=== PATIENT | female | born 1960 | race Caucasian/White ===

== ENCOUNTER 2017-10-31 03:47 | Emergency (ER) | payer MEDICAID ==
[~2017-10-31] VITALS: Ht 157.5 cm; Wt 120.2 kg
[~2017-10-31 03:47] MED LIST: 12 HOUR DECONG120 MG PO; ABILIFY; ABILIFY 5 MG TAB5 M1 PO; ABILIFY10 MG PO; ACETAMINOPHEN325 M1 PO; ACTOS 45 MG45 M1; ADVAIR HFA 230M12 GM INH; ALBUTEROL INH INH; ALBUTEROL2.5 MG/0.1 INH; ALDACTONE25 MG; ASPIR 8181 MG PO; ASPIRIN325 PO; AUGMENTIN 875-1 EACH PO; AUGMENTIN 875875 M1 PO; AUGMENTIN 875875 MG PO; AZITHROMYCIN; AZITHROMYCIN 2250 MG PO; AZITHROMYCIN250 MG PO; AZO CRANBERRY1 EAC1; AZO STANDARD95 MG; CARDIZEM CD240 MG PO; CEFTIN500 MG PO; CEFUROXIME250 MG PO; CEFUROXIME500 MG PO; CELEBREX 200 M200 M1; CHLORTHALIDONE25 MG PO; CIPRO250 M2 PO; CIPRO500 MG PO; CIPROFLOXACIN500 M1 PO; CLEOCIN HCL300 MG PO; CLONAZEPAM 1 MG1 M1; CLONAZEPAM 1 MG1 M1 PO; COMPAZINE5 MG; CRESTOR10 MG; CYMBALTA20 MG PO; CYMBALTA60 MG PO; DIFLUCAN150 MG PO; DOXYCYCLINE 10100 MG PO; DUONEB 2.5-0.5 M3 ML; DUONEB 2.5-0.5 M3 ML INH; FISH OIL 1,001000 M2; FISH OIL 1,001000 M2 PO; FISHOIL; FLONASE 0.05%50 MCG NASAL; FUROSEMIDE 40 M40 M1 PO; GABAPENTIN 100100 MG PO; GEMFIBROZIL 60600 MG PO; GLUCOPHAGE500 MG PO; GLUCOPHAGE850 MG PO; GLUCOTROL5 MG PO; HYDROCODON-ACE1 EACH PO; INVOKANA100 MG PO; IRON325 PO; K-DUR10 ME1; KETOCONAZOLE15 GM TOP; KLONAPIN; KLOR-CON 1010 MEQ PO; LANTUS100 UNIT/M SUBQ; LASIX 80 MG TAB80 MG PO; LEVAQUIN 500 M500 M2 PO; LEVAQUIN 500 M500 M5 PO; LEVAQUIN 500 M500 MG PO; LEVAQUIN 750 M750 MG PO; LEVAQUIN PO; LEVEMIR SUBQ; LEVOTHYROXINE 0.1 MG PO; LIDODERM 5%1 PATCH TRANSDERM; LIPITOR; LIPITOR40 MG PO; LISINOPRIL20 MG PO; LORTAB 10-3251 EACH PO; MAGOX 400400 MG PO; METFORMIN HCL500 MG PO; METOPROLOL; METOPROLOL SUC100 MG PO; METROGEL-VAGINA70 GM VG; MIRALAX17 GM PO; MIRALAX255 GM; MUCINEX TA600 MG/TA2 PO; MUCINEX600 MG PO; NAPROSYN500 MG PO; NASONEX17 GM; NASONEX17 GM NASAL; NEURONTIN600 MG; NITROGLYCERIN0.4 MG SL; NITROGLYCERIN0.4 MG SUBLING; NITROSTAT0.4 MG; NORCO 5-325 TA1 EACH PO; NOVOLOG100 UNIT/1 SUBQ; NOVOLOG100 UNIT/M SUBQ; NYSTATIN 1100000 U/M PO; NYSTATIN1 EAC9; OMEGA-31000 M1 PO; OMEPRAZOLE40 MG PO; ONDANSETRON HCL4 M2 PO; ONE TOUCH DELI1 EACH MC; OSTERA TABLET1 EAC1 PO; OXYCONTIN80 M1; OXYIR5 MG PO; PAXIL20 MG; PERCOCET 7.5-31 EACH PO; PERCOCET PO; PLAVIX 75 MG TA75 M1 PO; PLAVIX 75 MG TA75 MG; PREDNISONE 10 M10 M1 PO; PREDNISONE 10 M10 MG PO; PREDNISONE 20 M20 MG PO; PREDNISONE50 MG PO; PRINIVIL40 MG PO; PROAIR HFA8.5 GM INH; PROTONIX40 M1 PO; PROTONIX40 M4 PO; PYRIDIUM200 MG PO; REGLAN 10 MG TA10 MG PO; SENOKOT-S1 TA1; SEROQUEL 100 M100 M1 PO; SINGULAIR 10 MG10 M1 PO; SPIRIVA INH; SPIRONOLACTONE50 MG PO; SYMBICORT160 MCG/4. INH; SYMBICORT80 MCG/4.1 INH; TESSALON PERLE100 MG PO; TOPROL XL25 MG; TRICOR145 MG; TYLENOL325 MG PO; VENTOLIN HFA 1818 GM INH; ZEGERID 20 MG1 EACH; ZEGERID OTC 201 EACH PO; ZOFRAN 4 MG ORAL4 MG PO; ZPAK PO; [UNRECOGNIZED DRUG - OTHER]
[2017-10-31] MEDS ORDERED: HYDROXYZINE HCL25 M1 PO (05:11)
[2017-10-31] MEDS ORDERED: PREDNISONE50 MG PO (05:11)
[2017-10-31] MEDS ORDERED: VALIUM5 MG PO (05:11)
[2017-10-31 05:32] VITALS: BP 129/63
== END 2017-10-31 05:41 | disposition home or self-care (01) ==
LOC: M.ERS 03:47
DX: L29.9 Pruritus, unspecified (principal); I15.0 Renovascular hypertension; J44.9 Chronic obstructive pulmonary disease, unspecified; G89.29 Other chronic pain; F41.9 Anxiety disorder, unspecified; E11.9 Type 2 diabetes mellitus without complications; K76.0 Fatty (change of) liver, not elsewhere classified; Z87.01 Personal history of pneumonia (recurrent); Z95.5 Presence of coronary angioplasty implant and graft; Z87.891 Personal history of nicotine dependence

== ENCOUNTER 2018-03-14 22:09 | Inpatient (IN) | payer MEDICAID ==
[~2018-03-14] VITALS: Ht 157.5 cm; Wt 121.1 kg
[~2018-03-14 22:09] MED LIST changes: +HYDROXYZINE HCL25 M1 PO; +VALIUM5 MG PO
[2018-03-14 22:16] VITALS: BP 145/66
[2018-03-14 22:36] LABS: ABSOLUTE BASOPHILS 0.3 thou/uL (0.0-0.2); ABSOLUTE EOSINOPHILS 0.6 thou/uL (0.0-0.7); ABSOLUTE NEUTROPHILS 11.7 thou/uL (1.6-8.1); BASOPHILS 1.4 %; EOSINOPHILS 3.2 %; HEMOGLOBIN 12.2 gm/dL (12.0-15.0); LYMPHOCYTES 22.6 %; MCH 26.9 pg (26.0-34.0); MCHC 32.1 g/dL (28.0-37.0); MCV 83.9 fL (80.0-100.0); MONOCYTES 5.9 %; MPV 7.6 fl. (7.2-11.1); NUCLEATED RBCS 0 /100WBC; PLATELET COUNT* 394 thou/uL (150-400); POLYS 66.9 %; RBC 4.53 mil/uL (4.20-5.00); RDW-CV 14.5 % (10.5-14.5); WBC 17.5 thou/uL (4.0-11.0)
[2018-03-14 22:45] LABS: ANION GAP 11 mmol/L (7-16); BUN 16 mg/dL (7-18); CALCIUM 9.4 mg/dL (8.5-10.1); CHLORIDE 91 mmol/L (98-107); CO2 31 mmol/L (21-32); CREATININE 0.8 mg/dL (0.6-1.3); GLUCOSE 288 mg/dL (70-99); POTASSIUM 3.9 mmol/L (3.5-5.1); SODIUM 133 mmol/L (136-145)
[2018-03-14 22:55] LABS: ALBUMIN 3.3 g/dL (3.4-5.0); ALKALINE PHOSPHATASE 184 U/L (46-116); NT-PRO BRAIN NAT PEPTIDE 37 pg/mL (<300); SGOT 46 U/L (15-37); SGPT 22 U/L (30-65); TOTAL BILIRUBIN 0.3 mg/dL (<0.1-1.0); TOTAL PROTEIN 8.6 g/dL (6.4-8.2); TROPONIN-I LEVEL <0.06 ng/mL (<0.06)
[2018-03-15 00:59] VITALS: BP 117/45
[2018-03-15 01:40] VITALS: BP 127/45
[2018-03-15] MEDS ORDERED: HYDROCODONE-ACE15 ML PO (02:04)
--- NOTE | 2018-03-15 04:10 | NUR ---
PT TO FLOOR APROX 0100, ASSUMED CARE. PT A&O X4 CALM COOPERITVE. STAND BY ASSIST. SR ON THE MONITOR. 3L O2. FLUIDS GOING. SEE MAR. SEE CHARTING. VITALS WNL. FALL PRECAUTIONS IN PLACE. HOURLY ROUNDING FOR SAFETY.
[2018-03-15 08:00] VITALS: BP 138/56
--- NOTE | 2018-03-15 11:35 | NUR ---
Pt is A&O. Known to this CM from previous hospital stays. Pt resides at home with her dtr. Pt has inhome care providers, through [facility], they come 7 days/week for 3 hrs/day. [facility] provides cooking and cleaning and also assists Pt with bath, grooming and dressing. Pt has a walker, cane and wc at home that she uses for mobility. Pt stated that a friend of hers is going to install grab bars in her shower. Pt wears home o2 and bipap through [employer]. No hx of HH or SNF. Supportive family that is involved in POC. Pt is hopeful to be able to dc prior to the holiday weekend. Following.
[2018-03-15 12:30] VITALS: BP 139/50
--- NOTE | 2018-03-15 15:17 | NUR ---
[facility] CARE OF PATIENT THIS AM AT 0730. PATIENT IS ALERT AND ORIENTED X 4. SHE C/O CHRONIC BACK PAIN THIS AM. PATIENT'S MEDICATIONS HAD NOT BEEN ORDERED INITIALLY THIS AM. HER BLOOD SUGAR WAS 418. PATIENT'S DR NOTIFIED AND ORDERS STARTED. PATIENT MEDICATED FOR PAIN X 1 THIS AM. PATIENT STATED THAT PAIN HAD DECREASED BUT WAS STILL PRESENT. PATIENT'S REPEAT BLOOD SUGAR WAS >500. STAT LAB PERFORMED. DR ALVAREZ NOTIFIED OF THE RESULTS. PATIENT REMEDICATED FOR BLOOD SUGAR CONTROL. IV FLUIDS INFUSING PER ORDER. TELE SHOWS NSR. PATIENT REQUESTING MORE PAIN MEDICATION. PATIENT INFORMED THAT PAIN MEDICATION HAD BEEN DISCONTINUED AT THIS TIME. REQUESTED PATIENT GIVE HER CURRENT PHARMACY FOR HER PAIN MEDICATION SHE TAKES A OUTPATIENT. PATIENT WAS UNABLE TO PROVIDE THE INFORMATION REQUESTED AT THIS TIME. PATIENT GIVEN TYLENOL PO X 1 FOR PAIN. SHE IS RESTING AT THIS TIME. TELE SHOWS NSR. WILL CONTINUE TO MONITOR. IV FLUIDS GIVEN PER [facility]PS[facility].
[2018-03-15 16:23] VITALS: BP 139/44
--- NOTE | 2018-03-15 16:27 | EKG ---
[place] [address] ELECTROCARDIOGRAM REPORT Name: LEILA ANAND Room: [address] IN .R.#: [id number] Admission: 03/14/18 Attend Phys: Evie Pryor Discharge: Date of : 58 Report #: [id number] THIS REPORT FOR: //name// [facility] ED Test Date: 2018-03-14 Test Time: 23:01:48 Pat Name: LEILA ANAND Department: Room: Gender: Airfield Services Officer: JOAO Stark : 1960 Requested By: Irvin Andrade Order Number: [id number] MD: Adolph Lanza Measurements Intervals [place] Rate: 96 P: 75 IN: 143 QRS: -27 QRSD: 81 T: 69 QT: 366 QTc: 463 Interpretive Statements Sinus rhythm Atrial premature complex Borderline left axis deviation Compared to ECG 10/17/2017 01:14:25 Atrial premature complex(es) now present Myocardial infarct finding no longer present Electronically Signed On 03-15-2018 16:27:42 CDT by Adolph Lanza [email or web address] <ELECTRONICALLY SIGNED> By: Adolph Lanza MD, [facility] 03/15/18 1627 230 230 Adolph Lanza MD, [facility] /EPI
[2018-03-15 19:40] VITALS: BP 120/50
[2018-03-16] VITALS: BP 163/66
[2018-03-16 04:39] VITALS: BP 104/51
[2018-03-16 05:04] LABS: ABSOLUTE LYMPHOCYTES 1.5 thou/uL (0.8-5.3); ABSOLUTE MONOCYTES 0.8 thou/uL (0.0-1.2); ABSOLUTE NEUTROPHILS 11.2 thou/uL (1.6-8.1); BASOPHILS 0.2 %; EOSINOPHILS 0.1 %; HEMATOCRIT 34.7 % (37.0-47.0); HEMOGLOBIN 10.8 gm/dL (12.0-15.0); MCH 26.5 pg (26.0-34.0); MCHC 31.2 g/dL (28.0-37.0); MCV 84.8 fL (80.0-100.0); NUCLEATED RBCS 0 /100WBC; PLATELET COUNT* 326 thou/uL (150-400); POLYS 82.7 %; RBC 4.09 mil/uL (4.20-5.00); RDW-CV 14.6 % (10.5-14.5); WBC 13.5 thou/uL (4.0-11.0)
[2018-03-16 05:41] LABS: CALCIUM 9.6 mg/dL (8.5-10.1); CREATININE 0.9 mg/dL (0.6-1.3); POTASSIUM 4.4 mmol/L (3.5-5.1)
--- NOTE | 2018-03-16 06:02 | NUR ---
PT CRIT GLUCOSE 551, PROVIDER NOTIFED NEW ORDERS GIVEN, ADJUST INSULIN. SR ON THE MONITOR. RA. STAND BY ASSIST. SEE MAR. SEE CHARTING. VITALS WNL. FALL PRECAUTIONS IN PLACE, PT IS NONE COMPLIENT WITH FALL RISK. HOURLY ROUNDING FOR SAFETY.
[2018-03-16 08:00] VITALS: BP 108/60
--- NOTE | 2018-03-16 10:00 | NUR ---
ASSUMED CARE OF PT AFTER REPORT. PT IS ALERT AND ORIENTED X4. VITAL SIGNS TAKEN AND RECORDED. PHYSICAL ASSESSMENT COMPLETED AND CHARTED. PT COMPLAINED OF BACK AND KNEE PAIN WITH PAIN SCALE OF 8/10. DENIES NEED OF PAIN MEDICATION OF THE MOMENT. UP WITH TOBYBY ASSIST. CALL LIGHT WITHIN REACH. WILL CONTINUE TO MONITOR PT.
[2018-03-16 11:53] VITALS: BP 133/54
[2018-03-16] MEDS ORDERED: SERTRALINE HCL50 MG PO (12:55)
--- NOTE | 2018-03-16 12:55 | NUR ---
CALLED PT'S PHARMACY TO VERIFY SOME OF THE MEDICATIONS PT REPORTS TAKING. PT'S PHARMACY DOES NOT HAVE HYDROCODONE ON FILE FOR PT. PHARMACY DID HAVE RECENT REFILL FOR ZOLOFT 50MG-THIS MEDICATION ADDED TO PT'S HOME MED REC IN SYSTEM.
[2018-03-16 16:00] VITALS: BP 116/69
--- NOTE | 2018-03-16 18:27 | NUR ---
PT COMPLAINED OF BACK PAIN AT 1100. VERIFIED TO REGARDING THE HYDROCODONE ORAL SUSPENSION. WHILE WAITING FOR THE REPLY DECIDED TO GIVE PAIN MEDS ORAL SUSPENSION DUE TO PERSISTENT LOWER BACK PAIN WITH PAIN SCALE OF 8/10. CHECKED AFTER AN HOUR AND PARTIAL RELIEF OF PAIN NOTED.HYDROCODONE ORAL SUSPENSION WAS SHIFTED TO TABLET. POC GLUCOSE WAS >500. SENT LAB STAT ORDER FOR GLUCOSE. SUNITA FROM LAB CALLED BACK AND THE RESULT OF GLUCOSE IS [address] ALVAREZ WITH NEW ORDER TO GIVE 60 UNITS OF INSULIN GLARGINE. GENERALLY BACK PAIN WAS RELIEVED BY ORAL MEDS. STILL SR ON TELE. CALL LIGHT WITHIN REACH. WILL CONTINUE TO MONITOR PT.
[2018-03-16 20:10] VITALS: BP 127/64
[2018-03-17 00:33] VITALS: BP 103/34
[2018-03-17 04:08] VITALS: BP 113/60
[2018-03-17 08:00] VITALS: BP 119/82
--- NOTE | 2018-03-17 09:57 | NUR ---
Nutrition: BMI 49. Pt's wt has been coming down over time. 10# loss in past 6 months. We have discussed diet on several occasions. Pt is always very receptive to info. BG was 537, now 256. Albumin 3.3. +BM. Back pain. GOAL: continued weight loss over time. Low nutrition risk.
[2018-03-17] MEDS ORDERED: AUGMENTIN 875-1 EACH PO (10:45)
[2018-03-17] MEDS ORDERED: PREDNISONE 10 M10 MG PO (10:50)
[2018-03-17 10:51] VITALS: BP 119/82
--- NOTE | 2018-03-17 12:16 | NUR ---
ASSUMED PT CARE AFTER REPORT. ALERT AND ORIENTED X 4. VITAL SIGNS TAKEN AND RECORDED. PHYSICAL ASSESSMENT COMPLETED AND CHARTED. ON NASAL CANNULA @ 3LPM. UP WITH STANDBY ASSIST. COMPLAINED OF BACK PAIN AND TREATED WITH MEDICATIONS. CALL LIGHT WITHIN REACH. WILL CONTINUE TO MONITOR PT.
== END 2018-03-17 16:00 | disposition home or self-care (01) | DRG 193 ==
LOC: M.ERS 22:09 → M.2W 22:59 → M.TBA-ER 22:59 → M.2W 03-15 00:38
PROVIDERS: Family Medicine; Internal Medicine; ADMIT Internal Medicine
DX: J18.9 Pneumonia, unspecified organism (principal); J96.20 Acute and chronic respiratory failure, unspecified whether with hypoxia or hypercapnia; J44.1 Chronic obstructive pulmonary disease with (acute) exacerbation; E87.2 Acidosis; R65.10 Systemic inflammatory response syndrome (SIRS) of non-infectious origin without acute organ dysfunction; Z68.42 Body mass index [BMI] 45.0-49.9, adult; J44.0 Chronic obstructive pulmonary disease with (acute) lower respiratory infection; I50.9 Heart failure, unspecified; G89.29 Other chronic pain; F32.9 Major depressive disorder, single episode, unspecified; F41.9 Anxiety disorder, unspecified; E11.9 Type 2 diabetes mellitus without complications; E78.00 Pure hypercholesterolemia, unspecified; E11.65 Type 2 diabetes mellitus with hyperglycemia; E66.01 Morbid (severe) obesity due to excess calories; Z99.81 Dependence on supplemental oxygen; Z90.49 Acquired absence of other specified parts of digestive tract; Z98.61 Coronary angioplasty status; Z87.01 Personal history of pneumonia (recurrent); Z79.899 Other long term (current) drug therapy; Z79.4 Long term (current) use of insulin; Z87.891 Personal history of nicotine dependence

== ENCOUNTER 2018-04-02 23:34 | Emergency (ER) | payer MEDICAID ==
[~2018-04-02] VITALS: Ht 157.5 cm; Wt 120.2 kg
[~2018-04-02 23:34] MED LIST changes: +HYDROCODONE-ACE15 ML PO; +SERTRALINE HCL50 MG PO
[2018-04-02] MEDS ORDERED: CLONAZEPAM 1 MG1 M1 (23:47)
[2018-04-03 00:36] LABS: URINE BILIRUBIN NEGATIVE (Negative); URINE BLOOD NEGATIVE (Negative); URINE CLARITY CLEAR; URINE COLOR YELLOW; URINE GLUCOSE-RANDOM 2+ (Negative); URINE KETONES NEGATIVE (Negative); URINE LEUKOCYTES-REFLEX NEGATIVE (Negative); URINE NITRITE-REFLEX NEGATIVE (Negative); URINE PROTEIN TRACE (Negative); URINE UROBILINOGEN 0.2 E.U./dl (0.2-1.0)
[2018-04-03 00:47] LABS: ABSOLUTE EOSINOPHILS 0.4 thou/uL (0.0-0.7); ABSOLUTE LYMPHOCYTES 3.8 thou/uL (0.8-5.3); ABSOLUTE MONOCYTES 1.2 thou/uL (0.0-1.2); ABSOLUTE NEUTROPHILS 8.2 thou/uL (1.6-8.1); BASOPHILS 0.2 %; EOSINOPHILS 2.9 %; HEMATOCRIT 35.3 % (37.0-47.0); HEMOGLOBIN 11.2 gm/dL (12.0-15.0); LYMPHOCYTES 27.9 %; MCH 27.1 pg (26.0-34.0); MCHC 31.7 g/dL (28.0-37.0); MCV 85.4 fL (80.0-100.0); MONOCYTES 8.5 %; MPV 7.6 fl. (7.2-11.1); NUCLEATED RBCS 0 /100WBC; PLATELET COUNT* 299 thou/uL (150-400); POLYS 60.5 %; RBC 4.14 mil/uL (4.20-5.00); RDW-CV 15.3 % (10.5-14.5); WBC 13.6 thou/uL (4.0-11.0)
[2018-04-03 01:01] LABS: CALCIUM 9.5 mg/dL (8.5-10.1); CREATININE 0.8 mg/dL (0.6-1.3); POTASSIUM 4.7 mmol/L (3.5-5.1)
[2018-04-03 01:06] LABS: ALBUMIN 3.2 g/dL (3.4-5.0); TOTAL BILIRUBIN 0.4 mg/dL (<0.1-1.0)
[2018-04-03] MEDS ORDERED: AUGMENTIN 875-1 EACH PO (01:39)
[2018-04-03 02:04] VITALS: BP 122/72
== END 2018-04-03 02:11 | disposition home or self-care (01) ==
LOC: M.ERS 23:34
PROVIDERS: Emergency Medicine; Nurse Practitioner Family
DX: R50.9 Fever, unspecified (principal); I11.0 Hypertensive heart disease with heart failure; I50.9 Heart failure, unspecified; G89.29 Other chronic pain; M54.9 Dorsalgia, unspecified; F41.9 Anxiety disorder, unspecified; E11.9 Type 2 diabetes mellitus without complications; F41.0 Panic disorder [episodic paroxysmal anxiety]; Z87.891 Personal history of nicotine dependence; Z90.49 Acquired absence of other specified parts of digestive tract; Z95.5 Presence of coronary angioplasty implant and graft; Z79.4 Long term (current) use of insulin

== ENCOUNTER 2018-06-12 21:26 | Emergency (ER) | payer MEDICAID ==
[~2018-06-12] VITALS: Ht 157.5 cm; Wt 111.6 kg
[2018-06-12] MEDS ORDERED: ZEGERID 20 MG1 EACH (21:49)
[2018-06-12 22:29] LABS: ABSOLUTE BASOPHILS 0.1 thou/uL (0.0-0.2); ABSOLUTE EOSINOPHILS 0.4 thou/uL (0.0-0.7); ABSOLUTE LYMPHOCYTES 3.1 thou/uL (0.8-5.3); ABSOLUTE MONOCYTES 1.1 thou/uL (0.0-1.2); ABSOLUTE NEUTROPHILS 8.2 thou/uL (1.6-8.1); BASOPHILS 0.9 %; EOSINOPHILS 3.1 %; HEMATOCRIT 38.1 % (37.0-47.0); HEMOGLOBIN 12.1 gm/dL (12.0-15.0); MCH 27.1 pg (26.0-34.0); MCHC 31.9 g/dL (28.0-37.0); MONOCYTES 8.2 %; MPV 7.1 fl. (7.2-11.1); NUCLEATED RBCS 0 /100WBC; PLATELET COUNT* 333 thou/uL (150-400); POLYS 63.8 %; RBC 4.48 mil/uL (4.20-5.00); RDW-CV 14.7 % (10.5-14.5); WBC 12.9 thou/uL (4.0-11.0)
[2018-06-12 22:43] LABS: ANION GAP 6 mmol/L (7-16); BUN 14 mg/dL (7-18); CALCIUM 8.7 mg/dL (8.5-10.1); CHLORIDE 96 mmol/L (98-107); CO2 35 mmol/L (21-32); CREATININE 0.8 mg/dL (0.6-1.3); GLUCOSE 286 mg/dL (70-99); POTASSIUM 4.1 mmol/L (3.5-5.1); SODIUM 137 mmol/L (136-145)
[2018-06-12 22:54] LABS: ALBUMIN 3.2 g/dL (3.4-5.0); ALKALINE PHOSPHATASE 216 U/L (46-116); NT-PRO BRAIN NAT PEPTIDE 69 pg/mL (<300); SGOT 54 U/L (15-37); SGPT 32 U/L (30-65); TOTAL BILIRUBIN 0.3 mg/dL (<0.1-1.0); TOTAL PROTEIN 8.5 g/dL (6.4-8.2); TROPONIN-I LEVEL <0.06 ng/mL (<0.06)
[2018-06-12 23:42] LABS: ESR (SEDRATE) 61 mm/hr (0-30)
[2018-06-12] MEDS ORDERED: AUGMENTIN 875-1 EACH PO (23:45)
[2018-06-12] MEDS ORDERED: NORCO 7.5-3251 EACH PO (23:45)
[2018-06-13 00:41] LABS: URINE BILIRUBIN NEGATIVE (Negative); URINE BLOOD TRACE (Negative); URINE CLARITY SL CLOUDY; URINE COLOR YELLOW; URINE GLUCOSE-RANDOM 1+ (Negative); URINE KETONES NEGATIVE (Negative); URINE LEUKOCYTES-REFLEX NEGATIVE (Negative); URINE NITRITE-REFLEX NEGATIVE (Negative); URINE PROTEIN 1+ (Negative); URINE SPECIFIC GRAVITY >= 1.030 (1.005-1.030); URINE UROBILINOGEN 0.2 E.U./dl (0.2-1.0)
[2018-06-13 01:17] VITALS: BP 120/56
[2018-06-13 01:34] LABS: CASTS None Seen /LPF (None Seen); SQUAMOUS >10 Many /LPF (0-3)
[2018-06-13 01:35] LABS: URINE RBC 3-10 Few /HPF (0-2); URINE WBC-REFLEX 0-5 Rare /HPF (0-5)
[2018-06-13 01:36] LABS: BACTERIA-REFLEX >30 Many /HPF (None Seen); CRYSTALS None Seen /LPF (None Seen)
--- NOTE | 2018-06-13 09:40 | EKG ---
[place] [address] ELECTROCARDIOGRAM REPORT Name: LEILA ANAND Room: [facility]#: [id number] Admission: 06/12/18 Attend Phys: Discharge: 06/13/18 Date of : 58 Report #: [id number] THIS REPORT FOR: //name// [facility] ED Test Date: 2018-06-12 Test Time: 22:51:22 Pat Name: LEILA ANAND Department: Room: Gender: F Receiving Clerk: VIRA : 1960 Requested By: Trista Avila Order Number: [id number] MD: Kobe Tan Measurements Intervals [place] Rate: 94 P: 55 [place]: 150 QRS: -25 QRSD: 76 T: 73 QT: 358 QTc: 448 Interpretive Statements Sinus rhythm Borderline left axis deviation Minimal ST elevation, lateral leads Compared to ECG 03/14/2018 23:01:48 ST (T wave) deviation now present Atrial premature complex(es) no longer present Electronically Signed On 06-13-2018 9:40:18 CDT by Kobe Tan [email or web address] <ELECTRONICALLY SIGNED> By: Kobe Tan MD, FAC 06/13/18 0940 2251 225 Kobe Tan MD, [facility] /EPI
== END 2018-06-13 01:18 | disposition home or self-care (01) ==
LOC: M.ERS 21:26
PROVIDERS: Emergency Medicine
DX: J18.9 Pneumonia, unspecified organism (principal); T43.225A Adverse effect of selective serotonin reuptake inhibitors, initial encounter; I11.0 Hypertensive heart disease with heart failure; I50.9 Heart failure, unspecified; J44.9 Chronic obstructive pulmonary disease, unspecified; G89.29 Other chronic pain; M54.9 Dorsalgia, unspecified; F32.9 Major depressive disorder, single episode, unspecified; F41.9 Anxiety disorder, unspecified; F41.0 Panic disorder [episodic paroxysmal anxiety]; E11.9 Type 2 diabetes mellitus without complications; E78.00 Pure hypercholesterolemia, unspecified; Z95.5 Presence of coronary angioplasty implant and graft; Z90.49 Acquired absence of other specified parts of digestive tract; Z79.4 Long term (current) use of insulin; Z87.891 Personal history of nicotine dependence; Y92.89 Other specified places as the place of occurrence of the external cause

== ENCOUNTER 2018-06-19 12:10 | Emergency (ER) | payer MEDICAID ==
[~2018-06-19] VITALS: Ht 157.5 cm; Wt 118.4 kg
[~2018-06-19 12:10] MED LIST changes: +NORCO 7.5-3251 EACH PO
[2018-06-19 12:53] LABS: ABSOLUTE BASOPHILS 0.1 thou/uL (0.0-0.2); ABSOLUTE EOSINOPHILS 0.4 thou/uL (0.0-0.7); ABSOLUTE LYMPHOCYTES 3.3 thou/uL (0.8-5.3); ABSOLUTE MONOCYTES 0.9 thou/uL (0.0-1.2); ABSOLUTE NEUTROPHILS 8.7 thou/uL (1.6-8.1); BASOPHILS 1.1 %; HEMOGLOBIN 12.6 gm/dL (12.0-15.0); LYMPHOCYTES 24.6 %; MCH 27.1 pg (26.0-34.0); MCHC 32.2 g/dL (28.0-37.0); MCV 84.3 fL (80.0-100.0); MONOCYTES 6.8 %; MPV 7.3 fl. (7.2-11.1); NUCLEATED RBCS 0 /100WBC; PLATELET COUNT* 367 thou/uL (150-400); POLYS 64.5 %; RBC 4.63 mil/uL (4.20-5.00); RDW-CV 14.9 % (10.5-14.5); WBC 13.5 thou/uL (4.0-11.0)
[2018-06-19 13:07] LABS: ANION GAP 7 mmol/L (7-16); BUN 11 mg/dL (7-18); CALCIUM 9.4 mg/dL (8.5-10.1); CHLORIDE 95 mmol/L (98-107); CO2 32 mmol/L (21-32); CREATININE 0.7 mg/dL (0.6-1.3); GLUCOSE 324 mg/dL (70-99); POTASSIUM 4.7 mmol/L (3.5-5.1); SODIUM 134 mmol/L (136-145)
[2018-06-19 13:13] LABS: ALBUMIN 3.3 g/dL (3.4-5.0); ALKALINE PHOSPHATASE 213 U/L (46-116); NT-PRO BRAIN NAT PEPTIDE 39 pg/mL (<300); SGOT 53 U/L (15-37); SGPT 28 U/L (30-65); TOTAL BILIRUBIN 0.3 mg/dL (<0.1-1.0); TOTAL PROTEIN 8.6 g/dL (6.4-8.2); TROPONIN-I LEVEL <0.06 ng/mL (<0.06)
[2018-06-19] MEDS ORDERED: ADVAIR HFA 230M12 GM INH (13:33)
[2018-06-19] MEDS ORDERED: AUGMENTIN 875-1 EACH PO (13:33)
[2018-06-19] MEDS ORDERED: VENTOLIN HFA 1818 GM INH (13:33)
[2018-06-19] MEDS ORDERED: MEDROLDOSEPACK PO (13:33)
[2018-06-19] MEDS ORDERED: TESSALON PERLE100 MG PO (13:41)
[2018-06-19 13:57] VITALS: BP 148/54
--- NOTE | 2018-06-19 15:14 | EKG ---
[place] [address] ELECTROCARDIOGRAM REPORT Name: LEILA ANAND Amanda Room: [facility]#: [id number] Admission: 06/19/18 Attend Phys: Discharge: 06/19/18 Date of : 58 Report #: [id number] THIS REPORT FOR: //name// [facility] ED Test Date: 2018-06-19 Test Time: 12:25:49 Pat Name: LEILA ANAND Department: Room: Gender: F Desktop Operator: Mi LACKEY : 1960 Requested By: Amilcar Stephens Order Number: [id number] MD: Adolph Lanza Measurements Intervals [place] Rate: 95 P: 58 [place]: 148 QRS: -29 QRSD: 80 T: 81 QT: 346 QTc: 435 Interpretive Statements Sinus rhythm Borderline left axis deviation Low voltage, precordial leads Consider anterior infarct Baseline wander in lead(s) V4 Compared to ECG 06/12/2018 22:51:22 Low QRS voltage now present Myocardial infarct finding now present ST (T wave) deviation no longer present Electronically Signed On 06-19-2018 15:14:44 CDT by Adolph Lanza [email or web address] <ELECTRONICALLY SIGNED> By: Adolph Lanza MD, FAC 06/19/18 1514 1225 1225 Adolph Lanza MD, FAC /EPI
== END 2018-06-19 13:58 | disposition home or self-care (01) ==
LOC: M.ERS 12:10
PROVIDERS: Emergency Medicine
DX: J44.9 Chronic obstructive pulmonary disease, unspecified (principal); I11.0 Hypertensive heart disease with heart failure; I50.9 Heart failure, unspecified; K76.0 Fatty (change of) liver, not elsewhere classified; G89.29 Other chronic pain; M54.9 Dorsalgia, unspecified; F32.9 Major depressive disorder, single episode, unspecified; F41.0 Panic disorder [episodic paroxysmal anxiety]; E11.9 Type 2 diabetes mellitus without complications; E78.00 Pure hypercholesterolemia, unspecified; Z98.890 Other specified postprocedural states; Z95.5 Presence of coronary angioplasty implant and graft; Z90.49 Acquired absence of other specified parts of digestive tract; Z87.891 Personal history of nicotine dependence; Z88.8 Allergy status to other drugs, medicaments and biological substances

== ENCOUNTER 2018-09-21 19:19 | Emergency (ER) | payer MEDICAID ==
[~2018-09-21] VITALS: Ht 157.5 cm; Wt 110.7 kg
[~2018-09-21 19:19] MED LIST changes: +MEDROLDOSEPACK PO
[2018-09-21] MEDS ORDERED: CIPRODEX OTIC7.5 ML OTIC (19:46)
[2018-09-21 20:04] VITALS: BP 172/86
== END 2018-09-21 20:04 | disposition home or self-care (01) ==
LOC: M.ERS 19:19
DX: H60.92 Unspecified otitis externa, left ear (principal); I11.0 Hypertensive heart disease with heart failure; I50.9 Heart failure, unspecified; J44.9 Chronic obstructive pulmonary disease, unspecified; G89.29 Other chronic pain; M54.9 Dorsalgia, unspecified; F32.9 Major depressive disorder, single episode, unspecified; F41.0 Panic disorder [episodic paroxysmal anxiety]; E11.9 Type 2 diabetes mellitus without complications; E78.00 Pure hypercholesterolemia, unspecified; Z87.01 Personal history of pneumonia (recurrent); Z95.5 Presence of coronary angioplasty implant and graft; Z90.49 Acquired absence of other specified parts of digestive tract; Z98.890 Other specified postprocedural states; Z87.891 Personal history of nicotine dependence; Z88.8 Allergy status to other drugs, medicaments and biological substances; Z79.4 Long term (current) use of insulin

== ENCOUNTER 2018-12-28 21:35 | Emergency (ER) | payer MEDICAID ==
[~2018-12-28] VITALS: Ht 157.5 cm; Wt 113.8 kg
[~2018-12-28 21:35] MED LIST changes: +CIPRODEX OTIC7.5 ML OTIC
[2018-12-28] MEDS ORDERED: U-500 SUBQ (21:50)
[2018-12-28 22:14] LABS: ABSOLUTE BASOPHILS 0.1 thou/uL (0.0-0.2); ABSOLUTE EOSINOPHILS 0.4 thou/uL (0.0-0.7); ABSOLUTE LYMPHOCYTES 4.2 thou/uL (0.8-5.3); ABSOLUTE NEUTROPHILS 6.7 thou/uL (1.6-8.1); BASOPHILS 0.7 %; EOSINOPHILS 3.3 %; HEMATOCRIT 37.9 % (37.0-47.0); HEMOGLOBIN 12.3 gm/dL (12.0-15.0); LYMPHOCYTES 33.7 %; MCH 27.8 pg (26.0-34.0); MCHC 32.4 g/dL (28.0-37.0); MCV 85.7 fL (80.0-100.0); MONOCYTES 8.4 %; MPV 7.5 fl. (7.2-11.1); NUCLEATED RBCS 0 /100WBC; PLATELET COUNT* 303 thou/uL (150-400); POLYS 53.9 %; RBC 4.42 mil/uL (4.20-5.00); RDW-CV 14.7 % (10.5-14.5); WBC 12.5 thou/uL (4.0-11.0)
[2018-12-28 22:21] LABS: ALBUMIN 3.2 g/dL (3.4-5.0); CALCIUM 9.4 mg/dL (8.5-10.1); CREATININE 0.8 mg/dL (0.6-1.3); POTASSIUM 4.6 mmol/L (3.5-5.1); TOTAL BILIRUBIN 0.2 mg/dL (<0.1-1.0); TOTAL PROTEIN 7.6 g/dL (6.4-8.2)
[2018-12-28 23:25] LABS: URINE BILIRUBIN NEGATIVE (Negative); URINE BLOOD NEGATIVE (Negative); URINE CLARITY CLEAR; URINE COLOR YELLOW; URINE GLUCOSE-RANDOM NEGATIVE (Negative); URINE KETONES NEGATIVE (Negative); URINE LEUKOCYTES-REFLEX NEGATIVE (Negative); URINE NITRITE-REFLEX NEGATIVE (Negative); URINE PROTEIN 1+ (Negative); URINE SPECIFIC GRAVITY 1.025 (1.005-1.030); URINE UROBILINOGEN 0.2 E.U./dl (0.2-1.0)
[2018-12-28] MEDS ORDERED: TRAMADOL 50 MG50 MG PO (23:33)
[2018-12-28 23:53] VITALS: BP 141/62
== END 2018-12-28 23:57 | disposition home or self-care (01) ==
LOC: M.ERS 21:35
PROVIDERS: Nurse Practitioner Psychiatric/Mental Health
DX: M54.16 Radiculopathy, lumbar region (principal); I11.0 Hypertensive heart disease with heart failure; I50.9 Heart failure, unspecified; E78.00 Pure hypercholesterolemia, unspecified; E11.9 Type 2 diabetes mellitus without complications; F41.9 Anxiety disorder, unspecified; F32.9 Major depressive disorder, single episode, unspecified; M54.9 Dorsalgia, unspecified; G89.29 Other chronic pain; J44.9 Chronic obstructive pulmonary disease, unspecified; Z87.891 Personal history of nicotine dependence; Z95.5 Presence of coronary angioplasty implant and graft; Z88.8 Allergy status to other drugs, medicaments and biological substances

== ENCOUNTER 2019-02-04 20:56 | Emergency (ER) | payer MEDICAID ==
[~2019-02-04] VITALS: Ht 157.5 cm; Wt 111.5 kg
[~2019-02-04 20:56] MED LIST changes: +TRAMADOL 50 MG50 MG PO; +U-500 SUBQ
[2019-02-04] MEDS ORDERED: LEVAQUIN 500 M500 MG PO (22:22)
[2019-02-04 22:34] VITALS: BP 163/63
== END 2019-02-04 22:39 | disposition home or self-care (01) ==
LOC: M.ERS 20:56
DX: R51 Headache (principal); H92.03 Otalgia, bilateral; I11.0 Hypertensive heart disease with heart failure; I50.9 Heart failure, unspecified; F32.9 Major depressive disorder, single episode, unspecified; F41.9 Anxiety disorder, unspecified; E11.9 Type 2 diabetes mellitus without complications; E78.00 Pure hypercholesterolemia, unspecified; Z87.01 Personal history of pneumonia (recurrent); M54.9 Dorsalgia, unspecified; G89.29 Other chronic pain; Z95.5 Presence of coronary angioplasty implant and graft; H44.9 Unspecified disorder of globe; Z87.891 Personal history of nicotine dependence; Z88.8 Allergy status to other drugs, medicaments and biological substances

== ENCOUNTER 2019-05-09 22:49 | Inpatient (IN) | payer MEDICAID ==
[~2019-05-09] VITALS: Ht 157.5 cm; Wt 115.7 kg
--- NOTE | ~2019-05-09 | CON ---
[address] [address] CONSULTATION Name: KIKALEILA K Room: [address] IN .R.#: [id number] Admission: 05/10/19 Attend Phys: Con Dominguez MD Discharge: Date of : 58 Report #: [id number] THIS REPORT FOR: //name// CC: INDIRA physician/PCP Con Dominguez Primary Care Physican DICTATED BY: Ama Adame [facility] DATE OF SERVICE: 05/11/2019 Please note at the time of this dictation, the patient was seen and physically examined by myself. REASON FOR CONSULTATION: Hepatosplenomegaly. HISTORY OF PRESENT ILLNESS: This is a 59-year-old female who has a longstanding history of COPD and O2 dependent at home on 3 litres who has been complaining of increased shortness of breath over the last 2 weeks, prompting her to come in to the Emergency Room. She also was probably reporting some left leg pain and swelling that she states has been chronic. On further investigating, the patient states she had a colonoscopy a while years ago over at and she is due to have another one, which is upcoming, but she cannot recall the date. She states her bowels move daily, soft and formed with no melena or any bright red blood. She is not having any upper GI symptoms. No difficulty swallowing or acid reflux at the present time. She is complaining somewhat of some abdominal discomfort that is very generalized. ALLERGIES: No known drug allergies. MEDICATIONS: Lasix, Ventolin, Synthroid, DuoNeb, Singulair, ____, Zoloft, Norvasc, cardia, clonazepam, iron, Prinivil, omega-3 and magnesium oxide. PAST MEDICAL HISTORY: Congestive heart failure, COPD, O2 dependent 3 liters and then 4 liters with Trilogy at night, heart stents, depression, anxiety, fatty liver. Panic attacks, diabetes, hypertension, and high cholesterol. PAST SURGICAL HISTORY: Appendectomy, history of heart stents. FAMILY HISTORY: Significant for breast cancer on paternal side of the family. SOCIAL HISTORY: Past use of tobacco. She does smoke marijuana on occasions and denies any alcohol abuse. REVIEW OF SYSTEMS: Twelve-point review of systems is essentially negative except what is [place] [address] CONSULTATION Name: LEILA ANAND Room: [address] IN [facility]#: [id number] Admission: 05/10/19 Attend Phys: Con Dominguez MD Discharge: Date of : 58 Report #: [id number] PHYSICAL EXAMINATION: VITAL SIGNS: Temperature 36.4, pulse 81, respirations 19, blood pressure 130/54. HEART: Regular rate and rhythm. LUNGS: Clear, but diminished throughout. ABDOMEN: Rotund and taunt, positive bowel sounds in all 4 quadrants with some generalized tenderness noted to palpation. LABORATORY DATA: Hemoglobin is 11.4, white count is 14.4 and platelets 285. PT 9.9, INR is 1, GFR is 57, total bilirubin is 0.4, alkaline phosphatase 188, ALT 56, AST 29. CT showing hepatic steatosis with hepatosplenomegaly as well as confirmed on ultrasound same findings. Chest x-ray, questionable right lower lobe infiltrate. IMPRESSION: 1. Hepatosplenomegaly. 2. History of diagnosed fatty liver since 2008. 3. Family history, paternal side breast cancer. 4. Leukocytosis. 5. Poorly controlled diabetic. 6. Chronic obstructive pulmonary disease, O2 dependent. PLAN: 1. We will check labs. Acute hepatitis panel is pending, GGTP and AFP. 2. The patient is scheduled for an outpatient colonoscopy at in the near future. 3. No further recommendations to be made at this time regarding her hepatosplenomegaly. Thank you for allowing us to participate in this patient's care. Please do not hesitate to call with any questions in regard to this consult. By: [id number] Maldonado DO /sandy
[2019-05-09 23:02] VITALS: BP 157/82
[2019-05-09] MEDS ORDERED: CLONAZEPAM 1 MG1 M1 PO (23:10)
[2019-05-09] MEDS ORDERED: NORCO 7.5-3251 EACH PO (23:10)
[2019-05-09] MEDS ORDERED: CARTIA XT240 M1 PO (23:11)
[2019-05-09] MEDS ORDERED: NORVASC5 MG PO (23:11)
[2019-05-09] MEDS ORDERED: SINGULAIR 10 MG10 M1 PO (23:12)
[2019-05-09] MEDS ORDERED: BAYER CHEWABLE81 MG PO (23:12)
[2019-05-09] MEDS ORDERED: ZOLOFT50 MG PO (23:12)
[2019-05-09 23:58] LABS: ABSOLUTE BASOPHILS 0.1 thou/uL (0.0-0.2); ABSOLUTE EOSINOPHILS 0.5 thou/uL (0.0-0.7); ABSOLUTE LYMPHOCYTES 3.8 thou/uL (0.8-5.3); ABSOLUTE NEUTROPHILS 7.9 thou/uL (1.6-8.1); EOSINOPHILS 3.7 %; HEMATOCRIT 36.6 % (37.0-47.0); LYMPHOCYTES 28.8 %; MCH 27.7 pg (26.0-34.0); MCHC 32.7 g/dL (28.0-37.0); MCV 84.8 fL (80.0-100.0); MONOCYTES 7.7 %; MPV 7.6 fl. (7.2-11.1); NUCLEATED RBCS 0 /100WBC; PLATELET COUNT* 257 thou/uL (150-400); POLYS 58.8 %; RBC 4.32 mil/uL (4.20-5.00); RDW-CV 15.1 % (10.5-14.5); WBC 13.4 thou/uL (4.0-11.0)
[2019-05-10 00:06] LABS: ANION GAP 7 mmol/L (7-16); BUN 13 mg/dL (7-18); CALCIUM 9.6 mg/dL (8.5-10.1); CHLORIDE 94 mmol/L (98-107); CO2 32 mmol/L (21-32); CREATININE 0.8 mg/dL (0.6-1.3); GLUCOSE 350 mg/dL (70-99); SODIUM 133 mmol/L (136-145)
[2019-05-10 00:11] LABS: APTT 29.1 Seconds (25.0-31.3); PROTIME 9.9 Seconds (9.20-11.50)
[2019-05-10 00:17] LABS: ALBUMIN 3.2 g/dL (3.4-5.0); ALKALINE PHOSPHATASE 211 U/L (46-116); MAGNESIUM 1.6 mg/dL (1.8-2.4); NT-PRO BRAIN NAT PEPTIDE 39 pg/mL (<300); SGOT 45 U/L (15-37); SGPT 60 U/L (30-65); TOTAL BILIRUBIN 0.2 mg/dL (<0.1-1.0); TROPONIN-I LEVEL <0.06 ng/mL (<0.06)
[2019-05-10 00:46] LABS: BE 4.7 mmol/L (-2 to +3); PO2 71.9 mmHg (75.0-100.0); pH 7.391 (7.340-7.450)
[2019-05-10 00:47] LABS: PCO2 51.9 mmHg (35.0-45.0)
[2019-05-10 01:02] LABS: URINE BILIRUBIN NEGATIVE (Negative); URINE BLOOD NEGATIVE (Negative); URINE CLARITY CLEAR; URINE COLOR YELLOW; URINE GLUCOSE-RANDOM 3+ (Negative); URINE KETONES NEGATIVE (Negative); URINE LEUKOCYTES-REFLEX NEGATIVE (Negative); URINE NITRITE-REFLEX NEGATIVE (Negative); URINE PROTEIN 2+ (Negative); URINE UROBILINOGEN 0.2 E.U./dl (0.2-1.0)
[2019-05-10 01:09] LABS: CASTS None Seen /LPF (None Seen); CRYSTALS None Seen /LPF (None Seen); MUCUS 4-6 Moderate strn/LPF (None Seen); SQUAMOUS 4-10 Moderate /LPF (0-3); URINE RBC 0-2 Rare /HPF (0-2); URINE WBC-REFLEX 0-5 Rare /HPF (0-5)
[2019-05-10 03:10] VITALS: BP 145/71
[2019-05-10 03:15] VITALS: BP 172/69
--- NOTE | 2019-05-10 06:15 | NUR ---
PT ADMITTED TO ROOM 221. PT ORIENTENTED TO ROOM, CALL LIGHT SHOWN, FALL AGREEMENT GONE OVER, PT STATED UNDERSTANDING. IV PATENT. ADMISSION DOCUMENTED. TELE MONITOR READING ST. PT STATED THAT SHE DID NOT TAKE 05/09 DOSE OF LASIX DUE TO GOING TO GET A SONOGRAM AND NEVER TOOK THE DOSE WHEN SHE GOT HOME, AND HER BREATHING GOT BAD SO SHE CAME TO ER. WILL CONTINUE WITH PLAN OF CARE.
--- NOTE | 2019-05-10 07:28 | NUR ---
PTS EVELYN CRUZ STATED TO THIS NURSE THAT PATIENT HAS NOT TAKEN LASIXS IN 3-4 DAYS.
[2019-05-10] MEDS ORDERED: ALBUTEROL2.5 MG/3 M INH (07:35)
[2019-05-10] MEDS ORDERED: CALCIUM500 MG PO (07:41)
[2019-05-10] MEDS ORDERED: ZINC30 M1 PO (07:43)
[2019-05-10] MEDS ORDERED: VITAMIN D3400 UNIT PO (07:44)
[2019-05-10] MEDS ORDERED: GARLIC1 EACH PO (07:44)
[2019-05-10] MEDS ORDERED: HUMULIN R500 UNIT/1 SUBQ (07:45)
[2019-05-10 08:00] VITALS: BP 179/68
[2019-05-10 12:09] VITALS: BP 150/62
--- NOTE | 2019-05-10 14:03 | 2DMMODE ---
[place] [address] 2 D/M-MODE ECHOCARDIOGRAM Name: LEILA ANAND Room: [address] IN [facility]#: [id number] Admission: 05/10/19 Attend Phys: Con Dominguez, Discharge: Date of : 58 Date of Service: 05/10/19 1403 Report #: [id number] THIS REPORT FOR: //name// APPROVED REPORT Study performed: 05/10/2019 09:32:07 EXAM: Comprehensive 2D, Doppler, and color-flow Echocardiogram Patient Location: In-Patient Room #: 221 Status: routine BSA: 2.12 HR: 93 bpm BP: 179/68 mmHg Rhythm: NSR Other Information Study Quality: Good Indications COPD Dyspnea Cardiomegaly 2D Dimensions IVSd: 13.90 (7-11mm) LVOT Diam: 19.18 (18-24mm) LVDd: 47.37 mm PWd: 12.01 (7-11mm) Ascending Ao: 28.59 (22-36mm) LVDs: 26.64 (25-40mm) Aortic Root: 28.58 mm Volumes Left Atrial Volume (Systole) LA ESV Index: 30.50 mL/m2 Aortic Valve AoV Peak Eber.: 1.71 m/s AO Peak Gr.: 11.71 mmHg LVOT Max P.75 mmHg AO Mean Gr.: 6.69 mmHg LVOT Mean P.30 mmHg LVOT Max V: 1.71 m/s AO V2 VTI: 30.96 cm LVOT Mean V: 1.04 m/s SAMANTHA (VTI): 2.88 cm2 LVOT V1 VTI: 30.90 cm Mitral Valve E/A Ratio: 1.02 [place] [address] 2 D/M-MODE ECHOCARDIOGRAM Name: LEILA ANAND Room: [address] IN .R.#: [id number] Admission: 05/10/19 Attend Phys: Con Dominguez, Discharge: Date of : 58 Date of Service: 05/10/19 1403 Report #: [id number] MV Decel. Time: 223.77 ms MV E Max Eber.: 2.37 m/s MV PHT: 64.89 ms MVA (PHT): 3.39 cm2 TDI E/Lateral E': 23.70 E/Medial E': 23.70 Medial E' Eber.: 0.10 m/s Lateral E' Eber.: 0.10 m/s Pulmonary Valve PV Peak Eber.: 1.18 m/s PV Peak Gr.: 5.54 mmHg Left Ventricle The left ventricle is normal size. There is normal LV segmental wall motion. Mild concentric left ventricular hypertrophy. Left ventricular systolic function is normal. The left ventricular ejection fraction is within the normal range. LVEF is 65%. The left ventricular diastolic function is normal. Right Ventricle The right ventricle is normal size. The right ventricular systolic function is normal. Atria The left atrium size is normal. The right atrium size is normal. Aortic Valve Aortic valve leaflets are mildly thickened. No aortic regurgitation is present. There is no aortic valvular stenosis. Mitral Valve The mitral valve is normal in structure. Trace mitral regurgitation. No evidence of mitral valve stenosis. Tricuspid Valve The tricuspid valve is normal in structure. Trace tricuspid regurgitation. Unable to assess PA pressure. Pulmonic Valve The pulmonary valve is normal in structure. Trace pulmonic regurgitation. Great Vessels The aortic root is normal in size. IVC [place] [address] 2 D/M-MODE ECHOCARDIOGRAM Name: LEILA ANAND Room: [address] IN [facility]#: [id number] Admission: 05/10/19 Attend Phys: Con Dominguez, Discharge: Date of : 58 Date of Service: 05/10/19 1403 Report #: [id number] collapses >50% with inspiration. Pericardium There is no pericardial effusion. <Conclusion> The left ventricle is normal size. Mild concentric left ventricular hypertrophy. Left ventricular systolic function is normal. The left ventricular ejection fraction is within the normal range. LVEF is 65%. The right ventricle is normal size. The left atrium size is normal. Aortic valve leaflets are mildly thickened. No aortic regurgitation is present. There is no aortic valvular stenosis. The mitral valve is normal in structure. The tricuspid valve is normal in structure. IVC is normal in size and collapses >50% with inspiration. There is no pericardial effusion. There is normal LV segmental wall motion. <ELECTRONICALLY SIGNED> By: Adolph Lanza MD, FACC 05/10/19 1403 1403 1403 Adolph Lanza MD, FACC /INF
--- NOTE | 2019-05-10 14:43 | NUR ---
Pt is A&O. Resides at home with her dtr. Pt has inhome caregivers through her [place] Medicaid, through the agency [facility]. Pt states that her CG is in the home daily for 3+hours/day. CG assists with ADLs and completes the cooking, cleaning and driving. 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 Pt has a walker, cane and wc at home, states that she primarily uses the cane. Pt wears home o2 and has a bipap through [employer]. Pt inquired into if she can get a bedside commode at pa. EMEKA spoke with Karina from [facility], Karina believes that [facility] will cover a commode, prior auth will need to be obtained first. CM to speak with tomorrow regarding commode script and initiate prior auth if script obtained. Goal is home at pa.
[2019-05-10 16:24] VITALS: BP 162/71
--- NOTE | 2019-05-10 16:29 | EKG ---
[place] [address] ELECTROCARDIOGRAM REPORT Name: LEILA ANAND Room: [address] ADM IN M.R.#: [id number] Admission: 05/10/19 Attend Phys: Con Dominguez MD Discharge: Date of : 58 Report #: [id number] THIS REPORT FOR: //name// [facility] ED Test Date: 2019-05-10 Test Time: 00:19:07 Pat Name: LEILA ANAND Department: Room: [facility] Gender: F Glue Line Operator: [place] : 1960 Requested By: Melisa Ervin Order Number: [id number] MD: Romario Simeon Measurements Intervals [place] Rate: 98 P: 79 [place]: 147 QRS: -21 QRSD: 76 T: 62 QT: 343 QTc: 438 Interpretive Statements Sinus rhythm Borderline left axis deviation Compared to ECG 06/19/2018 12:25:49 Myocardial infarct finding no longer present Electronically Signed On 05-10-2019 16:29:13 CDT by Romario Simeon [email or web address] <ELECTRONICALLY SIGNED> By: Romario Simeon MD, [facility] 05/10/19 1629 0019 0019 Romario Simeon MD, [facility] /EPI
--- NOTE | 2019-05-10 17:40 | NUR ---
PATIENT RESTING IN BED. PATIENT IS UP STANDBY ASSIST FOR TRANSFERS. PATIENT USES BEDSIDE COMMODE. PATIENT HAS COMPLAINTS OF PAINTO RIGHT LEG, TREATED ADEQUATELY WITH HYDROCODONE. BLOOD SUGAR > 500 THIS EVENING, DR MOTTA NOTIFIED AND SLIDING SCALE CHANGED. PATIENT DENIES ANY NEEDS AT THIS TIME. CALL LIGHT WITHIN REACH. WILL CONTINUE TO MONITOR.
[2019-05-11] VITALS: BP 154/57
[2019-05-11 04:00] VITALS: BP 151/56
--- NOTE | 2019-05-11 07:07 | NUR ---
PATIENT SLEPT PART OF THE NIGHT. BLOOD SUGARS HAVE REMAINED HIGH THIS SHIFT. DR. SCOTT WAS NOTIFIED THREE TIMES ABOUT CRITICAL GLUCOSE AND ORDERS WERE RECIEVED. NEW IV REMAINS SALINE LOCKED. WILL CONTINUE TO MONITOR.
[2019-05-11 07:45] VITALS: BP 130/65
[2019-05-11 08:04] LABS: ABSOLUTE BASOPHILS 0.1 thou/uL (0.0-0.2); ABSOLUTE MONOCYTES 1.1 thou/uL (0.0-1.2); ABSOLUTE NEUTROPHILS 11.3 thou/uL (1.6-8.1); BASOPHILS 0.4 %; HEMATOCRIT 34.6 % (37.0-47.0); HEMOGLOBIN 11.4 gm/dL (12.0-15.0); LYMPHOCYTES 14.1 %; MCH 27.9 pg (26.0-34.0); MCHC 32.8 g/dL (28.0-37.0); MCV 85.2 fL (80.0-100.0); MONOCYTES 7.3 %; MPV 7.9 fl. (7.2-11.1); NUCLEATED RBCS 0 /100WBC; PLATELET COUNT* 285 thou/uL (150-400); POLYS 78.2 %; RBC 4.07 mil/uL (4.20-5.00); RDW-CV 15.2 % (10.5-14.5); WBC 14.4 thou/uL (4.0-11.0)
[2019-05-11 08:27] LABS: ALBUMIN 3.4 g/dL (3.4-5.0); CALCIUM 9.4 mg/dL (8.5-10.1); POTASSIUM 4.6 mmol/L (3.5-5.1); TOTAL BILIRUBIN 0.4 mg/dL (<0.1-1.0); TOTAL PROTEIN 8.3 g/dL (6.4-8.2)
[2019-05-11 12:00] VITALS: BP 155/74
--- NOTE | 2019-05-11 13:50 | NUR ---
HUMAN RESOURCES CONSULTANT INFORMED OF PATIENT'S POSSIBLE D/C TOMORROW AND SPOKE TO PHYSICIAN TO DISCUSS DISCHARGE PLANNING NEEDS AND PATIENT'S REQUEST FOR A COMMODE AT D/C. PHYSICIAN PROVIDED SCRIPT FOR DME. D/C CABLE MAKER SPOKE TO MEDICAID PRIOR AUTH LINE AND RECEIVED AUTH FOR COMMODE. ADRY REYNOSO INFORMED OF ORDER AND DELIVERED COMMODE TO PATIENT'S ROOM. CM WILL REMAIN AVAILABLE TO ASSIST AND FOLLOW NEEDED.
[2019-05-11 15:44] VITALS: BP 142/65
--- NOTE | 2019-05-11 15:48 | NUR ---
PT. STABLE THROUGH OUT SHIFT. UP TO CHAIR AND BEDSIDE COMMODE THROUGH OUT THE DAY WITH OUT ISSUE. PAIN WELL CONTROLLED WITH PO MED, HOWEVER PT. C/O "PINS/NEEDLES" TO HANDS AND FEET AT TIMES. DOWN TO HOME OXYGEN OF 3L AND TOLERATING WELL. HOURLY ROUNDING COMPLETED FOR PT. SAFETY.
[2019-05-12] VITALS: BP 182/77
[2019-05-12 05:00] VITALS: BP 142/53
[2019-05-12 05:10] LABS: HEPATITIS B SURFACE AG Negative (Negative)
[2019-05-12 05:13] LABS: HEMOGLOBIN 11.5 gm/dL (12.0-15.0); MCH 27.3 pg (26.0-34.0); MCHC 31.9 g/dL (28.0-37.0); MCV 85.7 fL (80.0-100.0); MPV 8.2 fl. (7.2-11.1); RBC 4.2 mil/uL (4.20-5.00); RDW-CV 15.6 % (10.5-14.5); WBC 14.5 thou/uL (4.0-11.0)
[2019-05-12 05:48] LABS: CALCIUM 9.6 mg/dL (8.5-10.1); CREATININE 0.9 mg/dL (0.6-1.3); MAGNESIUM 2.1 mg/dL (1.8-2.4); POTASSIUM 4.3 mmol/L (3.5-5.1)
--- NOTE | 2019-05-12 07:20 | NUR ---
CHANGE OF SHIFT, BEDSIDE REPORT GIVEN PATIENT SEEN AT BEDSIDE, IN BED ASLEEP ASSUMED PATIENT CARE
[2019-05-12 08:00] VITALS: BP 136/71
[2019-05-12 13:44] VITALS: BP 149/66
[2019-05-12 17:40] VITALS: BP 142/51
[2019-05-12 20:00] VITALS: BP 178/78
[2019-05-13 00:39] VITALS: BP 139/61
[2019-05-13 04:00] VITALS: BP 156/76
--- NOTE | 2019-05-13 06:05 | NUR ---
ASSUMED CARE OF PT AFTER REPORT AT 1930. PT A&OX4. VSS. PHYSICAL ASSESSMENT COMPLETED AND CHARTED. PT ON O2 AT 3L NC. PT TRACING SR/ST ON TELE. PT UPADLIB TO BS. PT COMPLAINED OF BACK & RIGHT LEG PAIN- PAIN MEDS GIVEN PER MAR. PT ABLE TO SLEEP WELL ON BED. CALL LIGHT WITHIN REACH.
--- NOTE | 2019-05-13 07:05 | NUR ---
CHANGE OF SHIFT, BEDIDE REPORT GIVEN PATIENT SEEN AT BEDSIDE, IN BED ASLEEP ASSUMED PATIENT CARE
[2019-05-13 08:00] VITALS: BP 152/67
[2019-05-13] MEDS ORDERED: LEVAQUIN 500 M500 M2 PO (11:24)
[2019-05-13] MEDS ORDERED: PREDNISONE 10 M10 MG PO (11:24)
[2019-05-13 12:15] VITALS: BP 152/67
[2019-05-13 12:38] VITALS: BP 139/53
--- NOTE | 2019-05-13 15:43 | NUR ---
PATIENT DISDHARGED TO HOME ALL DISCHARGE INFORMATION GIVEN, ACKNOWLEDGED, SIGNED COPIES GIVEN IV AMD HEART MONITOR REMOVED PERSONAL BELONGINGS RETURNED BSC DELIVERED YESTERDAY BY ANGELES HERNDON WITH ESCORTED VIA WC TO WAITING CAR
== END 2019-05-13 15:55 | disposition home or self-care (01) | DRG 189 ==
LOC: M.ERS 22:49 → M.2W 05-10 02:20 → M.TBA-ER 05-10 02:20 → M.2W 05-10 02:45
PROVIDERS: Internal Medicine; Personal Emergency Response Attendant; ADMIT Internal Medicine
PROC: 5A09357 Assistance with Respiratory Ventilation, Less than 24 Consecutive Hours, Continuous Positive Airway Pressure (ICD-10-PCS; principal; 2019-05-10)
DX: J96.21 Acute and chronic respiratory failure with hypoxia (principal); J44.1 Chronic obstructive pulmonary disease with (acute) exacerbation; I50.32 Chronic diastolic (congestive) heart failure; J96.22 Acute and chronic respiratory failure with hypercapnia; G89.29 Other chronic pain; F32.9 Major depressive disorder, single episode, unspecified; F41.9 Anxiety disorder, unspecified; I11.0 Hypertensive heart disease with heart failure; E78.00 Pure hypercholesterolemia, unspecified; R16.2 Hepatomegaly with splenomegaly, not elsewhere classified; D72.829 Elevated white blood cell count, unspecified; R14.0 Abdominal distension (gaseous); E11.65 Type 2 diabetes mellitus with hyperglycemia; T38.0X5A Adverse effect of glucocorticoids and synthetic analogues, initial encounter; K76.0 Fatty (change of) liver, not elsewhere classified; Z99.81 Dependence on supplemental oxygen; Z90.49 Acquired absence of other specified parts of digestive tract; Z95.5 Presence of coronary angioplasty implant and graft; Z87.01 Personal history of pneumonia (recurrent); Z79.899 Other long term (current) drug therapy; Z79.82 Long term (current) use of aspirin; Z87.891 Personal history of nicotine dependence; Z80.3 Family history of malignant neoplasm of breast; Z79.4 Long term (current) use of insulin; Z82.49 Family history of ischemic heart disease and other diseases of the circulatory system; Y92.89 Other specified places as the place of occurrence of the external cause

== ENCOUNTER 2019-06-17 22:21 | Inpatient (IN) | payer MEDICAID ==
[~2019-06-17] VITALS: Ht 157.5 cm; Wt 117.3 kg
[~2019-06-17 22:21] MED LIST changes: +ALBUTEROL2.5 MG/3 M INH; +BAYER CHEWABLE81 MG PO; +CALCIUM500 MG PO; +CARTIA XT240 M1 PO; +GARLIC1 EACH PO; +HUMULIN R500 UNIT/1 SUBQ; +NORVASC5 MG PO; +VITAMIN D3400 UNIT PO; +ZINC30 M1 PO; +ZOLOFT50 MG PO
[2019-06-17 22:30] VITALS: BP 170/77
[2019-06-17 23:15] LABS: ABSOLUTE BASOPHILS 0.1 thou/uL (0.0-0.2); ABSOLUTE EOSINOPHILS 0.4 thou/uL (0.0-0.7); ABSOLUTE LYMPHOCYTES 4.3 thou/uL (0.8-5.3); ABSOLUTE MONOCYTES 0.9 thou/uL (0.0-1.2); ABSOLUTE NEUTROPHILS 7.5 thou/uL (1.6-8.1); BASOPHILS 0.7 %; EOSINOPHILS 3.4 %; HEMATOCRIT 37.3 % (37.0-47.0); HEMOGLOBIN 12.3 gm/dL (12.0-15.0); LYMPHOCYTES 32.7 %; MCHC 32.9 g/dL (28.0-37.0); MCV 85.3 fL (80.0-100.0); MONOCYTES 6.6 %; MPV 7.9 fl. (7.2-11.1); NUCLEATED RBCS 0 /100WBC; PLATELET COUNT* 248 thou/uL (150-400); POLYS 56.6 %; RBC 4.38 mil/uL (4.20-5.00); RDW-CV 15.1 % (10.5-14.5); WBC 13.2 thou/uL (4.0-11.0)
[2019-06-17 23:21] LABS: ANION GAP 9 mmol/L (7-16); BUN 19 mg/dL (7-18); CALCIUM 9.5 mg/dL (8.5-10.1); CHLORIDE 93 mmol/L (98-107); CO2 30 mmol/L (21-32); CREATININE 0.9 mg/dL (0.6-1.3); GLUCOSE 309 mg/dL (70-99); POTASSIUM 4.1 mmol/L (3.5-5.1); SODIUM 132 mmol/L (136-145)
[2019-06-17 23:26] LABS: PROTIME 10.1 Seconds (9.20-11.50)
[2019-06-17 23:32] LABS: ALBUMIN 3.5 g/dL (3.4-5.0); ALKALINE PHOSPHATASE 211 U/L (46-116); NT-PRO BRAIN NAT PEPTIDE 42 pg/mL (<300); SGOT 33 U/L (15-37); SGPT 57 U/L (30-65); TOTAL BILIRUBIN 0.2 mg/dL (<0.1-1.0); TOTAL PROTEIN 8.3 g/dL (6.4-8.2); TROPONIN-I LEVEL <0.06 ng/mL (<0.06)
[2019-06-18] VITALS (7 sets, daily range): BP systolic 119–149; BP diastolic 42–73
[2019-06-18 00:08] LABS: URINE BILIRUBIN NEGATIVE (Negative); URINE BLOOD NEGATIVE (Negative); URINE CLARITY CLEAR; URINE COLOR YELLOW; URINE GLUCOSE-RANDOM 3+ (Negative); URINE KETONES NEGATIVE (Negative); URINE LEUKOCYTES-REFLEX NEGATIVE (Negative); URINE NITRITE-REFLEX NEGATIVE (Negative); URINE PROTEIN 1+ (Negative); URINE SPECIFIC GRAVITY 1.025 (1.005-1.030); URINE UROBILINOGEN 0.2 E.U./dl (0.2-1.0)
[2019-06-18] MEDS ORDERED: METFORMIN HCL500 MG PO (02:44)
[2019-06-18] MEDS ORDERED: DILTIAZEM 24HR240 M1 PO (02:46)
[2019-06-18] MEDS ORDERED: ALLOPURINOL 10100 M1 PO ×2 (02:54→03:16)
[2019-06-18] MEDS ORDERED: LIPITOR40 MG PO (02:58)
[2019-06-18] MEDS ORDERED: FUROSEMIDE 40 M40 M1 PO (03:17)
[2019-06-18] MEDS ORDERED: GABAPENTIN 100100 MG PO (03:19)
[2019-06-18] MEDS ORDERED: LASIX 40 MG TAB40 M2 PO (03:23)
[2019-06-18] MEDS ORDERED: HUMULIN R500 UNIT/1 SUBQ (03:30)
[2019-06-18] MEDS ORDERED: SERTRALINE HCL100 MG PO (03:31)
[2019-06-18] MEDS ORDERED: CARDIZEM CD240 MG PO (03:31)
[2019-06-18] MEDS ORDERED: LISINOPRIL40 MG PO (03:32)
--- NOTE | 2019-06-18 08:44 | EKG ---
[place] [address] ELECTROCARDIOGRAM REPORT Name: LEILA ANAND Room: [place] [address] ADM IN .R.#: [id number] Admission: 06/18/19 Attend Phys: Geo Adams MD Discharge: Date of : 58 Report #: [id number] THIS REPORT FOR: //name// [facility] ED Test Date: 2019-06-17 Test Time: 22:56:39 Pat Name: LEILA ANAND Department: Room: [facility] Gender: F Supervisor Dials: : 1960 Requested By: Trista Avila Order Number: [id number] MD: Clayton Montejo Measurements Intervals [place] Rate: 93 P: 79 MT: 151 QRS: -23 QRSD: 97 T: 72 QT: 327 QTc: 407 Interpretive Statements Sinus rhythm Borderline left axis deviation Compared to ECG 05/10/2019 00:19:07 No significant changes Electronically Signed On 06-18-2019 8:44:24 CDT by Clayton Montejo [email or web address] <ELECTRONICALLY SIGNED> By: Clayton Montejo MD, [facility] [phone] Clayton Montejo MD, [facility] /EPI
--- NOTE | 2019-06-18 15:58 | CON ---
[address] [address] CONSULTATION Name: KKIALEILA Amanda Room: [address] IN .R.#: [id number] Admission: 06/18/19 Attend Phys: Geo Adams MD Discharge: Date of : 58 Report #: [id number] THIS REPORT FOR: //name// CC: BALTA Adams DATE OF SERVICE: 06/18/2019 CARDIOLOGY CONSULTATION HISTORY OF PRESENT ILLNESS: The patient is a 59-year-old single white female, who I was asked to see in the hospital after she complained of being short of breath. The patient has an extensive past medical history. She previously smoked 3 packs of cigarettes per day. She also is overweight, standing 5 feet 2 and weighing 230 pounds. She is not very active at this time and mainly is in a wheelchair. She has chronic dyspnea and is on chronic oxygen. She uses BiPAP at night. She uses bronchodilators. She has a history of coronary artery disease and apparently had a coronary stent placed at [place] in 2008. She has been followed by Dr. Garduno since that time. She has not had a stress test for years. She was actually here at [facility] a month ago with pneumonia. The patient actually had an echocardiogram done last month that showed left ventricular hypertrophy, ejection fraction of 60%, aortic sclerosis. The patient does have occasional sharp pain in her chest, it is nonexertional. There is no radiation of the pain. Recently, she has been coughing and more short of breath. She noticed her heart rate increased. Friends brought her to the Emergency Room last night and she was admitted. PAST MEDICAL HISTORY: She has had previous appendectomy, hypertension, diabetes, hyperlipidemia. MEDICATIONS: At home consist of insulin. She is also on albuterol inhaler, allopurinol, amlodipine, aspirin, Lipitor, clonazepam, diltiazem, Lasix, Synthroid. ALLERGIES: She has no known drug allergies. FAMILY HISTORY: Mother and father had heart disease. SOCIAL HISTORY: She is , lives with daughter in [place]. Quit smoking years ago. She is not working at this time. No alcohol abuse. REVIEW OF SYSTEMS: She has had no history of stroke, kidney disease or cancer. She saw a psychiatrist in the past for panic attacks. No chronic skin condition. PHYSICAL EXAMINATION: [place] [address] CONSULTATION Name: LEILA ANAND Room: [address]#: [id number] Admission: 06/18/19 Attend Phys: Geo Adams MD Discharge: Date of : 58 Report #: [id number] GENERAL: Revealed an overweight middle-aged female lying in bed. She appeared in no distress. VITAL SIGNS: Showed a blood pressure 150/60, pulse is 80, she is afebrile. HEENT: She is anicteric. Conjunctivae are pink. Mucous membranes appear moist. NECK: Neck veins are difficult to assess due to obesity. CHEST: Clear to auscultation. CARDIOVASCULAR: Regular rate and rhythm. ABDOMEN: Soft. EXTREMITIES: Had no pitting edema, no Homans' sign. Dorsalis pedis pulse 2+ bilaterally. SKIN: Cool and dry. NEUROLOGIC: Nonfocal. LABORATORY DATA: Her ECG on admission last night showed a sinus rhythm, no significant ST or T-wave change. Her lab work; sodium 132, creatinine 0.9, glucose 309. Liver function studies were normal. Albumin 3.5. Troponin 0.06. In 2017, cholesterol was 170, triglyceride 500, HDL 42, LDL could be calculated. TSH last year was 3.5. Her white blood cell count 13.2, hemoglobin 12.3. Her chest x-ray last night showed cardiomegaly, clear lung villanueva and no infiltrate. She had a CT scan of the chest last night using a PE protocol that showed no pulmonary embolus, no aortic dissection, no infiltrate, extensive coronary artery calcifications. IMPRESSION AND RECOMMENDATIONS: 1. Shortness of breath, suspect secondary to chronic obstructive pulmonary disease. Recommend no cardiac evaluation. 2. Coronary artery disease. Previous stent. No recent angina. I would not recommend stress testing. I would continue aspirin a day. 3. Obesity. 4. Hypertension. The patient has been on calcium yumiko. 5. Diabetes. 6. Sleep apnea. <ELECTRONICALLY SIGNED> By: Clayton Montejo MD, [facility] 06/18/19 1558 0814 [id number] Montejo MD, FACC /nt
[2019-06-19] VITALS: BP 145/62
[2019-06-19 04:00] VITALS: BP 120/43
[2019-06-19 07:15] VITALS: BP 159/52
[2019-06-19 08:43] LABS: HEMATOCRIT 37.5 % (37.0-47.0); HEMOGLOBIN 11.9 gm/dL (12.0-15.0); MCH 27.8 pg (26.0-34.0); MCHC 31.6 g/dL (28.0-37.0); MCV 87.7 fL (80.0-100.0); MPV 8.1 fl. (7.2-11.1); NUCLEATED RBCS 0 /100WBC; PLATELET COUNT* 281 thou/uL (150-400); RBC 4.27 mil/uL (4.20-5.00); RDW-CV 15.6 % (10.5-14.5); WBC 15.8 thou/uL (4.0-11.0)
[2019-06-19 08:59] LABS: ALBUMIN 3.6 g/dL (3.4-5.0); CALCIUM 9.6 mg/dL (8.5-10.1); CREATININE 1.2 mg/dL (0.6-1.3); POTASSIUM 4.9 mmol/L (3.5-5.1); TOTAL BILIRUBIN 0.4 mg/dL (<0.1-1.0); TOTAL PROTEIN 8.4 g/dL (6.4-8.2)
[2019-06-19 09:41] LABS: ABSOLUTE LYMPHOCYTES 1.7 thou/uL (0.8-5.3); ABSOLUTE MONOCYTES 0.2 thou/uL (0.0-1.2); ABSOLUTE NEUTROPHILS 13.9 thou/uL (1.6-8.1); PLATELET ESTIMATE ADEQUATE
[2019-06-19 11:30] VITALS: BP 131/45
--- NOTE | 2019-06-19 12:04 | CON ---
[address] [address] CONSULTATION Name: LEILA ANAND Room: [address] IN .R.#: [id number] Admission: 06/18/19 Attend Phys: Geo Adams MD Discharge: Date of : 58 Report #: [id number] THIS REPORT FOR: //name// CC: BALTA Adams DATE OF SERVICE: 06/18/2019 REASON FOR CONSULTATION: Shortness of breath. HISTORY OF PRESENT ILLNESS: This is a 59-year-old female patient with history of COPD, chronic respiratory failure, on oxygen 2-3 liter in addition to obstructive sleep apnea, on BiPAP at night. She is compliant with her BiPAP and actually she brought her BiPAP to the hospital. She is known to have history of COPD and she smoked for almost 18 years. Apparently, she used to be a heavy smoker. Presented to the hospital with increasing shortness of breath of 2-3 weeks' duration. She reports that at baseline, she has some shortness of breath, but the usual distance that she used to walk inside her home, now becoming more and more difficult to ambulate from her room to the bathroom, although she is not clear if she has any wheezes. She reported some increasing cough with occasional white to clear sputum production, which is not a baseline for her. She denied any fever, sore throat, sick contact or runny nose. She denied any chest pain. She was evaluated by Cardiology and it was felt that she has no indication for further cardiac workup. She tells me that she feels a little bit better compared to the time of hospitalization. Reviewing her record indicated that she received some steroids in the ER. PAST MEDICAL HISTORY: Chronic respiratory failure, on home oxygen; obstructive sleep apnea, on BiPAP; hypertension, hyperlipidemia, diabetes. PAST SURGICAL HISTORY: Appendectomy. HOME MEDICATIONS: Reviewed including insulin, Lipitor, aspirin, amlodipine, allopurinol, Lasix, Synthroid, bronchodilator therapy. ALLERGIES: No known drug allergies. FAMILY HISTORY: Positive for heart disease. SOCIAL HISTORY: Ex-smoker. Lives with her daughter. Quit smoking a few years ago, but she had an 18-year history of smoking. Does not drink alcohol excessively, does not abuse drugs. REVIEW OF SYSTEMS: All review of systems she reported she has left lower extremity edema, more than the right. Denied PNDs or orthopnea or wheezes. Denied any URI symptoms or GI symptoms. All systems reviewed with the patient, [place] [address] CONSULTATION Name: LEILA ANAND Room: [address] IN [facility]#: [id number] Admission: 06/18/19 Attend Phys: Geo Adams MD Discharge: Date of : 58 Report #: [id number] other than as mentioned above. PHYSICAL EXAMINATION: VITAL SIGNS: During my visit, she was on 2.5 liters oxygen with saturation of more than 90%. HEAD: Normocephalic, atraumatic. EYES: Pupils reactive to light. ORAL CAVITY: Moist mucous membrane. Mallampati of 2-3. NECK: Full range of movement. Trachea central. Thick neck. ENT: External ear, looks normal. Nasal cavity patent passages. CHEST: Diminished air movement bilaterally, prolonged expiratory phase. I did not hear definite wheezes, no rhonchi, or crackles. HEART: S1, S2, no murmur. ABDOMEN: Benign, soft, lax, nontender, positive bowel sounds. No masses felt, obese. No rebound, no rigidity. EXTREMITIES: Lower extremity, trace edema bilaterally. I could not appreciate a difference, some scratch oswald in the lower extremities. PSYCHIATRIC: Mood and affect slightly anxious. NEUROLOGIC: No deficit. SKIN: Normal for age and race other than the rash mentioned above. LYMPHATICS: No palpable lymph nodes. LABORATORY DATA: Her white blood count 13.2, hemoglobin 12.3 and platelets of 248. Her INR is 1 with a D-dimer not elevated. Her creatinine is 0.9, potassium 4.1. Sodium 132. BNP not elevated. She had a chest x-ray, did not show acute pathology. A CT of the chest, no evidence of PE or definite consolidation. IMPRESSION: 1. Avmfo-wy-gmapjis respiratory failure. 2. Dyspnea. 3. Obstructive sleep apnea. 4. History of smoking. The patient's clinical picture is suggestive for COPD exacerbation. I am going to treat her for that with IV steroids for now as, scheduled nebulization treatment. We will add Brovana also as a long-acting beta agonist. Continue to use the BiPAP during sleep and as needed and continue to use her oxygen. Keep oxygen saturation more than 90%. I did encourage her to stay active and spend some time out of bed. She was evaluated by Cardiology and it was felt no cardiac issue at this point. [address] [place] [address] CONSULTATION Name: LEILA ANAND Room: [address] IN M.R.#: [id number] Admission: 06/18/19 Attend Phys: Geo Adams MD Discharge: Date of : 58 Report #: [id number] Thank you for the consult. We will follow along with you. Discussed with the patient. <ELECTRONICALLY SIGNED> By: Lei Brooks MD 06/19/19 1204 0957 1033Dbenja Hoff MD /nt
[2019-06-19 16:00] VITALS: BP 133/45
[2019-06-19 20:00] VITALS: BP 172/72
[2019-06-20] VITALS: BP 136/55
[2019-06-20 04:00] VITALS: BP 138/56
[2019-06-20 04:56] LABS: ABSOLUTE LYMPHOCYTES 3.6 thou/uL (0.8-5.3); ABSOLUTE MONOCYTES 1.7 thou/uL (0.0-1.2); ABSOLUTE NEUTROPHILS 13.3 thou/uL (1.6-8.1); BASOPHILS 0.2 %; EOSINOPHILS 0.1 %; HEMATOCRIT 36.4 % (37.0-47.0); HEMOGLOBIN 11.6 gm/dL (12.0-15.0); LYMPHOCYTES 19.3 %; MCH 27.4 pg (26.0-34.0); MCV 85.8 fL (80.0-100.0); MONOCYTES 9.3 %; MPV 7.6 fl. (7.2-11.1); NUCLEATED RBCS 0 /100WBC; PLATELET COUNT* 322 thou/uL (150-400); POLYS 71.1 %; RBC 4.24 mil/uL (4.20-5.00); RDW-CV 15.6 % (10.5-14.5); WBC 18.7 thou/uL (4.0-11.0)
[2019-06-20 04:59] LABS: CALCIUM 9.4 mg/dL (8.5-10.1); POTASSIUM 4.7 mmol/L (3.5-5.1)
[2019-06-20 05:10] LABS: GLYCOHEMOGLOBIN (HGB A1C) 10.7 % (4.8-5.6)
[2019-06-20 08:00] VITALS: BP 156/75
[2019-06-20 12:48] VITALS: BP 149/75
[2019-06-20 15:59] VITALS: BP 123/50
[2019-06-20 20:00] VITALS: BP 109/61
[2019-06-21 04:34] LABS: ABSOLUTE EOSINOPHILS 0.1 thou/uL (0.0-0.7); ABSOLUTE LYMPHOCYTES 6.4 thou/uL (0.8-5.3); ABSOLUTE MONOCYTES 1.6 thou/uL (0.0-1.2); ABSOLUTE NEUTROPHILS 9.7 thou/uL (1.6-8.1); BASOPHILS 0.2 %; EOSINOPHILS 0.4 %; HEMATOCRIT 37.8 % (37.0-47.0); HEMOGLOBIN 11.8 gm/dL (12.0-15.0); LYMPHOCYTES 35.8 %; MCH 26.9 pg (26.0-34.0); MCHC 31.1 g/dL (28.0-37.0); MCV 86.4 fL (80.0-100.0); MONOCYTES 9.2 %; MPV 7.9 fl. (7.2-11.1); NUCLEATED RBCS 0 /100WBC; PLATELET COUNT* 289 thou/uL (150-400); POLYS 54.4 %; RBC 4.37 mil/uL (4.20-5.00); RDW-CV 15.6 % (10.5-14.5); WBC 17.8 thou/uL (4.0-11.0)
[2019-06-21 04:45] LABS: CALCIUM 9.3 mg/dL (8.5-10.1); CREATININE 0.9 mg/dL (0.6-1.3); POTASSIUM 4.7 mmol/L (3.5-5.1)
[2019-06-21 08:00] VITALS: BP 165/77
[2019-06-21 12:00] VITALS: BP 132/60
[2019-06-21 14:25] VITALS: BP 132/60
[2019-06-21 15:17] VITALS: BP 136/61
[2019-06-21] MEDS ORDERED: CEFDINIR300 MG PO (15:18)
[2019-06-21] MEDS ORDERED: PREDNISONE 10 M10 MG PO (15:19)
[2019-06-21] MEDS ORDERED: BROVANA15 MCG/2 M INH (15:21)
[2019-06-21] MEDS ORDERED: NEBULIZER MISCELL (15:26)
[2019-06-21] MEDS ORDERED: IPRAT-ALBUT 0.5-3 ML INH (15:31)
== END 2019-06-21 16:28 | disposition home or self-care (01) | DRG 189 ==
LOC: M.ERS 22:21 → M.TBA-ER 06-18 01:09 → M.2W 06-18 01:09
PROVIDERS: Emergency Medicine; Internal Medicine; ADMIT Family Medicine
PROC: 5A09357 Assistance with Respiratory Ventilation, Less than 24 Consecutive Hours, Continuous Positive Airway Pressure (ICD-10-PCS; principal; 2019-06-19)
DX: J96.20 Acute and chronic respiratory failure, unspecified whether with hypoxia or hypercapnia (principal); J44.1 Chronic obstructive pulmonary disease with (acute) exacerbation; E87.1 Hypo-osmolality and hyponatremia; I50.32 Chronic diastolic (congestive) heart failure; G47.33 Obstructive sleep apnea (adult) (pediatric); E66.01 Morbid (severe) obesity due to excess calories; K76.0 Fatty (change of) liver, not elsewhere classified; E11.65 Type 2 diabetes mellitus with hyperglycemia; Z79.82 Long term (current) use of aspirin; Z79.899 Other long term (current) drug therapy; Z95.5 Presence of coronary angioplasty implant and graft; Z87.891 Personal history of nicotine dependence; Z82.49 Family history of ischemic heart disease and other diseases of the circulatory system

== ENCOUNTER 2019-08-05 19:26 | Inpatient (IN) | payer MEDICAID ==
[~2019-08-05] VITALS: Ht 167.6 cm; Wt 122.4 kg
[~2019-08-05 19:26] MED LIST changes: +ALLOPURINOL 10100 M1 PO; +BROVANA15 MCG/2 M INH; +CEFDINIR300 MG PO; +DILTIAZEM 24HR240 M1 PO; +IPRAT-ALBUT 0.5-3 ML INH; +LASIX 40 MG TAB40 M2 PO; +LISINOPRIL40 MG PO; +NEBULIZER MISCELL; +SERTRALINE HCL100 MG PO
[2019-08-05 19:33] VITALS: BP 158/64
[2019-08-05] MEDS ORDERED: TORSEMIDE20 MG PO (19:43)
[2019-08-05 19:58] LABS: ABSOLUTE BASOPHILS 0.2 thou/uL (0.0-0.2); ABSOLUTE EOSINOPHILS 0.4 thou/uL (0.0-0.7); ABSOLUTE LYMPHOCYTES 3.6 thou/uL (0.8-5.3); ABSOLUTE MONOCYTES 0.8 thou/uL (0.0-1.2); ABSOLUTE NEUTROPHILS 7.4 thou/uL (1.6-8.1); BASOPHILS 1.3 %; EOSINOPHILS 3.4 %; HEMATOCRIT 36.4 % (37.0-47.0); HEMOGLOBIN 11.9 gm/dL (12.0-15.0); LYMPHOCYTES 29.3 %; MCH 27.7 pg (26.0-34.0); MCHC 32.8 g/dL (28.0-37.0); MCV 84.6 fL (80.0-100.0); MONOCYTES 6.6 %; MPV 7.5 fl. (7.2-11.1); NUCLEATED RBCS 0 /100WBC; PLATELET COUNT* 251 thou/uL (150-400); POLYS 59.4 %; RDW-CV 15.3 % (10.5-14.5); WBC 12.4 thou/uL (4.0-11.0)
[2019-08-05 20:07] LABS: CREATININE 0.7 mg/dL (0.6-1.3); POTASSIUM 4.2 mmol/L (3.5-5.1)
[2019-08-05 20:12] LABS: ALBUMIN 3.2 g/dL (3.4-5.0); TOTAL BILIRUBIN 0.3 mg/dL (<0.1-1.0); TOTAL PROTEIN 7.8 g/dL (6.4-8.2)
[2019-08-05 20:18] LABS: URINE BILIRUBIN NEGATIVE (Negative); URINE BLOOD NEGATIVE (Negative); URINE CLARITY CLEAR; URINE COLOR YELLOW; URINE GLUCOSE-RANDOM 3+ (Negative); URINE KETONES NEGATIVE (Negative); URINE LEUKOCYTES-REFLEX NEGATIVE (Negative); URINE NITRITE-REFLEX NEGATIVE (Negative); URINE PROTEIN TRACE (Negative); URINE UROBILINOGEN 0.2 E.U./dl (0.2-1.0)
[2019-08-05 23:04] VITALS: BP 126/85
[2019-08-06 04:00] VITALS: BP 123/60
[2019-08-06 08:00] VITALS: BP 115/53
--- NOTE | 2019-08-06 09:50 | NUR ---
Pt known to this CM from previous hospital stays. Pt is A&O. Resides at home with her dtr. Pt has MATHIEU caregivers in the home through [employer], that assist with cooking, cleaning and personal cares. CGs are in the home 7 days/week for 3hrs/day. Pt uses either a walker, cane or wc for mobility. Pt has home o2 and a bipap through [employer], Pt wears 3L during the day and 4L at night. Hx of [facility]. No hx of SNF. Goal is home at ga, no needs anticipated.
[2019-08-06 11:30] VITALS: BP 222/107
[2019-08-06 16:17] VITALS: BP 134/56
--- NOTE | 2019-08-06 16:34 | 2DMMODE ---
[place] [address] 2 D/M-MODE ECHOCARDIOGRAM Name: LEILA ANAND Room: [address] IN [facility]#: [id number] Admission: 08/05/19 Attend Phys: Brian dewitt Sa Discharge: Date of : 58 Date of Service: 08/06/19 1633 Report #: [id number] THIS REPORT FOR: //name// APPROVED REPORT Study performed: 08/06/2019 15:03:13 EXAM: Limited 2D Echocardiogram Patient Location: In-Patient Room #: 224 Status: routine BSA: 2.26 HR: 92 bpm BP: 222/107 mmHg Rhythm: NSR Other Information Study Quality: Good Indications Congestive Heart Failure Dyspnea Evaluate for E/A and e' Mitral Valve E/A Ratio: 1.03 MV Decel. Time: 222.06 ms MV E Max Eber.: 1.26 m/s MV PHT: 64.40 ms MVA (PHT): 3.42 cm2 TDI E/Lateral E': 15.75 E/Medial E': 12.60 Medial E' Eber.: 0.10 m/s Lateral E' Eber.: 0.08 m/s Left Ventricle The left ventricle is normal size. There is normal LV segmental wall motion. Mild concentric left ventricular hypertrophy. The left ventricular systolic function is normal. The left ventricular ejection fraction is within the normal range. LVEF is 65%. The left ventricular diastolic function is normal. Right Ventricle The right ventricle is normal size. The right ventricular [place] [address] 2 D/M-MODE ECHOCARDIOGRAM Name: LEILA ANAND Room: [address] IN [facility].#: [id number] Admission: 08/05/19 Attend Phys: Brian dewitt Sa Discharge: Date of : 58 Date of Service: 08/06/19 163 Report #: [id number] Atria The left atrium size is normal. The right atrium size is normal. Aortic Valve Aortic valve leaflets are mildly thickened. Mitral Valve The mitral valve is normal in structure. Tricuspid Valve The tricuspid valve is normal in structure. Pulmonic Valve Pulmonic valve is not well visualized. Great Vessels The aortic root is normal in size. Pericardium There is no pericardial effusion. <Conclusion> Mild concentric left ventricular hypertrophy. LVEF is 65%. Aortic valve leaflets are mildly thickened. <ELECTRONICALLY SIGNED> By: Clayton Montejo MD, [facility] 08/06/19 1633 163 1633 Clayton Montejo MD, FACC /INF
--- NOTE | 2019-08-06 16:46 | EKG ---
[place] [address] ELECTROCARDIOGRAM REPORT Name: LEILA ANAND Room: [address] ADM IN M.R.#: [id number] Admission: 08/05/19 Attend Phys: Brian Hernandez Discharge: Date of : 58 Report #: [id number] THIS REPORT FOR: //name// [facility] ED Test Date: 2019-08-05 Test Time: 20:02:55 Pat Name: LEILA ANAND Department: Room: [facility] Gender: F Lean Specialist: [place] : 1960 Requested By: Lluvia Caraballo Order Number: [id number] MD: Clayton Montejo Measurements Intervals [place] Rate: 92 P: 66 MD: 161 QRS: -28 QRSD: 82 T: 92 QT: 358 QTc: 443 Interpretive Statements Sinus rhythm Borderline left axis deviation Abnormal R-wave progression, late transition Compared to ECG 06/17/2019 22:56:39 No significant changes Electronically Signed On 08-06-2019 16:46:36 CDT by Clayton Montejo [email or web address] <ELECTRONICALLY SIGNED> By: Clayton Montejo MD, FACC 08/06/19 1646 01 01 Clayton Montejo MD, FACC /EPI
[2019-08-06 20:00] VITALS: BP 127/48
[2019-08-07 00:48] VITALS: BP 133/42
[2019-08-07 04:17] VITALS: BP 133/38
--- NOTE | 2019-08-07 04:39 | NUR ---
ASSUMED PT CARE AT [facility]OX 1930. PT IS AWAKE AND ORIENTED X4. VSS ON 3L OF O2/NC. PT WEARS BIPAP AT HS. NO DESATURATIONS NOTED. METAL PLATER IN PLACE TRACING SR. ASSESSMENT DONE AND CHARTED. BLOOD SUGAR REMAINED ELEVATED. DR WILKERSON INFORMED, ADDITIONAL 30 UNITS OF LANTUS GIVEN PER DEC ORDERED. BLOOD SUGAR MONITORED Q 6HOURS. PT C/O BACK PAIN PARTIALLY RELIEVED BY PAIN MEDS GIVEN PER DEC. CALL LIGHT WITHIN REACH. HOURLY ROUNDING DONE CHARTED. FALL PRECAUTIONS IN PLACE. WILL CONTINUE TO MONITOR PT.
[2019-08-07 08:00] VITALS: BP 142/55
[2019-08-07 12:27] VITALS: BP 131/47
[2019-08-07 16:00] VITALS: BP 137/55
--- NOTE | 2019-08-07 16:38 | NUR ---
[facility] APPROX 0730. REASSESSMENT COMPLETED CHARTED. MEDICATIONS GIVEN CHARTED. PT IS SOA WITH EXERTION. DISCUSSED MEDICATIONS WITH PT, MEDICATIONS DISCUSSED WITH PHYSICAN, ORDERS RECIEVED. PT UP TO BEDSIDE CAMODE WITH STAND BY ASSIST. PTS IV INFILTRATED, IV REPLACED AND MEDICATIONS RESUMED. PERSONAL ITEMS AND CALL LIGHT WITHIN REACH, PT CALLS FOR NEEDS. ROUNDING FOR NEEDS AND SAFTEY.
[2019-08-07 20:00] VITALS: BP 155/78
[2019-08-08 00:39] VITALS: BP 135/56
[2019-08-08 04:00] VITALS: BP 139/52
--- NOTE | 2019-08-08 05:10 | NUR ---
ASSUMED PT CARE AT APPROX 1930. PT IS AWAKE AND ORIENTED X4. VSS ON 4L OF O2/NC. NO DESATURTATIONS NOTED. TANK OPERATOR IN PLACE TRACING SR/ST. PT C/O BACK AND KNEE PAIN RELIEVED BY PAIN MEDS GIVEN PER DEC. PT IS ABLE TO SLEEP MOST OF THE NIGHT. CALL LIGHT WITHIN REACH, HOURLY ROUNDING DONE FOR PT SAFETY. FALL PRECAUTIONS IN PLACE.
[2019-08-08 08:00] VITALS: BP 146/65
[2019-08-08 11:33] LABS: ABSOLUTE BASOPHILS 0.1 thou/uL (0.0-0.2); ABSOLUTE EOSINOPHILS 0.4 thou/uL (0.0-0.7); ABSOLUTE LYMPHOCYTES 3.8 thou/uL (0.8-5.3); ABSOLUTE MONOCYTES 0.8 thou/uL (0.0-1.2); ABSOLUTE NEUTROPHILS 8.2 thou/uL (1.6-8.1); EOSINOPHILS 2.7 %; HEMATOCRIT 36.4 % (37.0-47.0); HEMOGLOBIN 11.9 gm/dL (12.0-15.0); LYMPHOCYTES 28.3 %; MCH 27.5 pg (26.0-34.0); MCHC 32.7 g/dL (28.0-37.0); MCV 84.2 fL (80.0-100.0); MONOCYTES 6.3 %; MPV 7.3 fl. (7.2-11.1); NUCLEATED RBCS 0 /100WBC; PLATELET COUNT* 248 thou/uL (150-400); POLYS 61.7 %; RBC 4.33 mil/uL (4.20-5.00); RDW-CV 15.6 % (10.5-14.5); WBC 13.3 thou/uL (4.0-11.0)
[2019-08-08 11:45] LABS: ALBUMIN 3.4 g/dL (3.4-5.0); CALCIUM 9.6 mg/dL (8.5-10.1); POTASSIUM 4.2 mmol/L (3.5-5.1); TOTAL BILIRUBIN 0.3 mg/dL (<0.1-1.0)
[2019-08-08 11:47] VITALS: BP 155/77
--- NOTE | 2019-08-08 13:55 | NUR ---
Met with pt to review heart failure medication. Discussion focused primarily on torsemide and lisinopril. We reviewed rationale for therapy and importance of complying with prescribed regimen. We reviewed possible side effects and potential management strategies. Pt expressed understanding of issues discussed. Left medication information sheet with pt. Provided pharmacy contact information for any further questions or issues. Thank you.
[2019-08-08 17:01] VITALS: BP 129/40
--- NOTE | 2019-08-08 19:42 | NUR ---
PT VSS, SR ON TELE, PT SBA BUT PIVOTS TO COMMODE BY SELF. HOURLY ROUNDING PERFORMED, POSSESSIONS AND CALL LIGHT WITHIN REACH.
[2019-08-08 20:00] VITALS: BP 135/48
[2019-08-09] VITALS: BP 142/52
[2019-08-09 04:00] VITALS: BP 140/70
--- NOTE | 2019-08-09 04:31 | NUR ---
ASSUMED PT CARE AT APPROX 1930. PT IS AWAKE AND ORIENTED X4. VSS ON 3L OF O2/NC. PT IS ON BIPAP AT HS. HUMAN RESOURCE STATISTICIAN IN PLACE TRACING SR. PT C/O BACK AND LEG PAIN RELEIVED BY PAIN MEDS GIVEN PER DEC. ASSESSMENT DONE AND CHARTED. CALL LIGHT WITHIN REACH. HOURLY RPUNDING DONE FOR PT SAFETY.
[2019-08-09 08:00] VITALS: BP 140/60
[2019-08-09 09:09] LABS: HEMATOCRIT 35.6 % (37.0-47.0); HEMOGLOBIN 11.5 gm/dL (12.0-15.0); MCH 27.3 pg (26.0-34.0); MCHC 32.4 g/dL (28.0-37.0); MCV 84.2 fL (80.0-100.0); MPV 7.9 fl. (7.2-11.1); RBC 4.22 mil/uL (4.20-5.00); RDW-CV 15.7 % (10.5-14.5); WBC 11.3 thou/uL (4.0-11.0)
[2019-08-09 09:38] LABS: ALBUMIN 3.1 g/dL (3.4-5.0); CREATININE 0.8 mg/dL (0.6-1.3); POTASSIUM 3.9 mmol/L (3.5-5.1); TOTAL BILIRUBIN 0.3 mg/dL (<0.1-1.0); TOTAL PROTEIN 7.4 g/dL (6.4-8.2)
[2019-08-09 11:46] VITALS: BP 140/69
--- NOTE | 2019-08-09 14:00 | NUR ---
Pt discharging to home today. HH orders recieved and set up with [facility]. Faxed orders and referral
[2019-08-09] MEDS ORDERED: LEVAQUIN 500 M500 M3 PO (14:15)
--- NOTE | 2019-08-09 15:19 | NUR ---
Pt discharging to home today, HH set up through [facility]. Faxed referral
--- NOTE | 2019-08-09 15:58 | NUR ---
Pt's PCP is Dr Antionette Estrella at [facility] [phone]
--- NOTE | 2019-08-09 20:53 | NUR ---
PT VSS, NSR ON TELE. PT HIGH FALL RISK, POSSESSIONS AND CALL LIGHT WITHIN REACH. HOURLY ROUNDING PERFORMED. PT PIVOTS TO BEDSIDE COMMODE TO VOID. RECEIVED DISCHARGE ORDERS, REVIEWED DISCHARGE PACKET WITH PATIENT. GAVE PT HARD SCRIPTS AND CARENOTES. PIVS REMOVED WITHOUT COMPLICATION. TELE MONITOR REMOVED. PT TAKEN BY WHEELCHAIR TO FRONT DOOR AND PICKED UP BY FRIEND.
== END 2019-08-09 16:10 | disposition home health service (06) | DRG 177 ==
LOC: M.ERS 19:26 → M.2W 22:02 → M.TBA-ER 22:02 → M.2W 23:10
PROVIDERS: Internal Medicine; Nurse Practitioner Family; ADMIT Family Medicine
PROC: 5A09357 Assistance with Respiratory Ventilation, Less than 24 Consecutive Hours, Continuous Positive Airway Pressure (ICD-10-PCS; principal; 2019-08-05)
PROC: 5A09357 Assistance with Respiratory Ventilation, Less than 24 Consecutive Hours, Continuous Positive Airway Pressure (ICD-10-PCS; 2019-08-06)
PROC: 5A09357 Assistance with Respiratory Ventilation, Less than 24 Consecutive Hours, Continuous Positive Airway Pressure (ICD-10-PCS; 2019-08-08)
DX: J15.6 Pneumonia due to other Gram-negative bacteria (principal); I50.31 Acute diastolic (congestive) heart failure; E87.0 Hyperosmolality and hypernatremia; B17.9 Acute viral hepatitis, unspecified; Z68.41 Body mass index [BMI] 40.0-44.9, adult; J44.9 Chronic obstructive pulmonary disease, unspecified; I11.0 Hypertensive heart disease with heart failure; E78.00 Pure hypercholesterolemia, unspecified; E66.9 Obesity, unspecified; E11.65 Type 2 diabetes mellitus with hyperglycemia; Z95.5 Presence of coronary angioplasty implant and graft; Z87.891 Personal history of nicotine dependence; Z82.49 Family history of ischemic heart disease and other diseases of the circulatory system; Z79.899 Other long term (current) drug therapy

== ENCOUNTER 2019-09-16 17:29 | Emergency (ER) | payer MEDICAID ==
[~2019-09-16] VITALS: Ht 157.5 cm; Wt 118.5 kg
[~2019-09-16 17:29] MED LIST changes: +LEVAQUIN 500 M500 M3 PO; +TORSEMIDE20 MG PO
[2019-09-16] MEDS ORDERED: PREDNISONE 20 M20 M1 PO (18:03)
[2019-09-16] MEDS ORDERED: ZPAK PO (18:03)
[2019-09-16] MEDS ORDERED: PROMETH-CODEIN 65 ML PO (18:47)
[2019-09-16 18:53] VITALS: BP 139/70
== END 2019-09-16 18:54 | disposition home or self-care (01) ==
LOC: M.ERS 17:29
DX: J44.1 Chronic obstructive pulmonary disease with (acute) exacerbation (principal); I11.0 Hypertensive heart disease with heart failure; I50.9 Heart failure, unspecified; J44.9 Chronic obstructive pulmonary disease, unspecified; E11.9 Type 2 diabetes mellitus without complications; Z95.5 Presence of coronary angioplasty implant and graft; E78.00 Pure hypercholesterolemia, unspecified; Z90.49 Acquired absence of other specified parts of digestive tract; Z98.51 Tubal ligation status; Z87.891 Personal history of nicotine dependence; Z79.4 Long term (current) use of insulin

== ENCOUNTER 2019-12-06 18:45 | Inpatient (IN) | payer MEDICAID ==
[~2019-12-06] VITALS: Ht 157.5 cm; Wt 112.5 kg
[~2019-12-06 18:45] MED LIST changes: +PREDNISONE 20 M20 M1 PO; +PROMETH-CODEIN 65 ML PO
[2019-12-06 18:49] VITALS: BP 210/78
[2019-12-06] MEDS ORDERED: ABILIFY 5 MG TAB5 MG PO (19:24)
[2019-12-06] MEDS ORDERED: CAPSAICIN TOP (19:29)
[2019-12-06] MEDS ORDERED: ALLOPURINOL 10100 M3 PO (19:39)
[2019-12-06] MEDS ORDERED: NEURONTIN100 MG PO (19:42)
[2019-12-06 19:43] LABS: INFLUENZA A ANTIGEN Negative (Negative); INFLUENZA B ANTIGEN Negative (Negative)
[2019-12-06] MEDS ORDERED: FISH OIL 1,0001 EAC9 PO (19:43)
[2019-12-06] MEDS ORDERED: ARNUITY ELLIPT50 MCG NARES (19:44)
[2019-12-06] MEDS ORDERED: DIAZEPAM 5 MG5 M1 PO (19:45)
[2019-12-06] MEDS ORDERED: GONAK EA. EYE (19:48)
[2019-12-06] MEDS ORDERED: EYE EA. EYE (19:48)
[2019-12-06] MEDS ORDERED: COMBIVENT INH (19:49)
[2019-12-06 19:52] LABS: ABSOLUTE BASOPHILS 0.1 thou/uL (0.0-0.2); ABSOLUTE EOSINOPHILS 0.4 thou/uL (0.0-0.7); ABSOLUTE LYMPHOCYTES 3.2 thou/uL (0.8-5.3); ABSOLUTE MONOCYTES 0.8 thou/uL (0.0-1.2); BASOPHILS 0.8 %; EOSINOPHILS 3.3 %; HEMATOCRIT 38.3 % (37.0-47.0); HEMOGLOBIN 12.5 gm/dL (12.0-15.0); LYMPHOCYTES 25.7 %; MCHC 32.7 g/dL (28.0-37.0); MCV 82.5 fL (80.0-100.0); MONOCYTES 6.1 %; MPV 7.8 fl. (7.2-11.1); NUCLEATED RBCS 0 /100WBC; PLATELET COUNT* 240 thou/uL (150-400); POLYS 64.1 %; RBC 4.64 mil/uL (4.20-5.00); RDW-CV 16.7 % (10.5-14.5); WBC 12.5 thou/uL (4.0-11.0)
[2019-12-06] MEDS ORDERED: ALBUTEROL2.5 MG/0.1 INH (19:53)
[2019-12-06] MEDS ORDERED: IPRAT-ALBUT 0.5-3 ML (19:54)
[2019-12-06] MEDS ORDERED: KETOCONAZOLE15 GM TOP (19:56)
[2019-12-06] MEDS ORDERED: NIZORAL120 ML TOP (19:57)
[2019-12-06] MEDS ORDERED: MAGNESIUM400 MG PO (19:58)
[2019-12-06] MEDS ORDERED: METFORMIN HCL500 M3 PO (19:59)
[2019-12-06] MEDS ORDERED: SINGULAIR 10 MG10 M1 PO (19:59)
[2019-12-06] MEDS ORDERED: TRAMADOL 50 MG50 MG PO (20:00)
[2019-12-06] MEDS ORDERED: ZOLOFT100 MG PO (20:00)
[2019-12-06] MEDS ORDERED: DEMADEX20 MG PO (20:00)
[2019-12-06] MEDS ORDERED: ZEGERID 20 MG1 EACH PO (20:01)
[2019-12-06 20:04] LABS: CALCIUM 8.7 mg/dL (8.5-10.1); CREATININE 0.8 mg/dL (0.6-1.3); POTASSIUM 4.2 mmol/L (3.5-5.1)
[2019-12-06 20:09] LABS: ALBUMIN 3.3 g/dL (3.4-5.0); TOTAL BILIRUBIN 0.4 mg/dL (<0.1-1.0); TOTAL PROTEIN 8.4 g/dL (6.4-8.2)
[2019-12-06 22:45] VITALS: BP 142/86
[2019-12-06 22:50] VITALS: BP 118/67
--- NOTE | 2019-12-07 05:51 | NUR ---
PATIENT ARRIVED WITH FRIEND TO ROOM 311. PT C/O BREATHING PROBLEMS X1 WEEK. PT ON O2 @ 3 LITERS PER NASAL CANNULA. PT USES CANE AT HOME AND W/CHAIR WHEN OUT. PT ORIENTED TO ROOM/POLICIES AND VERBALIZES UNDERSTANDING. FREQUENTLY USED ITEMS AND CALL LIGHT WITHIN REACH. SIDERAILS UPX2. WILL CONTINUE TO MONITOR.
[2019-12-07 07:20] VITALS: BP 143/86
--- NOTE | 2019-12-07 09:45 | EKG ---
[place] [address] ELECTROCARDIOGRAM REPORT Name: LEILA ANAND Room: [address] ADM IN M.R.#: [id number] Admission: 12/06/19 Attend Phys: Casper Andrew Discharge: Date of : 58 Date of Service: 12/06/191999 Report #: [id number] THIS REPORT FOR: //name// [facility] ED Test Date: 2019-12-06 Test Time: 20:00:36 Pat Name: LEILA ANAND Department: Room: [facility] Gender: F Protective Signal Installer Helper: [place] : 1960 Requested By: Erica William Order Number: [id number] MD: Adolph Lanza Measurements Intervals [place] Rate: 94 P: 78 [place]: 154 QRS: -28 QRSD: 79 T: 76 QT: 357 QTc: 447 Interpretive Statements Sinus rhythm Borderline left axis deviation Abnormal R-wave progression, late transition Compared to ECG 08/05/2019 20:02:55 No significant changes Electronically Signed On 12-07-2019 9:44:15 TAX ASSESSOR by Adolph Lanza [email or web address] <ELECTRONICALLY SIGNED> By: Adolph Lanza MD, FAC 12/07/19 0944 99 99 Adolph Lanza MD, [facility] /EPI
--- NOTE | 2019-12-07 14:26 | NUR ---
Pt lives at home with dtr. Pt has caregivers through [employer]. Pt has needed DME. Pt has hx of oxygen and supplies through [employer]. Pt has hx with HH agencies, most recently [facility].
[2019-12-07 14:36] LABS: HEMATOCRIT 38.8 % (37.0-47.0); HEMOGLOBIN 12.4 gm/dL (12.0-15.0); MCH 26.9 pg (26.0-34.0); MCHC 32.1 g/dL (28.0-37.0); MCV 83.8 fL (80.0-100.0); MPV 8.4 fl. (7.2-11.1); NUCLEATED RBCS 0 /100WBC; PLATELET COUNT* 287 thou/uL (150-400); RBC 4.63 mil/uL (4.20-5.00); RDW-CV 16.8 % (10.5-14.5); WBC 15.8 thou/uL (4.0-11.0)
[2019-12-07 14:49] LABS: ALBUMIN 3.4 g/dL (3.4-5.0); CREATININE 1.1 mg/dL (0.6-1.3); POTASSIUM 4.1 mmol/L (3.5-5.1); TOTAL BILIRUBIN 0.4 mg/dL (<0.1-1.0); TOTAL PROTEIN 8.8 g/dL (6.4-8.2)
[2019-12-07 15:13] LABS: ABSOLUTE LYMPHOCYTES 2.2 thou/uL (0.8-5.3); ABSOLUTE MONOCYTES 0.6 thou/uL (0.0-1.2); PLATELET ESTIMATE ADEQUATE
[2019-12-07 16:00] VITALS: BP 150/70
--- NOTE | 2019-12-07 16:33 | NUR ---
ASSESSMENT COMPLETE. PT ALERT AND ORIENTED X4. PT GIVEN PRN NORCO ONE TIME FOR BACK PAIN. PT IS ACCU CHECK ACHS. TOLERATING MEALS, DENIES N/V. PT IS ON 3L PER NC WITH ADEQUATE SATS, CPAP AT HS. IV STARTED WITH INFUSION IN RIGHT FA, SL. PT IS UP ONE ASSIST TO BSC. SEE ASSESSMENT AND VITALS FOR OTHER DETAILS. CALL LIGHT WITHIN REACH, WILL CONTINUE PLAN OF CARE
[2019-12-07 17:23] LABS: URINE BILIRUBIN NEGATIVE (Negative); URINE BLOOD NEGATIVE (Negative); URINE CLARITY CLEAR; URINE COLOR YELLOW; URINE GLUCOSE-RANDOM 3+ (Negative); URINE KETONES NEGATIVE (Negative); URINE LEUKOCYTES NEGATIVE (Negative); URINE NITRITE NEGATIVE (Negative); URINE PROTEIN NEGATIVE (Negative); URINE UROBILINOGEN 0.2 E.U./dl (0.2-1.0)
[2019-12-08 04:25] LABS: ABSOLUTE BASOPHILS 0.1 thou/uL (0.0-0.2); ABSOLUTE EOSINOPHILS 0.2 thou/uL (0.0-0.7); ABSOLUTE LYMPHOCYTES 3.8 thou/uL (0.8-5.3); ABSOLUTE MONOCYTES 1.1 thou/uL (0.0-1.2); ABSOLUTE NEUTROPHILS 9.3 thou/uL (1.6-8.1); BASOPHILS 0.4 %; EOSINOPHILS 1.1 %; HEMATOCRIT 35.9 % (37.0-47.0); HEMOGLOBIN 11.7 gm/dL (12.0-15.0); LYMPHOCYTES 26.6 %; MCH 26.6 pg (26.0-34.0); MCHC 32.5 g/dL (28.0-37.0); MONOCYTES 7.7 %; MPV 7.6 fl. (7.2-11.1); NUCLEATED RBCS 0 /100WBC; PLATELET COUNT* 237 thou/uL (150-400); POLYS 64.2 %; RBC 4.38 mil/uL (4.20-5.00); RDW-CV 16.6 % (10.5-14.5); WBC 14.4 thou/uL (4.0-11.0)
--- NOTE | 2019-12-08 04:36 | NUR ---
PATIENT ALERT/ORIENTED X4. PT UP TO BSC WITH ASSIST OF FRIEND OR STAFF MEMBER. PT VOIDS YELLOW URINE. PT DENIES PAIN/NAUSEA. PT ON O2 @ 3LITERS PER NASAL CANNULA AND HOME CPAP ON 4L AT NIGHT. PT WITH ONE EPISODE OF ANXIETY DUE TO ISSUES AT HOME. PT IS SALINE LOCKED. PT SAID SHE IS READY TO GO HOME TODAY. FREQUENTLY USED ITEMS AND CALL LIGHT WITHIN REACH. FRIEND AT BEDSIDE DURING THIS SHIFT. WILL CONTINUE TO MONITOR.
[2019-12-08 04:48] LABS: CREATININE 0.7 mg/dL (0.6-1.3); MAGNESIUM 1.6 mg/dL (1.8-2.4); PHOSPHORUS* 4.8 mg/dL (2.5-4.9); POTASSIUM 3.3 mmol/L (3.5-5.1)
[2019-12-08 07:55] VITALS: BP 151/62
[2019-12-08] MEDS ORDERED: MUCINEX600 MG PO (11:30)
[2019-12-08] MEDS ORDERED: MEDROL DOSPAK21 TA1 PO (11:30)
[2019-12-08] MEDS ORDERED: CEFDINIR300 MG PO (11:30)
[2019-12-08] MEDS ORDERED: PROBIOTIC & AC1 EACH PO (11:30)
[2019-12-08 12:25] VITALS: BP 151/62
[2019-12-08 15:59] VITALS: BP 151/62
[2019-12-08 16:00] VITALS: BP 148/70
--- NOTE | 2019-12-08 19:20 | NUR ---
PATIENT AWAKE IN BED WITH FAMILY AT BEDSIDE. PATIENT UP TO BEDSIDE COMMODE THROUGHOUT SHIFT. ALL SAFETY MEASURES MAINTAINED. PATIENT EDUCATED ON BLOOD GLUCOSE CONTROL THROUGHOUT SHIFT. ALL BLOOD GLUCOSE LEVELS ABOVE [address] OROPEZA. NEW ORDERS RECEIVED AND VERIFIED WITH READ BACK. DR. OROPEZA INSTRUCTED TO NOT DISCHARGE PATIENT TODAY.
[2019-12-08 19:30] VITALS: BP 162/62
--- NOTE | 2019-12-09 05:03 | NUR ---
PT ALERT AND ORIENTED. VSS ON 33L NC. BIPAP ON 4L @ HS. MEDS GIVEN PER EMAR. PAIN MEDS GIVEN THIS SHIFT. PT SLEPT WELL THIS SHIFT. RT ORDERED. CALL LIGHT WITHIN REACH. PT CALLS OUT APROPRIATELY. WILL CONTINUE TO MONITOR.
[2019-12-09 08:05] VITALS: BP 134/59
[2019-12-09 13:39] VITALS: BP 151/62
[2019-12-09] MEDS ORDERED: CLONAZEPAM 1 MG1 M1 PO (14:26)
[2019-12-09] MEDS ORDERED: CARTIA XT240 M1 PO (14:27)
--- NOTE | 2019-12-09 19:42 | NUR ---
PATIENT DISCHARGED AT 1700. PATIENT DENIED ANY QUESTIONS OR CONCERNS PRIOR TO DISCHARGE. PATIENT REPORTS PAIN IMPROVED WITH MEDICATION. ALL SAFETY MEASURES MAINTAINED. DISCHARGE PAPERWORK REMOVED WITH PATIENT. IV REMOVED. CONFRIMED PATEINT OK TO DISCHARGE WITH DR. OROPEZA.
[2019-12-09 19:43] VITALS: BP 151/62
== END 2019-12-09 17:00 | disposition home or self-care (01) | DRG 871 ==
LOC: M.ERS 18:45 → M.TBA-ER 20:48 → M.3W 20:48
PROVIDERS: Emergency Medicine; Family Medicine; Physician Assistant; ADMIT Internal Medicine
DX: A41.9 Sepsis, unspecified organism (principal); J18.9 Pneumonia, unspecified organism; E44.1 Mild protein-calorie malnutrition; Z68.42 Body mass index [BMI] 45.0-49.9, adult; J44.0 Chronic obstructive pulmonary disease with (acute) lower respiratory infection; I50.9 Heart failure, unspecified; E78.00 Pure hypercholesterolemia, unspecified; E11.65 Type 2 diabetes mellitus with hyperglycemia; F32.9 Major depressive disorder, single episode, unspecified; I11.0 Hypertensive heart disease with heart failure; F41.9 Anxiety disorder, unspecified; Z79.899 Other long term (current) drug therapy; Z79.82 Long term (current) use of aspirin; Z95.5 Presence of coronary angioplasty implant and graft; Z90.49 Acquired absence of other specified parts of digestive tract; Z87.891 Personal history of nicotine dependence; Z99.81 Dependence on supplemental oxygen; Z82.49 Family history of ischemic heart disease and other diseases of the circulatory system

== ENCOUNTER 2019-12-19 21:59 | Emergency (ER) | payer MEDICAID ==
[~2019-12-19] VITALS: Ht 157.5 cm; Wt 112.5 kg
[~2019-12-19 21:59] MED LIST changes: +ABILIFY 5 MG TAB5 MG PO; +ALLOPURINOL 10100 M3 PO; +ARNUITY ELLIPT50 MCG NARES; +CAPSAICIN TOP; +COMBIVENT INH; +DEMADEX20 MG PO; +DIAZEPAM 5 MG5 M1 PO; +EYE EA. EYE; +FISH OIL 1,0001 EAC9 PO; +GONAK EA. EYE; +IPRAT-ALBUT 0.5-3 ML; +MAGNESIUM400 MG PO; +MEDROL DOSPAK21 TA1 PO; +METFORMIN HCL500 M3 PO; +NEURONTIN100 MG PO; +NIZORAL120 ML TOP; +PROBIOTIC & AC1 EACH PO; +ZEGERID 20 MG1 EACH PO; +ZOLOFT100 MG PO
[2019-12-19] MEDS ORDERED: VICODIN HP 10-1 EAC1 PO (22:33)
[2019-12-19 23:22] LABS: INFLUENZA A ANTIGEN Negative (Negative); INFLUENZA B ANTIGEN Negative (Negative)
[2019-12-20] MEDS ORDERED: ALBUTEROL2.5 MG/3 M INH (01:03)
[2019-12-20] MEDS ORDERED: PREDNISONE50 MG PO (01:03)
[2019-12-20] MEDS ORDERED: HYDROCODON-ACE1 EAC8 PO (01:03)
[2019-12-20] MEDS ORDERED: LEVAQUIN 500 M500 MG PO (01:13)
[2019-12-20 01:16] VITALS: BP 120/54
== END 2019-12-20 01:16 | disposition home or self-care (01) ==
LOC: M.ERS 21:59
PROVIDERS: Emergency Medicine
DX: J06.9 Acute upper respiratory infection, unspecified (principal); I11.0 Hypertensive heart disease with heart failure; I50.9 Heart failure, unspecified; J44.9 Chronic obstructive pulmonary disease, unspecified; E11.9 Type 2 diabetes mellitus without complications; Z87.891 Personal history of nicotine dependence; E78.00 Pure hypercholesterolemia, unspecified; Z90.49 Acquired absence of other specified parts of digestive tract; Z98.51 Tubal ligation status; Z95.5 Presence of coronary angioplasty implant and graft

== ENCOUNTER 2020-05-07 20:28 | Inpatient (IN) | payer MEDICAID ==
[~2020-05-07] VITALS: Ht 157.5 cm; Wt 114.8 kg
--- NOTE | ~2020-05-07 | CON ---
[address] [address] CONSULTATION Name: KIKALEILA Room: [address] IN .R.#: [id number] Admission: 05/07/20 Attend Phys: Pipe Fenton MD Discharge: Date of : 58 Report #: [id number] THIS REPORT FOR: //name// cc: [facility] physician unknown [facility] physician unknown ~ THIS REPORT FOR: //name// CC: Pipe Fenton [facility] DATE OF SERVICE: 05/14/2020 REQUESTING PHYSICIAN: Jennifer Lomeli MD INDICATION FOR CONSULTATION: Jzigh-hd-teioljn hypercarbic respiratory failure/possible pulmonary fibrosis. HISTORY OF PRESENT ILLNESS: This 60-year-old female, past medical history includes a history of chronic hypercarbic respiratory failure. The patient is on a BiPAP while asleep as well as oxygen long-term. The patient also does have a history of morbid obesity with a body mass index elevated to 53. She has an extensive history of smoking as well. At this time, the patient was initially admitted on 05/07/2020. The patient presented with acute shortness of breath. The patient has a venous blood gas performed initially, which shows significant hypercarbia with a venous pCO2 of 71. Note that the patient's baseline arterial pCO2 is in the range of 51-58. The patient initially was also coughing up significant amounts of white sputum. Her initial chest x-ray shows significant fluid overload as well as pulmonary infiltrates. Fluid overload appears to be the predominant finding. The patient only received 1 dose of Solu-Medrol. She has had significant hyperglycemia, which may have been a limiting factor in administration of corticosteroids. She since then has been on nebulized bronchodilators. She has also been treated with broad-spectrum antibiotics, initially received 2 doses of ceftriaxone and subsequently has been on cefdinir. Has also been treated with azithromycin. The patient in addition has been diuresed as well. At this point, the patient is feeling significantly better. Her chest x-rays have also improved significantly. There is a CT chest, which was performed today. This does show bibasilar scarring as well as some pulmonary infiltrates. The patient says that at this time, she feels a lot better than when she initially got admitted to the hospital. She had swelling of lower extremities. This has improved significantly. The patient is not currently afebrile. She does not have a sore throat or runny nose either. She has some joint pains, which are at baseline. She has disturbed sleep at night as well as sleepiness during the day, which are worse on admission and now returning towards her baseline, but these are still persisting. She did have polydipsia as well as polyuria initially as well. [place] [address] CONSULTATION Name: KIKALEILA Room: [address] IN ..#: [id number] Admission: 05/07/20 Attend Phys: Pipe Fenton MD Discharge: Date of : 58 Report #: [id number] times she has had panic attacks and did appear to be anxious and had tears in her eyes at the time of examination. REVIEW OF SYSTEMS: I asked her 12 questions for review of systems. Review of systems is negative except as mentioned above. PAST MEDICAL HISTORY: Chronic hypoxemic and hypercarbic respiratory failure with a baseline pCO2 in the range of 51-58. The patient is on a BiPAP, lacerating reported at 18/8 with oxygen 3 liters in line as well as during the day long-term, obstructive sleep apnea, obesity hypoventilation syndrome, COPD, diabetes, hypertension, coronary artery disease, status post cardiac stents. She has a normal left ventricular ejection fraction without significant elevation in right heart pressures on the last echo. She has had diastolic dysfunction, fatty liver disease, hyperlipidemia, status post appendectomy, status post tubal ligation, morbid obesity. The patient's last available echocardiogram is from last year and shows a left ventricular ejection fraction 65%. The tricuspid valve is reported to be normal. SOCIAL HISTORY: There is an extensive history of smoking. The patient says that she was a heavy smoker and smoked 3 packs a day for about 2 decades, discontinuing in 2008. No known history of heavy alcohol use or illegal drug use. CURRENT MEDICATIONS: List in [employer] reviewed. HOME MEDICATIONS: List also in [employer] reviewed. Note that she uses albuterol and DuoNeb nebulizer p.r.n. 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 She says that her insurance is Medicaid. ALLERGIES: No known drug allergies. FAMILY HISTORY: There is no pertinent family history. PHYSICAL EXAMINATION: GENERAL: She is alert, awake and oriented, does not appear to be in any distress. She did appear to become anxious quickly, but was friendly. VITAL SIGNS: Has a pulse of 75 and blood pressure of 112/36. She is on 4 liters nasal cannula. She is oxygenating in the mid 90s. Respiratory rate is mildly elevated to 20-22. Body mass index elevated to 53. HEENT: Head is normocephalic and atraumatic. Pupils are equal and reactive. There is no throat erythema, narrow airway. Mallampati 3. NECK: Does not show raised JVP, asymmetry, mass or lymph nodes. CHEST: Symmetrical expansion on inspection and palpation. On auscultation, breath sounds are bilaterally equal, decreased, expirations prolonged. HEART: Regular. There is no murmur. ABDOMEN: Soft and nontender. [address] [address] CONSULTATION Name: KIKALEILA Room: [address] IN [facility]#: [id number] Admission: 05/07/20 Attend Phys: Pipe Fenton MD Discharge: Date of : 58 Report #: [id number] EXTREMITIES: Lower extremities still show 1+ edema, no calf tenderness. SKIN: Dry and intact. NEUROLOGICAL: Moves all extremities bilaterally equally and spontaneously with no focal deficit identified. LABORATORY DATA: The patient's CT chest is reviewed. There is some bibasilar scarring/fibrotic changes noted. There are small infiltrates. I do not see any pulmonary vascular congestion, but there is significant infiltrates as well as pulmonary vascular congestion seen on x-rays performed earlier this admission. There is significant improvement in this. The patient's venous blood gas is as discussed above. The patient's CBC as well as chemistries and coagulation studies also in [facility], these are reviewed. The patient's D-dimer is not elevated. The patient's current creatinine is 1.5. Her baseline creatinine is 1.0. ASSESSMENT AND PLAN: 1. Lsdix-kv-tlytfkz hypoxemic and hypercarbic respiratory failure. 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 Continue oxygen long-term. We will do venous blood gas peripheral and see where we stand. We will plan to see her in the office and then adjust accordingly. If the patient still has a significant pCO2 retention more significant than previously her baseline. If the pH is still low, then I will consider switching her over to a Trelegy prior to her discharge. 2. Obstructive sleep apnea with obesity hypoventilation syndrome. See discussion as above. The patient says she is interested in having evaluation for weight loss surgery. She has been previously told that she may not be a candidate due to history of anxiety and panic attacks. Will request our weight loss surgeon to see her and see if she will be a candidate at some point in the future. Obviously, we will need stabilization prior to consideration of any such surgery. 3. Chronic obstructive pulmonary disease. I held off on giving her systemic steroids considering significant hyperglycemia. We will, however, start her on budesonide by nebulizer. She is also on Singulair as well as DuoNeb. There are several options for long-term therapy. This will depend on her insurance. If paid for by her insurance, then Trelegy inhaler once a day in addition to Singulair could be one option. 4. Pulmonary infiltrates. These look significantly better. Discontinue Zithromax. We will consider discontinuing cefdinir in the next couple of days as well. 5. Jkqcl-pz-xozslfg diastolic congestive heart failure. Would continue diuresis; however, suggest cutting back considering the patient's creatinine is beginning to rise. Her baseline creatinine is 1.0. 6. Bibasilar pulmonary scarring/possible early pulmonary fibrosis. I would defer further evaluation for now. We will address the above issues first. These findings do not look significantly different compared with her previous CT in 2019. Due to her history of smoking, the patient may qualify for a low-dose [facility] [address] [place] [address] CONSULTATION Name: LEILA ANAND Room: [facility]- ADM IN M.R.#: [id number] Admission: 05/07/20 Attend Phys: Pipe Fenton MD Discharge: Date of : 58 Report #: [id number] chest for screening for lung cancer in 1 year and we can evaluate this as an outpatient. 7. Hypertension. The patient's blood pressure was markedly elevated initially up to 204 systolic; however, now is in the lower side. If remains on the lower side, I suggest considering starting back on therapy, note that the patient is on both Norvasc as well as diltiazem. A reduction in the dose of Norvasc could be a possible consideration. Would defer to the primary service and Cardiology. 8. Deep vein thrombosis prophylaxis. The patient's D-dimer is not elevated unless contraindicated. We will start Lovenox in the prophylactic dose until she is ambulating well. Agree with plans to transfer her to rehabilitation eventually. 9. Positive blood culture. This is likely a contaminant. Follow repeat blood cultures. By: [id number] Brown MD /nt
[~2020-05-07 20:28] MED LIST changes: +HYDROCODON-ACE1 EAC8 PO; +ROXIFOL-D TA500 UNIT PO; +VICODIN HP 10-1 EAC1 PO; -VITAMIN D3400 UNIT PO
[2020-05-07 20:35] VITALS: BP 204/84
[2020-05-07 21:11] LABS: ABSOLUTE BASOPHILS 0.1 thou/uL (0.0-0.2); ABSOLUTE EOSINOPHILS 0.5 thou/uL (0.0-0.7); ABSOLUTE MONOCYTES 0.7 thou/uL (0.0-1.2); ABSOLUTE NEUTROPHILS 10.7 thou/uL (1.6-8.1); BASOPHILS 0.6 %; HEMATOCRIT 37.8 % (37.0-47.0); HEMOGLOBIN 12.3 gm/dL (12.0-15.0); LYMPHOCYTES 29.3 %; MCH 27.9 pg (26.0-34.0); MCHC 32.5 g/dL (28.0-37.0); MCV 85.9 fL (80.0-100.0); MONOCYTES 3.9 %; MPV 7.4 fl. (7.2-11.1); NUCLEATED RBCS 0 /100WBC; PLATELET COUNT* 279 thou/uL (150-400); POLYS 63.2 %; WBC 16.9 thou/uL (4.0-11.0)
[2020-05-07 21:17] LABS: APTT 26.9 Seconds (25.0-31.3); CREATININE 0.9 mg/dL (0.6-1.3); POTASSIUM 4.2 mmol/L (3.5-5.1); PROTIME 10.4 Seconds (9.20-11.50)
[2020-05-07 21:29] LABS: ALBUMIN 3.4 g/dL (3.4-5.0); TOTAL BILIRUBIN 0.4 mg/dL (<0.1-1.0); TOTAL PROTEIN 8.5 g/dL (6.4-8.2)
[2020-05-07 22:24] VITALS: BP 141/60
[2020-05-07 23:15] VITALS: BP 139/76
[2020-05-08 03:55] LABS: URINE BILIRUBIN NEGATIVE (Negative); URINE BLOOD NEGATIVE (Negative); URINE CLARITY CLEAR; URINE COLOR YELLOW; URINE GLUCOSE-RANDOM NEGATIVE (Negative); URINE KETONES NEGATIVE (Negative); URINE LEUKOCYTES 2+ (Negative); URINE NITRITE NEGATIVE (Negative); URINE PROTEIN 1+ (Negative); URINE SPECIFIC GRAVITY >= 1.030 (1.005-1.030); URINE UROBILINOGEN 0.2 E.U./dl (0.2-1.0)
[2020-05-08 04:00] VITALS: BP 135/71
[2020-05-08 04:04] LABS: BACTERIA >30 Many /HPF (None Seen); FINE GRANULAR CASTS 0-3 Few /LPF (None Seen); HYALINE CASTS 0-3 Few /LPF (None Seen); MUCUS 4-6 Moderate strn/LPF (None Seen); SQUAMOUS 0-3 Few /LPF (0-3); URINE RBC 3-10 Few /HPF (0-2); URINE WBC >25 Many /HPF (0-5); WBC CLUMPS Many (None Seen)
[2020-05-08 04:05] LABS: CRYSTALS None Seen /LPF (None Seen)
[2020-05-08 08:15] VITALS: BP 145/64
[2020-05-08 10:15] LABS: CALCIUM 8.5 mg/dL (8.5-10.1); MAGNESIUM 1.7 mg/dL (1.8-2.4)
[2020-05-08 10:19] LABS: POTASSIUM 6.3 mmol/L (3.5-5.1)
[2020-05-08 12:12] VITALS: BP 159/73
--- NOTE | 2020-05-08 12:58 | EKG ---
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: MARYAN : 1960 Requested By: Mau Batres Order Number: [id number] MD: Romario Simeon Measurements Intervals [place] Rate: 97 P: 72 MD: 160 QRS: -13 QRSD: 88 T: 98 QT: 350 QTc: 445 Interpretive Statements Sinus rhythm Low voltage, precordial leads Nonspecific T abnormalities, inferolateral leads Compared to ECG 12/06/2019 20:00:36 Low QRS voltage now present T-wave abnormality now present Electronically Signed On 05-08-2020 12:58:37 CDT by Romario Simeon [email or web address] <ELECTRONICALLY SIGNED> By: Romario Simeon MD, FACC 05/08/20 1258 42 42 Romario Simeon MD, FACC /EPI
[2020-05-08 12:59] LABS: BE 3.9 mmol/L (-2 to +3); PCO2 VENOUS 71.2 mmHg (41.0-51.0); PO2 VENOUS 30.5 mmHg (35.0-45.0)
[2020-05-08 16:10] VITALS: BP 92/27
--- NOTE | 2020-05-08 18:31 | CON ---
[address] [address] CONSULTATION Name: LEILA ANAND Room: [address] IN .R.#: [id number] Admission: 05/07/20 Attend Phys: Pipe Fenton MD Discharge: Date of : 58 Report #: [id number] THIS REPORT FOR: //name// cc: [facility] physician unknown [facility] physician unknown ~ THIS REPORT FOR: //name// CC: Pipe Fenton [facility] CARDIOLOGY CONSULTATION INDICATION: Respiratory failure. HISTORY OF PRESENT ILLNESS: The patient is a 60-year-old white female with chronic obstructive pulmonary disease, oxygen requiring. From a cardiac standpoint, she does have a history of diastolic heart failure. She has a history of coronary artery disease, apparently with percutaneous coronary intervention to the LAD in 2008. She follows with outside Cardiology. Echocardiogram last July showed normal LV systolic function and grade 1 diastolic dysfunction. She has had increasing shortness of breath for the last several days or couple of weeks. She has had low-grade fever. She denies chest pain. She reports swelling, especially on the left side of her body. Cardiac risk factors include dyslipidemia and diabetes. Her troponins are unremarkable. Her NT-proBNP is not significantly elevated. Chest x-ray shows appearance of possible left lower lobe pneumonia. PAST MEDICAL HISTORY: 1. COPD, oxygen requiring. 2. Diastolic heart failure. 3. Coronary artery disease with previous percutaneous coronary intervention. 4. Fatty liver disease. 5. PATRICK. 6. Obstructive sleep apnea. 7. OHS. 8. Morbid obesity. PAST SURGICAL HISTORY: 1. Tubal ligation. 2. Appendectomy. ALLERGIES: None documented. HOME MEDICATIONS: Albuterol solution q.i.d. p.r.n., albuterol inhaler q. 3-4 [place] [address] CONSULTATION Name: LEILA ANAND Room: [address] IN [facility]#: [id number] Admission: 05/07/20 Attend Phys: Pipe Fenton MD Discharge: Date of : 58 Report #: [id number] p.r.n., allopurinol 100 mg daily, amlodipine 10 mg daily, Abilify 5 mg daily, aspirin 81 mg daily, calcium carbonate 1000 mg daily, vitamin D3 400 units with 600 mg, calcium 1 tablet daily, clonazepam 1 mg as directed, diazepam 5 mg q. 6 hours p.r.n., fluticasone 50 mcg intranasally daily, gabapentin 100 mg t.i.d., garlic tablet 1 tablet daily, guaifenesin 1200 mg b.i.d., hydrocodone/acetaminophen 7.5/325 mg q. 4 hours p.r.n., [place] eye drops as directed, regular insulin per sliding scale, Combivent inhaler q.i.d., ketaconazole cream topically, levothyroxine 500 mg daily, Synthroid 0.1 mg daily, lisinopril 40 mg daily, magnesium oxide 400 mg daily, metformin ER 1000 mg b.i.d., Singulair 10 mg at bedtime, Nitrostat sublingual p.r.n., fish oil 1000 mg b.i.d., Zegerid 20 mg daily, prednisone 50 mg daily, Zoloft 100 mg 2 tablets daily, torsemide 20 mg daily, tramadol 50 mg at bedtime, capsaicin cream topically as directed. FAMILY HISTORY: Noncontributory. SOCIAL HISTORY: The patient quit smoking many years ago. She does not drink alcohol. PHYSICAL EXAMINATION: VITAL SIGNS: Blood pressure 159/73, pulse 94 and regular. GENERAL: This is an obese white female who is in no distress. BiPAP mask in place. HEENT: Head is normocephalic. Extraocular muscles intact. Mucous membranes appear moist. NECK: Thick without obvious jugular venous distention. CHEST: Breath sounds diffusely decreased throughout, especially in the bases. CARDIOVASCULAR: Reveals a regular rhythm without gallop or murmur. ABDOMEN: Reveals a protuberant abdomen, soft and nontender. EXTREMITIES: Shows no appreciable edema. SKIN: Dry. LABORATORY DATA: A 12-lead EKG shows sinus rhythm, nonspecific T-wave flattening. No acute ST segment abnormalities noted. Troponins are less than 0.06 on 3 separate occasions. NT-proBNP is 119. IMPRESSION AND RECOMMENDATIONS: 1. History of diastolic heart failure, presently appears compensated. NT-proBNP is not elevated. She does not appear to have significant extra volume. At this point, I would continue current medical treatment. 2. Coronary artery disease, presently stable. She is not having any symptoms to suggest angina or acute coronary syndrome. 3. Respiratory failure, likely due to underlying lung disease and possible pneumonia. 4. Hypertension. Continue home medications as outlined above. [facility] [address] [place] [address] [address] CONSULTATION Name: LEILA ANAND Room: [address] IN .R.#: [id number] Admission: 05/07/20 Attend Phys: Pipe Fenton MD Discharge: Date of : 58 Report #: [id number] 5. Dyslipidemia. I do not see that the patient is on a statin agent. I would consider the addition of atorvastatin 40 mg daily. From a cardiac standpoint, the patient does not appear to have significant heart failure at this time. We will follow as needed. <ELECTRONICALLY SIGNED> By: Romario Simeon MD, FACC 05/08/20 1831 1400 1418Romario Simeon MD, FAC /nt
[2020-05-08 20:00] VITALS: BP 109/46
[2020-05-09] VITALS (7 sets, daily range): BP systolic 92–159; BP diastolic 37–77
[2020-05-09 04:46] LABS: ABSOLUTE LYMPHOCYTES 3.3 thou/uL (0.8-5.3); ABSOLUTE MONOCYTES 0.8 thou/uL (0.0-1.2); ABSOLUTE NEUTROPHILS 10.3 thou/uL (1.6-8.1); BASOPHILS 0.3 %; EOSINOPHILS 0.3 %; HEMATOCRIT 33.3 % (37.0-47.0); HEMOGLOBIN 10.8 gm/dL (12.0-15.0); LYMPHOCYTES 22.9 %; MCH 28.1 pg (26.0-34.0); MCHC 32.5 g/dL (28.0-37.0); MCV 86.4 fL (80.0-100.0); MONOCYTES 5.7 %; MPV 7.6 fl. (7.2-11.1); NUCLEATED RBCS 0 /100WBC; PLATELET COUNT* 244 thou/uL (150-400); POLYS 70.8 %; RBC 3.85 mil/uL (4.20-5.00); RDW-CV 16.5 % (10.5-14.5); WBC 14.6 thou/uL (4.0-11.0)
[2020-05-09 05:04] LABS: ALBUMIN 2.9 g/dL (3.4-5.0); CALCIUM 8.5 mg/dL (8.5-10.1); CREATININE 1.6 mg/dL (0.6-1.3); MAGNESIUM 2.2 mg/dL (1.8-2.4); POTASSIUM 4.8 mmol/L (3.5-5.1); TOTAL BILIRUBIN 0.3 mg/dL (<0.1-1.0); TOTAL PROTEIN 7.4 g/dL (6.4-8.2)
[2020-05-10] VITALS: BP 133/51
[2020-05-10 04:00] VITALS: BP 130/53
[2020-05-10 06:08] LABS: HEMATOCRIT 33.1 % (37.0-47.0); HEMOGLOBIN 10.6 gm/dL (12.0-15.0); MCH 27.7 pg (26.0-34.0); MCHC 32.1 g/dL (28.0-37.0); MCV 86.4 fL (80.0-100.0); MPV 7.6 fl. (7.2-11.1); RBC 3.83 mil/uL (4.20-5.00); RDW-CV 16.3 % (10.5-14.5); WBC 10.4 thou/uL (4.0-11.0)
[2020-05-10 06:36] LABS: CALCIUM 8.2 mg/dL (8.5-10.1); POTASSIUM 4.5 mmol/L (3.5-5.1)
[2020-05-10 08:00] VITALS: BP 160/75
[2020-05-10 12:00] VITALS: BP 133/54
[2020-05-10 16:00] VITALS: BP 153/65
[2020-05-10 19:35] VITALS: BP 160/69
[2020-05-11] VITALS (7 sets, daily range): BP systolic 108–151; BP diastolic 41–74
[2020-05-11 06:24] LABS: ALBUMIN 2.9 g/dL (3.4-5.0); CALCIUM 8.8 mg/dL (8.5-10.1); MAGNESIUM 2.3 mg/dL (1.8-2.4); POTASSIUM 4.4 mmol/L (3.5-5.1); TOTAL BILIRUBIN 0.2 mg/dL (<0.1-1.0); TOTAL PROTEIN 7.3 g/dL (6.4-8.2)
[2020-05-12 04:21] VITALS: BP 108/41
[2020-05-12 04:24] VITALS: BP 102/44
[2020-05-12 04:59] LABS: CALCIUM 8.9 mg/dL (8.5-10.1); CREATININE 1.3 mg/dL (0.6-1.3)
[2020-05-12 05:03] LABS: POTASSIUM 5.4 mmol/L (3.5-5.1)
[2020-05-12 06:15] VITALS: BP 110/62
[2020-05-12 12:15] VITALS: BP 141/64
[2020-05-12 16:05] VITALS: BP 115/56
[2020-05-12 20:00] VITALS: BP 112/45
[2020-05-13 00:15] VITALS: BP 115/38
[2020-05-13 04:28] VITALS: BP 141/73
[2020-05-13 04:31] LABS: HEMOGLOBIN 11.3 gm/dL (12.0-15.0); MCH 27.9 pg (26.0-34.0); MCHC 32.3 g/dL (28.0-37.0); MCV 86.4 fL (80.0-100.0); MPV 7.5 fl. (7.2-11.1); RBC 4.05 mil/uL (4.20-5.00); RDW-CV 16.6 % (10.5-14.5); WBC 11.9 thou/uL (4.0-11.0)
[2020-05-13 04:43] LABS: ALBUMIN 3.2 g/dL (3.4-5.0); CALCIUM 8.6 mg/dL (8.5-10.1); CREATININE 1.4 mg/dL (0.6-1.3); MAGNESIUM 2.1 mg/dL (1.8-2.4); POTASSIUM 4.9 mmol/L (3.5-5.1); TOTAL BILIRUBIN 0.3 mg/dL (<0.1-1.0); TOTAL PROTEIN 7.6 g/dL (6.4-8.2)
[2020-05-13 08:00] VITALS: BP 124/72
[2020-05-13 12:02] VITALS: BP 124/45
[2020-05-13 14:00] VITALS: BP 130/50
[2020-05-13 20:00] VITALS: BP 154/61
[2020-05-14] VITALS (7 sets, daily range): BP systolic 101–138; BP diastolic 36–59
[2020-05-14 11:30] LABS: ABSOLUTE BASOPHILS 0.1 thou/uL (0.0-0.2); ABSOLUTE EOSINOPHILS 0.5 thou/uL (0.0-0.7); ABSOLUTE LYMPHOCYTES 3.1 thou/uL (0.8-5.3); ABSOLUTE MONOCYTES 0.4 thou/uL (0.0-1.2); BASOPHILS 1.2 %; EOSINOPHILS 4.2 %; HEMATOCRIT 35.6 % (37.0-47.0); HEMOGLOBIN 11.3 gm/dL (12.0-15.0); LYMPHOCYTES 27.7 %; MCH 27.8 pg (26.0-34.0); MCHC 31.8 g/dL (28.0-37.0); MCV 87.3 fL (80.0-100.0); MPV 7.4 fl. (7.2-11.1); NUCLEATED RBCS 0 /100WBC; PLATELET COUNT* 270 thou/uL (150-400); POLYS 62.9 %; RBC 4.08 mil/uL (4.20-5.00); RDW-CV 17.1 % (10.5-14.5); WBC 11.1 thou/uL (4.0-11.0)
[2020-05-14 12:11] LABS: ALBUMIN 3.4 g/dL (3.4-5.0); ALKALINE PHOSPHATASE 160 U/L (46-116); ANION GAP 8 mmol/L (7-16); BUN 49 mg/dL (7-18); CALCIUM 8.2 mg/dL (8.5-10.1); CHLORIDE 94 mmol/L (98-107); CO2 34 mmol/L (21-32); CREATININE 1.5 mg/dL (0.6-1.3); GLUCOSE 383 mg/dL (70-99); POTASSIUM 4.2 mmol/L (3.5-5.1); SGOT 48 U/L (15-37); SGPT 42 U/L (30-65); SODIUM 136 mmol/L (136-145); TOTAL BILIRUBIN 0.3 mg/dL (<0.1-1.0); TOTAL PROTEIN 7.2 g/dL (6.4-8.2)
[2020-05-14 12:39] LABS: ESR (SEDRATE) 40 mm/hr (0-30)
[2020-05-14 19:44] LABS: BE 9.6 mmol/L (-2 to +3); PCO2 VENOUS 69.2 mmHg (41.0-51.0); PO2 VENOUS 26.9 mmHg (35.0-45.0)
[2020-05-15] VITALS: BP 100/54
[2020-05-15 04:00] VITALS: BP 113/64
[2020-05-15 04:32] LABS: CALCIUM 9.1 mg/dL (8.5-10.1); CREATININE 2.2 mg/dL (0.6-1.3); MAGNESIUM 2.2 mg/dL (1.8-2.4)
[2020-05-15 04:33] LABS: POTASSIUM 5.3 mmol/L (3.5-5.1)
[2020-05-15 08:00] VITALS: BP 118/54
[2020-05-15 12:00] VITALS: BP 102/50
[2020-05-15 15:08] LABS: CALCIUM 8.5 mg/dL (8.5-10.1); CREATININE 2.2 mg/dL (0.6-1.3); POTASSIUM 4.4 mmol/L (3.5-5.1)
[2020-05-15 16:47] VITALS: BP 118/47
[2020-05-15 19:50] VITALS: BP 143/55
[2020-05-16] VITALS: BP 118/40
[2020-05-16 04:00] VITALS: BP 127/52
[2020-05-16 08:00] VITALS: BP 140/56
[2020-05-16 12:33] VITALS: BP 124/52
[2020-05-16 14:24] LABS: CALCIUM 8.6 mg/dL (8.5-10.1); CREATININE 1.4 mg/dL (0.6-1.3); POTASSIUM 5.2 mmol/L (3.5-5.1)
[2020-05-16 16:38] VITALS: BP 145/49
== END 2020-05-16 19:10 | DRG 871 ==
LOC: M.ERS 20:28 → M.TBA-ER 21:53 → M.2W 21:53
PROVIDERS: Emergency Medicine Emergency Medical Services; Internal Medicine; Internal Medicine Critical Care Medicine; ADMIT Internal Medicine; ATTEND Internal Medicine
PROC: 5A09357 Assistance with Respiratory Ventilation, Less than 24 Consecutive Hours, Continuous Positive Airway Pressure (ICD-10-PCS; principal; 2020-05-07)
PROC: 5A09357 Assistance with Respiratory Ventilation, Less than 24 Consecutive Hours, Continuous Positive Airway Pressure (ICD-10-PCS; 2020-05-08)
PROC: 5A09357 Assistance with Respiratory Ventilation, Less than 24 Consecutive Hours, Continuous Positive Airway Pressure (ICD-10-PCS; 2020-05-09)
PROC: 5A09357 Assistance with Respiratory Ventilation, Less than 24 Consecutive Hours, Continuous Positive Airway Pressure (ICD-10-PCS; 2020-05-15)
DX: A41.9 Sepsis, unspecified organism (principal); J96.21 Acute and chronic respiratory failure with hypoxia; J15.6 Pneumonia due to other Gram-negative bacteria; I50.33 Acute on chronic diastolic (congestive) heart failure; J96.22 Acute and chronic respiratory failure with hypercapnia; Z68.42 Body mass index [BMI] 45.0-49.9, adult; E66.2 Morbid (severe) obesity with alveolar hypoventilation; J44.0 Chronic obstructive pulmonary disease with (acute) lower respiratory infection; I16.1 Hypertensive emergency; N17.9 Acute kidney failure, unspecified; I13.0 Hypertensive heart and chronic kidney disease with heart failure and stage 1 through stage 4 chronic kidney disease, or unspecified chronic kidney disease; E78.00 Pure hypercholesterolemia, unspecified; E78.5 Hyperlipidemia, unspecified; K75.81 Nonalcoholic steatohepatitis (NASH); N18.2 Chronic kidney disease, stage 2 (mild); E87.5 Hyperkalemia; E11.22 Type 2 diabetes mellitus with diabetic chronic kidney disease; I25.10 Atherosclerotic heart disease of native coronary artery without angina pectoris; Z20.828 Contact with and (suspected) exposure to other viral communicable diseases; Z82.49 Family history of ischemic heart disease and other diseases of the circulatory system; Z95.5 Presence of coronary angioplasty implant and graft; Z90.49 Acquired absence of other specified parts of digestive tract; Z87.891 Personal history of nicotine dependence

== ENCOUNTER 2020-05-16 18:09 | Inpatient (IN) | payer MEDICAID ==
[~2020-05-16] VITALS: Ht 157.5 cm; Wt 122.9 kg
[2020-05-16 19:40] VITALS: BP 180/74
[2020-05-17 03:53] VITALS: BP 110/47
[2020-05-17 05:21] LABS: HEMATOCRIT 31.7 % (37.0-47.0); HEMOGLOBIN 10.3 gm/dL (12.0-15.0); MCH 28.1 pg (26.0-34.0); MCHC 32.4 g/dL (28.0-37.0); MCV 86.8 fL (80.0-100.0); MPV 7.8 fl. (7.2-11.1); RBC 3.66 mil/uL (4.20-5.00); RDW-CV 16.4 % (10.5-14.5); WBC 7.3 thou/uL (4.0-11.0)
[2020-05-17 05:23] LABS: CALCIUM 8.7 mg/dL (8.5-10.1); CREATININE 0.9 mg/dL (0.6-1.3); POTASSIUM 4.5 mmol/L (3.5-5.1)
[2020-05-17 08:00] VITALS: BP 156/70
[2020-05-17 20:06] VITALS: BP 143/53
[2020-05-18 08:00] VITALS: BP 164/72
[2020-05-18 20:00] VITALS: BP 160/74
[2020-05-19 08:00] VITALS: BP 144/60
[2020-05-19 20:00] VITALS: BP 153/63
[2020-05-20 05:46] LABS: CALCIUM 9.2 mg/dL (8.5-10.1); CREATININE 0.9 mg/dL (0.6-1.3); MAGNESIUM 1.8 mg/dL (1.8-2.4); POTASSIUM 4.4 mmol/L (3.5-5.1)
[2020-05-20 08:00] VITALS: BP 194/76
[2020-05-20 10:00] VITALS: BP 150/55
[2020-05-20 20:00] VITALS: BP 149/58
[2020-05-21 08:00] VITALS: BP 137/73
[2020-05-21 20:00] VITALS: BP 150/63
[2020-05-22 08:00] VITALS: BP 158/70
[2020-05-22 20:10] VITALS: BP 142/60
[2020-05-23 08:30] VITALS: BP 158/68
[2020-05-23 16:54] LABS: CALCIUM 8.9 mg/dL (8.5-10.1); POTASSIUM 4.6 mmol/L (3.5-5.1)
[2020-05-23 20:00] VITALS: BP 105/56
[2020-05-24 05:15] VITALS: BP 161/72
[2020-05-24 20:00] VITALS: BP 146/55
[2020-05-25 08:00] VITALS: BP 179/75
[2020-05-25 09:10] LABS: CALCIUM 9.1 mg/dL (8.5-10.1); CREATININE 0.9 mg/dL (0.6-1.3); POTASSIUM 3.9 mmol/L (3.5-5.1)
[2020-05-25 20:00] VITALS: BP 160/69
[2020-05-26 05:09] LABS: CALCIUM 9.1 mg/dL (8.5-10.1)
[2020-05-26 07:30] VITALS: BP 153/63
[2020-05-26 11:55] VITALS: BP 156/71
[2020-05-26 17:32] VITALS: BP 141/54
[2020-05-26 20:00] VITALS: BP 177/70
[2020-05-27 04:27] LABS: CALCIUM 8.8 mg/dL (8.5-10.1); CREATININE 1.5 mg/dL (0.6-1.3); POTASSIUM 4.3 mmol/L (3.5-5.1)
[2020-05-27 05:47] VITALS: BP 107/46
[2020-05-27 08:00] VITALS: BP 115/47
[2020-05-27 13:19] LABS: ABSOLUTE BASOPHILS 0.1 thou/uL (0.0-0.2); ABSOLUTE EOSINOPHILS 0.5 thou/uL (0.0-0.7); ABSOLUTE LYMPHOCYTES 3.5 thou/uL (0.8-5.3); ABSOLUTE MONOCYTES 0.8 thou/uL (0.0-1.2); BASOPHILS 0.7 %; EOSINOPHILS 4.6 %; HEMATOCRIT 31.8 % (37.0-47.0); HEMOGLOBIN 10.2 gm/dL (12.0-15.0); LYMPHOCYTES 29.3 %; MCH 27.9 pg (26.0-34.0); MCHC 32.1 g/dL (28.0-37.0); MCV 86.8 fL (80.0-100.0); MONOCYTES 6.5 %; MPV 8.6 fl. (7.2-11.1); NUCLEATED RBCS 0 /100WBC; PLATELET COUNT* 256 thou/uL (150-400); POLYS 58.9 %; RBC 3.66 mil/uL (4.20-5.00); RDW-CV 16.7 % (10.5-14.5); WBC 11.9 thou/uL (4.0-11.0)
[2020-05-27 19:00] VITALS: BP 112/43
[2020-05-27 23:49] VITALS: BP 84/40
[2020-05-28 05:59] VITALS: BP 127/60
[2020-05-28 07:00] VITALS: BP 139/61
[2020-05-28 13:49] LABS: BE 5.3 mmol/L (-2 to +3)
[2020-05-28 13:55] LABS: PCO2 73.1 mmHg (35.0-45.0); pH 7.284 (7.340-7.450)
[2020-05-28 13:56] LABS: PO2 55.2 mmHg (75.0-100.0)
[2020-05-28 17:15] VITALS: BP 112/51
[2020-05-28 20:23] VITALS: BP 124/48
[2020-05-28 23:03] VITALS: BP 90/37
[2020-05-28 23:04] VITALS: BP 125/62
[2020-05-29 06:32] VITALS: BP 141/59
[2020-05-29 08:00] VITALS: BP 131/53
[2020-05-29 20:00] VITALS: BP 132/53
[2020-05-30 05:25] LABS: CALCIUM 8.6 mg/dL (8.5-10.1); CREATININE 1.3 mg/dL (0.6-1.3); POTASSIUM 4.5 mmol/L (3.5-5.1)
[2020-05-30 08:00] VITALS: BP 131/59
[2020-05-30 20:00] VITALS: BP 103/61
[2020-05-31 08:43] VITALS: BP 146/69
[2020-05-31 16:58] VITALS: BP 151/64
[2020-05-31 20:00] VITALS: BP 177/56
[2020-06-01 04:57] LABS: ABSOLUTE BASOPHILS 0.1 thou/uL (0.0-0.2); ABSOLUTE EOSINOPHILS 0.4 thou/uL (0.0-0.7); ABSOLUTE LYMPHOCYTES 3.1 thou/uL (0.8-5.3); ABSOLUTE MONOCYTES 0.8 thou/uL (0.0-1.2); ABSOLUTE NEUTROPHILS 5.1 thou/uL (1.6-8.1); BASOPHILS 0.6 %; EOSINOPHILS 3.9 %; HEMATOCRIT 31.9 % (37.0-47.0); HEMOGLOBIN 10.3 gm/dL (12.0-15.0); LYMPHOCYTES 32.5 %; MCH 27.5 pg (26.0-34.0); MCHC 32.3 g/dL (28.0-37.0); MCV 85.2 fL (80.0-100.0); MONOCYTES 8.5 %; MPV 7.8 fl. (7.2-11.1); NUCLEATED RBCS 0 /100WBC; PLATELET COUNT* 234 thou/uL (150-400); POLYS 54.5 %; RBC 3.75 mil/uL (4.20-5.00); RDW-CV 16.5 % (10.5-14.5); WBC 9.4 thou/uL (4.0-11.0)
[2020-06-01 05:50] VITALS: BP 156/70
[2020-06-01 07:30] VITALS: BP 137/52
[2020-06-01 19:00] VITALS: BP 143/55
[2020-06-02 03:05] LABS: GLYCOHEMOGLOBIN (HGB A1C) 9.5 % (4.8-5.6)
[2020-06-02 04:09] LABS: CALCIUM 8.9 mg/dL (8.5-10.1); CREATININE 0.9 mg/dL (0.6-1.3); POTASSIUM 4.5 mmol/L (3.5-5.1)
[2020-06-02 07:00] VITALS: BP 150/64
[2020-06-02 21:00] VITALS: BP 144/45
[2020-06-03 08:45] VITALS: BP 156/67
[2020-06-03 19:00] VITALS: BP 151/53
[2020-06-04 08:45] VITALS: BP 138/56
[2020-06-04 15:34] LABS: ABSOLUTE BASOPHILS 0.1 thou/uL (0.0-0.2); ABSOLUTE EOSINOPHILS 0.4 thou/uL (0.0-0.7); ABSOLUTE LYMPHOCYTES 3.1 thou/uL (0.8-5.3); ABSOLUTE MONOCYTES 0.8 thou/uL (0.0-1.2); ABSOLUTE NEUTROPHILS 7.2 thou/uL (1.6-8.1); BASOPHILS 0.4 %; EOSINOPHILS 3.8 %; HEMATOCRIT 32.1 % (37.0-47.0); HEMOGLOBIN 10.2 gm/dL (12.0-15.0); LYMPHOCYTES 26.6 %; MCH 26.9 pg (26.0-34.0); MCHC 31.7 g/dL (28.0-37.0); MCV 84.9 fL (80.0-100.0); MONOCYTES 7.3 %; MPV 7.2 fl. (7.2-11.1); NUCLEATED RBCS 0 /100WBC; PLATELET COUNT* 284 thou/uL (150-400); POLYS 61.9 %; RBC 3.78 mil/uL (4.20-5.00); RDW-CV 16.3 % (10.5-14.5); WBC 11.6 thou/uL (4.0-11.0)
[2020-06-04 15:54] LABS: ALBUMIN 3.3 g/dL (3.4-5.0); CALCIUM 8.7 mg/dL (8.5-10.1); MAGNESIUM 1.8 mg/dL (1.8-2.4); PHOSPHORUS* 4.1 mg/dL (2.5-4.9); POTASSIUM 4.3 mmol/L (3.5-5.1); TOTAL BILIRUBIN 0.3 mg/dL (<0.1-1.0); TOTAL PROTEIN 7.8 g/dL (6.4-8.2)
[2020-06-04 19:58] VITALS: BP 155/49
[2020-06-05 08:00] VITALS: BP 150/62
[2020-06-05 10:27] LABS: CALCIUM 8.8 mg/dL (8.5-10.1); CREATININE 1.1 mg/dL (0.6-1.3); POTASSIUM 4.4 mmol/L (3.5-5.1)
[2020-06-05 19:45] VITALS: BP 138/49
[2020-06-06 05:42] VITALS: BP 149/61
[2020-06-06 07:00] VITALS: BP 154/56
[2020-06-06] MEDS ORDERED: METOLAZONE 5 MG5 MG PO (09:21)
[2020-06-06] MEDS ORDERED: COZAAR 50 MG TA50 M1 PO (09:21)
[2020-06-06] MEDS ORDERED: BUMETANIDE 1 MG1 M1 PO (09:21)
[2020-06-06] MEDS ORDERED: LANTUS100 UNIT/M SUBQ (09:21)
[2020-06-06 20:16] VITALS: BP 141/52
[2020-06-07 05:03] LABS: CALCIUM 9.2 mg/dL (8.5-10.1); POTASSIUM 4.2 mmol/L (3.5-5.1)
[2020-06-07 05:27] VITALS: BP 147/53
[2020-06-07 07:00] VITALS: BP 146/49
[2020-06-07 20:00] VITALS: BP 138/60
[2020-06-08 07:30] VITALS: BP 141/76
[2020-06-08 19:00] VITALS: BP 100/61
[2020-06-09 04:34] LABS: HEMATOCRIT 31.6 % (37.0-47.0); MCH 26.8 pg (26.0-34.0); MCHC 31.6 g/dL (28.0-37.0); MCV 84.7 fL (80.0-100.0); MPV 7.4 fl. (7.2-11.1); RBC 3.73 mil/uL (4.20-5.00); RDW-CV 16.3 % (10.5-14.5); WBC 11.1 thou/uL (4.0-11.0)
[2020-06-09 05:43] LABS: ALBUMIN 3.2 g/dL (3.4-5.0); ALKALINE PHOSPHATASE 158 U/L (46-116); ANION GAP 6 mmol/L (7-16); BUN 46 mg/dL (7-18); CALCIUM 8.8 mg/dL (8.5-10.1); CHLORIDE 93 mmol/L (98-107); CHOLESTEROL 206 mg/dL (<200); CO2 36 mmol/L (21-32); CREATININE 1.3 mg/dL (0.6-1.3); GLUCOSE 231 mg/dL (70-99); HDL CHOLESTEROL 44 mg/dL (>40); LDL CHOLESTEROL 98 mg/dL (<100); MAGNESIUM 1.9 mg/dL (1.8-2.4); POTASSIUM 4.3 mmol/L (3.5-5.1); SERUM ASSESSMENT Clear; SGOT 24 U/L (15-37); SGPT 31 U/L (30-65); SODIUM 135 mmol/L (136-145); TC:HDL 4.7 Ratio (Not establshd); TOTAL BILIRUBIN 0.3 mg/dL (<0.1-1.0); TOTAL PROTEIN 7.6 g/dL (6.4-8.2); TRIGLYCERIDE 324 mg/dL (<150); VLDL 65 mg/dL (<40)
[2020-06-09 08:56] VITALS: BP 104/68
[2020-06-09] MEDS ORDERED: ZETIA10 MG PO (11:39)
[2020-06-09 15:35] VITALS: BP 150/66
[2020-06-09 22:20] VITALS: BP 126/56
[2020-06-10 10:18] VITALS: BP 141/57
[2020-06-10 11:46] VITALS: BP 150/66
[2020-06-10 12:09] VITALS: BP 128/58
== END 2020-06-10 16:00 | disposition home health service (06) | DRG 947 ==
LOC: M.REH 18:09
PROVIDERS: Internal Medicine; Internal Medicine Cardiovascular Disease; Internal Medicine Critical Care Medicine; Registered Nurse; ADMIT Physical Medicine & Rehabilitation; ATTEND Physical Medicine & Rehabilitation
PROC: 5A09357 Assistance with Respiratory Ventilation, Less than 24 Consecutive Hours, Continuous Positive Airway Pressure (ICD-10-PCS; principal; 2020-05-18)
PROC: 5A09357 Assistance with Respiratory Ventilation, Less than 24 Consecutive Hours, Continuous Positive Airway Pressure (ICD-10-PCS; 2020-05-19)
PROC: 5A09357 Assistance with Respiratory Ventilation, Less than 24 Consecutive Hours, Continuous Positive Airway Pressure (ICD-10-PCS; 2020-05-20)
PROC: 5A09357 Assistance with Respiratory Ventilation, Less than 24 Consecutive Hours, Continuous Positive Airway Pressure (ICD-10-PCS; 2020-05-21)
PROC: 5A09357 Assistance with Respiratory Ventilation, Less than 24 Consecutive Hours, Continuous Positive Airway Pressure (ICD-10-PCS; 2020-05-22)
PROC: 5A09357 Assistance with Respiratory Ventilation, Less than 24 Consecutive Hours, Continuous Positive Airway Pressure (ICD-10-PCS; 2020-05-23)
PROC: 5A09357 Assistance with Respiratory Ventilation, Less than 24 Consecutive Hours, Continuous Positive Airway Pressure (ICD-10-PCS; 2020-05-27)
PROC: 5A09357 Assistance with Respiratory Ventilation, Less than 24 Consecutive Hours, Continuous Positive Airway Pressure (ICD-10-PCS; 2020-05-28)
PROC: 5A09357 Assistance with Respiratory Ventilation, Less than 24 Consecutive Hours, Continuous Positive Airway Pressure (ICD-10-PCS; 2020-05-29)
PROC: 5A09357 Assistance with Respiratory Ventilation, Less than 24 Consecutive Hours, Continuous Positive Airway Pressure (ICD-10-PCS; 2020-06-02)
PROC: 5A09357 Assistance with Respiratory Ventilation, Less than 24 Consecutive Hours, Continuous Positive Airway Pressure (ICD-10-PCS; 2020-06-04)
PROC: 5A09357 Assistance with Respiratory Ventilation, Less than 24 Consecutive Hours, Continuous Positive Airway Pressure (ICD-10-PCS; 2020-06-05)
PROC: 5A09357 Assistance with Respiratory Ventilation, Less than 24 Consecutive Hours, Continuous Positive Airway Pressure (ICD-10-PCS; 2020-06-06)
PROC: 5A09357 Assistance with Respiratory Ventilation, Less than 24 Consecutive Hours, Continuous Positive Airway Pressure (ICD-10-PCS; 2020-06-07)
PROC: 5A09357 Assistance with Respiratory Ventilation, Less than 24 Consecutive Hours, Continuous Positive Airway Pressure (ICD-10-PCS; 2020-06-08)
PROC: 5A09357 Assistance with Respiratory Ventilation, Less than 24 Consecutive Hours, Continuous Positive Airway Pressure (ICD-10-PCS; 2020-06-09)
DX: R53.81 Other malaise (principal); J96.21 Acute and chronic respiratory failure with hypoxia; J96.22 Acute and chronic respiratory failure with hypercapnia; I50.33 Acute on chronic diastolic (congestive) heart failure; J18.9 Pneumonia, unspecified organism; N17.9 Acute kidney failure, unspecified; E66.2 Morbid (severe) obesity with alveolar hypoventilation; Z68.42 Body mass index [BMI] 45.0-49.9, adult; J44.0 Chronic obstructive pulmonary disease with (acute) lower respiratory infection; I13.0 Hypertensive heart and chronic kidney disease with heart failure and stage 1 through stage 4 chronic kidney disease, or unspecified chronic kidney disease; I25.10 Atherosclerotic heart disease of native coronary artery without angina pectoris; K75.81 Nonalcoholic steatohepatitis (NASH); N18.9 Chronic kidney disease, unspecified; E11.22 Type 2 diabetes mellitus with diabetic chronic kidney disease; D64.9 Anemia, unspecified

== ENCOUNTER 2020-07-02 21:41 | Emergency (ER) | payer MEDICAID ==
[~2020-07-02] VITALS: Ht 157.5 cm; Wt 130.3 kg
[~2020-07-02 21:41] MED LIST changes: +BUMETANIDE 1 MG1 M1 PO; +COZAAR 50 MG TA50 M1 PO; +METOLAZONE 5 MG5 MG PO; +ZETIA10 MG PO
[2020-07-02 22:21] LABS: ABSOLUTE BASOPHILS 0.1 thou/uL (0.0-0.2); ABSOLUTE EOSINOPHILS 0.3 thou/uL (0.0-0.7); ABSOLUTE LYMPHOCYTES 3.5 thou/uL (0.8-5.3); ABSOLUTE MONOCYTES 0.9 thou/uL (0.0-1.2); EOSINOPHILS 2.7 %; HEMATOCRIT 34.9 % (37.0-47.0); HEMOGLOBIN 11.4 gm/dL (12.0-15.0); LYMPHOCYTES 27.2 %; MCH 26.7 pg (26.0-34.0); MCHC 32.6 g/dL (28.0-37.0); MCV 81.8 fL (80.0-100.0); MONOCYTES 6.7 %; MPV 7.5 fl. (7.2-11.1); NUCLEATED RBCS 0 /100WBC; PLATELET COUNT* 258 thou/uL (150-400); POLYS 62.4 %; RBC 4.26 mil/uL (4.20-5.00); RDW-CV 16.1 % (10.5-14.5); WBC 12.8 thou/uL (4.0-11.0)
[2020-07-02 22:38] LABS: CALCIUM 8.7 mg/dL (8.5-10.1); CREATININE 0.8 mg/dL (0.6-1.3); POTASSIUM 3.9 mmol/L (3.5-5.1)
[2020-07-02 22:49] LABS: MAGNESIUM 1.6 mg/dL (1.8-2.4); TOTAL BILIRUBIN 0.2 mg/dL (<0.1-1.0); TOTAL PROTEIN 7.9 g/dL (6.4-8.2)
[2020-07-02 23:23] LABS: BE 6.7 mmol/L (-2 to +3); PO2 91.1 mmHg (75.0-100.0); pH 7.329 (7.340-7.450)
[2020-07-02 23:24] LABS: PCO2 67.3 mmHg (35.0-45.0)
[2020-07-02] MEDS ORDERED: LEVAQUIN 500 M500 MG PO (23:40)
[2020-07-03 00:08] VITALS: BP 166/73
--- NOTE | 2020-07-03 13:05 | EKG ---
[place] [address] ELECTROCARDIOGRAM REPORT Name: KIKALEILA Amanda Room: [facility]#: [id number] Admission: 07/02/20 Attend Phys: Discharge: 07/03/20 Date of : 58 Date of Service: 07/02/202151 Report #: [id number] THIS REPORT FOR: //name// [facility] ED Test Date: 2020-07-02 Test Time: 21:52:26 Pat Name: LEILA ANAND Department: Room: Gender: F Rn Embedded: MARYAN : 1960 Requested By: Trista Avila Order Number: [id number] MD: Romario Simeon Measurements Intervals [place] Rate: 95 P: 59 AR: 146 QRS: -25 QRSD: 79 T: 100 QT: 352 QTc: 443 Interpretive Statements Sinus rhythm Borderline left axis deviation Nonspecific T abnormalities, lateral leads Compared to ECG 05/07/2020 20:43:47 No significant changes Electronically Signed On 07-03-2020 13:05:08 CDT by Romario Simeon [email or web address] <ELECTRONICALLY SIGNED> By: Romario Simeon MD, FACC 07/03/20 1305 51 51 Romario Simeon MD, [facility] /EPI
== END 2020-07-03 00:09 | disposition home or self-care (01) ==
LOC: M.ERS 21:41
PROVIDERS: Emergency Medicine
DX: R06.00 Dyspnea, unspecified (principal); R06.02 Shortness of breath; E78.00 Pure hypercholesterolemia, unspecified; E66.01 Morbid (severe) obesity due to excess calories; J44.9 Chronic obstructive pulmonary disease, unspecified; E11.9 Type 2 diabetes mellitus without complications; I50.9 Heart failure, unspecified; I11.0 Hypertensive heart disease with heart failure; Z79.899 Other long term (current) drug therapy; Z79.4 Long term (current) use of insulin; Z79.82 Long term (current) use of aspirin; Z87.891 Personal history of nicotine dependence

== ENCOUNTER 2020-08-16 20:42 | Emergency (ER) | payer MEDICAID ==
[~2020-08-16] VITALS: Ht 175.3 cm; Wt 125.2 kg
[2020-08-16 21:19] LABS: ABSOLUTE BASOPHILS 0.1 thou/uL (0.0-0.2); ABSOLUTE EOSINOPHILS 0.3 thou/uL (0.0-0.7); ABSOLUTE LYMPHOCYTES 3.1 thou/uL (0.8-5.3); ABSOLUTE MONOCYTES 0.7 thou/uL (0.0-1.2); ABSOLUTE NEUTROPHILS 7.4 thou/uL (1.6-8.1); BASOPHILS 1.1 %; EOSINOPHILS 2.5 %; HEMATOCRIT 40.5 % (37.0-47.0); HEMOGLOBIN 12.6 gm/dL (12.0-15.0); LYMPHOCYTES 26.8 %; MCH 25.8 pg (26.0-34.0); MCHC 31.2 g/dL (28.0-37.0); MCV 82.6 fL (80.0-100.0); MONOCYTES 6.1 %; MPV 7.8 fl. (7.2-11.1); NUCLEATED RBCS 0 /100WBC; PLATELET COUNT* 214 thou/uL (150-400); POLYS 63.5 %; RDW-CV 17.1 % (10.5-14.5); WBC 11.7 thou/uL (4.0-11.0)
[2020-08-16 21:28] LABS: CREATININE 0.8 mg/dL (0.6-1.3); POTASSIUM 4.3 mmol/L (3.5-5.1)
[2020-08-16 21:36] LABS: APTT 26.9 Seconds (25.0-31.3); INR 0.9; PROTIME 9.8 Seconds (9.20-11.50)
[2020-08-16 21:39] LABS: ALBUMIN 3.4 g/dL (3.4-5.0); MAGNESIUM 1.8 mg/dL (1.8-2.4); TOTAL BILIRUBIN 0.3 mg/dL (<0.1-1.0); TOTAL PROTEIN 8.5 g/dL (6.4-8.2)
[2020-08-16] MEDS ORDERED: PREDNISONE 20 M20 M1 PO (22:11)
[2020-08-16] MEDS ORDERED: ZPAK PO (22:11)
[2020-08-16 22:16] VITALS: BP 102/67
--- NOTE | 2020-08-17 12:14 | EKG ---
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: : 1960 Requested By: Irvin Andrade Order Number: [id number] MD: Dominick Kerr Measurements Intervals [place] Rate: 100 P: 72 [place]: 153 QRS: -33 QRSD: 80 T: 88 QT: 349 QTc: 451 Interpretive Statements Sinus tachycardia Left axis deviation Borderline low voltage, extremity leads Abnormal R-wave progression, late transition Compared to ECG 07/02/2020 21:52:26 Sinus rhythm no longer present T-wave abnormality no longer present Electronically Signed On 08-17-2020 12:14:27 CDT by Dominick Kerr [email or web address] <ELECTRONICALLY SIGNED> By: Kathy Kerr MD, FACC 08/17/201213 53 53 Kathy Kerr MD, FACC /EPI
== END 2020-08-16 22:23 | disposition home or self-care (01) ==
LOC: M.ERS 20:42
PROVIDERS: Family Medicine
DX: J96.90 Respiratory failure, unspecified, unspecified whether with hypoxia or hypercapnia (principal); Z20.828 Contact with and (suspected) exposure to other viral communicable diseases; J44.1 Chronic obstructive pulmonary disease with (acute) exacerbation; J20.9 Acute bronchitis, unspecified; E11.9 Type 2 diabetes mellitus without complications; I50.9 Heart failure, unspecified; I11.0 Hypertensive heart disease with heart failure; E78.00 Pure hypercholesterolemia, unspecified; E66.01 Morbid (severe) obesity due to excess calories; Z87.891 Personal history of nicotine dependence; Z79.899 Other long term (current) drug therapy; Z79.82 Long term (current) use of aspirin; Z79.4 Long term (current) use of insulin

== ENCOUNTER 2020-11-15 18:01 | Inpatient (IN) | payer MEDICAID ==
[~2020-11-15] VITALS: Ht 157.5 cm; Wt 115.3 kg
[2020-11-15 18:02] VITALS: BP 200/84
[2020-11-15 18:27] LABS: ABSOLUTE BASOPHILS 0.1 thou/uL (0.0-0.2); ABSOLUTE EOSINOPHILS 0.2 thou/uL (0.0-0.7); ABSOLUTE LYMPHOCYTES 5.9 thou/uL (0.8-5.3); ABSOLUTE NEUTROPHILS 10.1 thou/uL (1.6-8.1); BASOPHILS 0.8 %; HEMOGLOBIN 14.1 gm/dL (12.0-15.0); LYMPHOCYTES 34.2 %; MCH 27.1 pg (26.0-34.0); MCHC 31.4 g/dL (28.0-37.0); MCV 86.5 fL (80.0-100.0); MONOCYTES 5.6 %; MPV 7.7 fl. (7.2-11.1); NUCLEATED RBCS 0 /100WBC; PLATELET COUNT* 222 thou/uL (150-400); POLYS 58.4 %; WBC 17.3 thou/uL (4.0-11.0)
[2020-11-15 18:39] LABS: CALCIUM 9.4 mg/dL (8.5-10.1); CREATININE 0.7 mg/dL (0.6-1.3)
[2020-11-15 18:42] LABS: APTT 26.3 Seconds (25.0-31.3); PROTIME 10.2 Seconds (9.20-11.50)
[2020-11-15 18:50] LABS: ALBUMIN 3.1 g/dL (3.4-5.0); TOTAL BILIRUBIN 0.5 mg/dL (<0.1-1.0); TOTAL PROTEIN 8.5 g/dL (6.4-8.2)
[2020-11-15 20:29] LABS: BE 7.7 mmol/L (-2 to +3); PO2 63.5 mmHg (75.0-100.0); pH 7.319 (7.340-7.450)
[2020-11-15 20:32] LABS: PCO2 72.5 mmHg (35.0-45.0)
[2020-11-15 22:26] VITALS: BP 129/65
[2020-11-15 22:30] VITALS: BP 138/73
[2020-11-15 22:32] VITALS: BP 115/72
[2020-11-15 23:00] VITALS: BP 125/69
[2020-11-15 23:30] VITALS: BP 137/77
[2020-11-16] VITALS (49 sets, daily range): BP systolic 107–169; BP diastolic 38–89
[2020-11-16 03:30] LABS: HEMATOCRIT 37.7 % (37.0-47.0); MCH 27.3 pg (26.0-34.0); MCHC 32.1 g/dL (28.0-37.0); MCV 85.1 fL (80.0-100.0); MPV 7.7 fl. (7.2-11.1); NUCLEATED RBCS 0 /100WBC; PLATELET COUNT* 215 thou/uL (150-400); RBC 4.43 mil/uL (4.20-5.00); RDW-CV 14.9 % (10.5-14.5); WBC 9.9 thou/uL (4.0-11.0)
[2020-11-16 03:33] LABS: HEMOGLOBIN 12.1 gm/dL (12.0-15.0)
[2020-11-16 03:50] LABS: ALBUMIN 2.7 g/dL (3.4-5.0); CALCIUM 9.4 mg/dL (8.5-10.1); CREATININE 0.8 mg/dL (0.6-1.3); POTASSIUM 4.4 mmol/L (3.5-5.1); TOTAL BILIRUBIN 0.7 mg/dL (<0.1-1.0); TOTAL PROTEIN 7.4 g/dL (6.4-8.2)
[2020-11-16 05:39] LABS: BE 5.1 mmol/L (-2 to +3); PCO2 39.5 mmHg (35.0-45.0); PO2 66.1 mmHg (75.0-100.0); pH 7.482 (7.340-7.450)
[2020-11-16 06:21] LABS: ABSOLUTE LYMPHOCYTES 1.2 thou/uL (0.8-5.3); ABSOLUTE MONOCYTES 0.1 thou/uL (0.0-1.2); ABSOLUTE NEUTROPHILS 8.6 thou/uL (1.6-8.1); ANISOCYTOSIS 1+; PLATELET ESTIMATE ADEQUATE; POIKILOCYTOSIS 1+
--- NOTE | 2020-11-16 13:55 | EKG ---
[place] [address] ELECTROCARDIOGRAM REPORT Name: KIKALEILA Patel Room: [address] ADM IN M.R.#: [id number] Admission: 11/15/20 Attend Phys: Melissa Lawrence MD Discharge: Date of : 58 Date of Service: 11/15/20 1841 Report #: [id number] THIS REPORT FOR: //name// [facility] ED Test Date: 2020-11-15 Test Time: 18:41:50 Pat Name: LEILA ANAND Department: Room: [facility] Gender: F Insurance Rater: KEO : 1960 Requested By: Irvin Andrade Order Number: [id number] MD: Clayton Montejo Measurements Intervals [place] Rate: 107 P: 71 [place]: 154 QRS: -26 QRSD: 77 T: 106 QT: 347 QTc: 463 Interpretive Statements Sinus tachycardia Atrial premature complex Inferior infarct, old Consider anterior infarct Lateral leads are also involved Baseline wander in lead(s) I,III,aVL Compared to ECG 08/16/2020 20:54:41 Atrial premature complex(es) now present Myocardial infarct finding now present Electronically Signed On 11-16-2020 13:55:06 COUNTY DEMONSTRATOR by Clayton Montejo [email or web address] <ELECTRONICALLY SIGNED> By: Clayton Montejo MD, [facility] 11/16/20 1355 40 40 Clayton Montejo MD, [facility] /EPI
[2020-11-17] VITALS (48 sets, daily range): BP systolic 117–160; BP diastolic 54–83
[2020-11-17 02:15] LABS: CALCIUM 8.9 mg/dL (8.5-10.1); CREATININE 0.9 mg/dL (0.6-1.3)
[2020-11-17 02:28] LABS: POTASSIUM 2.9 mmol/L (3.5-5.1)
[2020-11-17 06:30] LABS: HEMATOCRIT 34.9 % (37.0-47.0); HEMOGLOBIN 11.4 gm/dL (12.0-15.0); MCH 27.6 pg (26.0-34.0); MCHC 32.7 g/dL (28.0-37.0); MCV 84.3 fL (80.0-100.0); MPV 7.7 fl. (7.2-11.1); RBC 4.13 mil/uL (4.20-5.00); RDW-CV 15.1 % (10.5-14.5); WBC 7.4 thou/uL (4.0-11.0)
[2020-11-17 06:53] LABS: ALBUMIN 2.4 g/dL (3.4-5.0); CALCIUM 8.9 mg/dL (8.5-10.1); CREATININE 0.8 mg/dL (0.6-1.3); POTASSIUM 3.3 mmol/L (3.5-5.1); TOTAL BILIRUBIN 0.3 mg/dL (<0.1-1.0); TOTAL PROTEIN 6.7 g/dL (6.4-8.2)
[2020-11-17 12:21] LABS: BE 5.5 mmol/L (-2 to +3); PCO2 39.6 mmHg (35.0-45.0); PO2 77.4 mmHg (75.0-100.0); pH 7.487 (7.340-7.450)
--- NOTE | 2020-11-17 14:58 | 2DMMODE ---
[place] [address] 2 D/M-MODE ECHOCARDIOGRAM Name: LEILA ANAND Room: [address] IN .R.#: [id number] Admission: 11/15/20 Attend Phys: Melissa Lawrence MD Discharge: Date of : 58 Date of Service: 11/17/20 1458 Report #: [id number] THIS REPORT FOR: cc: FAM - No family physician/PCP FAM - No family physician/PCP Adolph Lanza MD [facility] ~ APPROVED REPORT Study performed: 11/17/2020 11:15:20 EXAM: Comprehensive 2D, Doppler, and color-flow Echocardiogram Patient Location: In-Patient Room #: 006 Status: routine BSA: 2.17 HR: 66 bpm BP: 140/67 mmHg Rhythm: NSR Other Information Study Quality: Adequate Indications hypoxia 2D Dimensions IVSd: 12.37 (7-11mm) LVOT Diam: 18.68 (18-24mm) LVDd: 46.35 mm PWd: 10.59 (7-11mm) Ascending Ao: 29.35 (22-36mm) LVDs: 27.63 (25-40mm) Aortic Root: 30.58 mm Volumes Left Atrial Volume (Systole) LA ESV Index: 35.50 mL/m2 Aortic Valve AoV Peak Eber.: 1.44 m/s AO Peak Gr.: 8.25 mmHg LVOT Max P.05 mmHg AO Mean Gr.: 4.86 mmHg LVOT Mean P.07 mmHg LVOT Max V: 1.33 m/s AO V2 VTI: 28.72 cm LVOT Mean V: 0.79 m/s SAMANTHA (VTI): 2.49 cm2 LVOT V1 VTI: 26.15 [place] [address] 2 D/M-MODE ECHOCARDIOGRAM Name: LEILA ANAND Room: [address] IN .R.#: [id number] Admission: 11/15/20 Attend Phys: Melissa Lawrence MD Discharge: Date of : 58 Date of Service: 11/17/20 1458 Report #: [id number] Mitral Valve E/A Ratio: 1.47 MV Decel. Time: 203.05 ms MV E Max Eber.: 1.10 m/s MV PHT: 58.88 ms MVA (PHT): 3.74 cm2 TDI E/Lateral E': 12.22 E/Medial E': 13.75 Medial E' Eber.: 0.08 m/s Lateral E' Eber.: 0.09 m/s Pulmonary Valve PV Peak Eber.: 0.97 m/s PV Peak Gr.: 3.78 mmHg Tricuspid Valve RAP Estimate: 5.00 mmHg TR Peak Gr.: 27.62 mmHg RVSP: 32.00 mmHg PA Pressure: 32.00 mmHg Left Ventricle The left ventricle is normal size. There is normal LV segmental wall motion. Borderline concentric left ventricular hypertrophy. Left ventricular systolic function is normal. The left ventricular ejection fraction is within the normal range. LVEF is 55-60%. The left ventricular diastolic function is normal. Right Ventricle The right ventricle is normal size. The right ventricular systolic function is normal. Atria The left atrium size is normal. The right atrium size is normal. Aortic Valve The aortic valve is normal in structure. No aortic regurgitation is present. There is no aortic valvular stenosis. Mitral Valve The mitral valve is normal in structure. Mild mitral regurgitation. No evidence of mitral valve stenosis. Tricuspid Valve The tricuspid valve is normal in structure. Trace tricuspid regurgitation. [place] [address] 2 D/M-MODE ECHOCARDIOGRAM Name: LEILA ANAND Room: [address] IN .#: [id number] Admission: 11/15/20 Attend Phys: Melissa Lawrence MD Discharge: Date of : 58 Date of Service: 11/17/20 1458 Report #: [id number] Pulmonic Valve The pulmonary valve is normal in structure. Mild pulmonic regurgitation. Great Vessels The aortic root is normal in size. IVC is normal in size and collapses >50% with inspiration. Pericardium There is no pericardial effusion. <Conclusion> Borderline concentric left ventricular hypertrophy. Left ventricular systolic function is normal. The left ventricular ejection fraction is within the normal range. LVEF is 55-60%. The left ventricular diastolic function is normal. The right ventricle is normal size. The left atrium size is normal. The aortic valve is normal in structure. The mitral valve is normal in structure. Mild mitral regurgitation. The tricuspid valve is normal in structure. Trace tricuspid regurgitation. Mild pulmonary hypertension. IVC is normal in size and collapses >50% with inspiration. There is no pericardial effusion. There is normal LV segmental wall motion. The left ventricle is normal size. <ELECTRONICALLY SIGNED> By: Adolph Lanza MD, FACC 11/17/20 1458 1458 1458 Adolph Lanza MD, FACC /INF
[2020-11-17 16:53] LABS: CALCIUM 8.9 mg/dL (8.5-10.1); CREATININE 0.8 mg/dL (0.6-1.3)
[2020-11-18] VITALS (48 sets, daily range): BP systolic 126–166; BP diastolic 60–89
[2020-11-18 02:50] LABS: ABSOLUTE LYMPHOCYTES 1.2 thou/uL (0.8-5.3); ABSOLUTE MONOCYTES 0.5 thou/uL (0.0-1.2); ABSOLUTE NEUTROPHILS 6.2 thou/uL (1.6-8.1); BASOPHILS 0.1 %; HEMATOCRIT 35.5 % (37.0-47.0); HEMOGLOBIN 11.2 gm/dL (12.0-15.0); LYMPHOCYTES 14.8 %; MCH 27.1 pg (26.0-34.0); MCHC 31.6 g/dL (28.0-37.0); MCV 85.5 fL (80.0-100.0); MONOCYTES 6.4 %; MPV 7.4 fl. (7.2-11.1); NUCLEATED RBCS 0 /100WBC; PLATELET COUNT* 238 thou/uL (150-400); POLYS 78.7 %; RBC 4.16 mil/uL (4.20-5.00); RDW-CV 15.7 % (10.5-14.5); WBC 7.9 thou/uL (4.0-11.0)
[2020-11-18 03:21] LABS: PHOSPHORUS* 5.3 mg/dL (2.5-4.9)
[2020-11-18 05:48] LABS: ALBUMIN 2.9 g/dL (3.4-5.0); CALCIUM 8.5 mg/dL (8.5-10.1); CREATININE 0.8 mg/dL (0.6-1.3); MAGNESIUM 1.9 mg/dL (1.8-2.4); TOTAL BILIRUBIN 0.3 mg/dL (<0.1-1.0); TOTAL PROTEIN 6.8 g/dL (6.4-8.2)
[2020-11-18 08:29] LABS: BE 2.8 mmol/L (-2 to +3); PCO2 46.7 mmHg (35.0-45.0); PO2 74.3 mmHg (75.0-100.0); pH 7.399 (7.340-7.450)
[2020-11-19] VITALS (43 sets, daily range): BP systolic 122–195; BP diastolic 42–106
[2020-11-19 04:12] LABS: ABSOLUTE LYMPHOCYTES 1.4 thou/uL (0.8-5.3); ABSOLUTE MONOCYTES 0.5 thou/uL (0.0-1.2); ABSOLUTE NEUTROPHILS 7.2 thou/uL (1.6-8.1); BASOPHILS 0.3 %; HEMATOCRIT 36.9 % (37.0-47.0); HEMOGLOBIN 11.9 gm/dL (12.0-15.0); LYMPHOCYTES 15.4 %; MCH 27.3 pg (26.0-34.0); MCHC 32.2 g/dL (28.0-37.0); MCV 84.9 fL (80.0-100.0); MONOCYTES 5.5 %; MPV 7.5 fl. (7.2-11.1); NUCLEATED RBCS 0 /100WBC; PLATELET COUNT* 235 thou/uL (150-400); POLYS 78.8 %; RBC 4.34 mil/uL (4.20-5.00); RDW-CV 15.2 % (10.5-14.5); WBC 9.2 thou/uL (4.0-11.0)
[2020-11-19 04:33] LABS: PHOSPHORUS* 3.8 mg/dL (2.5-4.9)
[2020-11-19 04:36] LABS: ALBUMIN 2.7 g/dL (3.4-5.0); CALCIUM 8.3 mg/dL (8.5-10.1); CREATININE 0.7 mg/dL (0.6-1.3); MAGNESIUM 2.3 mg/dL (1.8-2.4); POTASSIUM 3.6 mmol/L (3.5-5.1); TOTAL BILIRUBIN 0.3 mg/dL (<0.1-1.0); TOTAL PROTEIN 6.6 g/dL (6.4-8.2)
[2020-11-19 08:52] LABS: BE 1.1 mmol/L (-2 to +3); PCO2 47.4 mmHg (35.0-45.0); PO2 73.5 mmHg (75.0-100.0); pH 7.372 (7.340-7.450)
[2020-11-20] VITALS (39 sets, daily range): BP systolic 127–189; BP diastolic 47–101
[2020-11-20 02:06] LABS: MYCOPLASMA PNEUMONIA IgG <100 U/mL (0-99); MYCOPLASMA PNEUMONIA IgM <770 U/mL (0-769)
[2020-11-20 06:42] LABS: ABSOLUTE EOSINOPHILS 0.2 thou/uL (0.0-0.7); ABSOLUTE LYMPHOCYTES 2.8 thou/uL (0.8-5.3); ABSOLUTE MONOCYTES 0.9 thou/uL (0.0-1.2); ABSOLUTE NEUTROPHILS 6.7 thou/uL (1.6-8.1); BASOPHILS 0.2 %; EOSINOPHILS 1.4 %; HEMATOCRIT 38.2 % (37.0-47.0); HEMOGLOBIN 12.2 gm/dL (12.0-15.0); LYMPHOCYTES 26.5 %; MCH 26.6 pg (26.0-34.0); MCHC 31.8 g/dL (28.0-37.0); MCV 83.5 fL (80.0-100.0); MONOCYTES 8.5 %; MPV 7.3 fl. (7.2-11.1); NUCLEATED RBCS 0 /100WBC; PLATELET COUNT* 258 thou/uL (150-400); POLYS 63.4 %; RBC 4.57 mil/uL (4.20-5.00); RDW-CV 14.9 % (10.5-14.5); WBC 10.5 thou/uL (4.0-11.0)
[2020-11-20 06:51] LABS: ALBUMIN 2.8 g/dL (3.4-5.0); CALCIUM 8.6 mg/dL (8.5-10.1); CREATININE 0.7 mg/dL (0.6-1.3); TOTAL BILIRUBIN 0.6 mg/dL (<0.1-1.0); TOTAL PROTEIN 6.5 g/dL (6.4-8.2)
[2020-11-20 06:53] LABS: POTASSIUM 2.9 mmol/L (3.5-5.1)
[2020-11-20 20:16] LABS: CALCIUM 8.8 mg/dL (8.5-10.1); CREATININE 0.7 mg/dL (0.6-1.3); MAGNESIUM 2.1 mg/dL (1.8-2.4)
[2020-11-20 20:18] LABS: POTASSIUM 3.9 mmol/L (3.5-5.1)
[2020-11-21 01:50] VITALS: BP 164/65
[2020-11-21 05:20] LABS: ABSOLUTE EOSINOPHILS 0.4 thou/uL (0.0-0.7); ABSOLUTE LYMPHOCYTES 3.3 thou/uL (0.8-5.3); ABSOLUTE MONOCYTES 0.8 thou/uL (0.0-1.2); ABSOLUTE NEUTROPHILS 6.6 thou/uL (1.6-8.1); BASOPHILS 0.3 %; EOSINOPHILS 3.6 %; HEMATOCRIT 38.1 % (37.0-47.0); HEMOGLOBIN 12.3 gm/dL (12.0-15.0); LYMPHOCYTES 29.8 %; MCHC 32.2 g/dL (28.0-37.0); MCV 83.9 fL (80.0-100.0); MONOCYTES 7.4 %; MPV 7.3 fl. (7.2-11.1); NUCLEATED RBCS 0 /100WBC; PLATELET COUNT* 259 thou/uL (150-400); POLYS 58.9 %; RBC 4.55 mil/uL (4.20-5.00); RDW-CV 14.9 % (10.5-14.5); WBC 11.2 thou/uL (4.0-11.0)
[2020-11-21 05:38] LABS: ALBUMIN 2.8 g/dL (3.4-5.0); CALCIUM 8.6 mg/dL (8.5-10.1); CREATININE 0.5 mg/dL (0.6-1.3); MAGNESIUM 2.1 mg/dL (1.8-2.4); POTASSIUM 3.4 mmol/L (3.5-5.1); TOTAL BILIRUBIN 0.4 mg/dL (<0.1-1.0); TOTAL PROTEIN 6.6 g/dL (6.4-8.2)
[2020-11-21 13:00] VITALS: BP 174/85
[2020-11-21 15:54] VITALS: BP 154/77
[2020-11-21 20:15] VITALS: BP 170/80
[2020-11-21 23:54] VITALS: BP 105/48
[2020-11-22 12:00] VITALS: BP 155/77
[2020-11-22 15:56] VITALS: BP 147/72
[2020-11-22 21:00] VITALS: BP 104/62
[2020-11-23 00:18] VITALS: BP 135/58
[2020-11-23 04:00] VITALS: BP 135/52
[2020-11-23 07:30] VITALS: BP 135/76
[2020-11-23 12:00] VITALS: BP 145/72
[2020-11-23 21:00] VITALS: BP 156/73
[2020-11-24] VITALS: BP 131/67
[2020-11-24 04:47] LABS: HEMATOCRIT 37.2 % (37.0-47.0); HEMOGLOBIN 11.9 gm/dL (12.0-15.0); MCH 26.6 pg (26.0-34.0); MCHC 31.8 g/dL (28.0-37.0); MCV 83.4 fL (80.0-100.0); MPV 7.6 fl. (7.2-11.1); RBC 4.46 mil/uL (4.20-5.00); RDW-CV 15.1 % (10.5-14.5); WBC 13.8 thou/uL (4.0-11.0)
[2020-11-24 05:17] LABS: ALBUMIN 2.8 g/dL (3.4-5.0); CALCIUM 8.9 mg/dL (8.5-10.1); CREATININE 0.9 mg/dL (0.6-1.3); MAGNESIUM 1.6 mg/dL (1.8-2.4); POTASSIUM 3.5 mmol/L (3.5-5.1); TOTAL BILIRUBIN 0.3 mg/dL (<0.1-1.0); TOTAL PROTEIN 6.5 g/dL (6.4-8.2)
[2020-11-24 08:00] VITALS: BP 148/57
[2020-11-24] MEDS ORDERED: PREDNISONE 10 M10 MG PO (09:56)
[2020-11-24] MEDS ORDERED: PEPCID20 MG PO (09:56)
[2020-11-24 16:13] VITALS: BP 153/66
[2020-11-24 20:00] VITALS: BP 156/85
[2020-11-25 00:39] VITALS: BP 147/44
[2020-11-25 13:14] VITALS: BP 151/70
[2020-11-25 18:35] VITALS: BP 151/70
== END 2020-11-25 18:50 | DRG 871 ==
LOC: M.ERS 18:01 → M.2W 18:43 → M.ICU 18:43 → M.TBA-ER 18:43 → M.ICU 22:26 → M.2W 11-20 22:02
PROVIDERS: Family Medicine; Internal Medicine; Internal Medicine Critical Care Medicine; Pediatrics; ADMIT Family Medicine; ATTEND Family Medicine
DX: A41.9 Sepsis, unspecified organism (principal); J96.21 Acute and chronic respiratory failure with hypoxia; J96.22 Acute and chronic respiratory failure with hypercapnia; I50.33 Acute on chronic diastolic (congestive) heart failure; J15.6 Pneumonia due to other Gram-negative bacteria; J44.1 Chronic obstructive pulmonary disease with (acute) exacerbation; Z68.42 Body mass index [BMI] 45.0-49.9, adult; J44.0 Chronic obstructive pulmonary disease with (acute) lower respiratory infection; E66.2 Morbid (severe) obesity with alveolar hypoventilation; I11.0 Hypertensive heart disease with heart failure; E78.00 Pure hypercholesterolemia, unspecified; E11.65 Type 2 diabetes mellitus with hyperglycemia; R14.0 Abdominal distension (gaseous); E11.9 Type 2 diabetes mellitus without complications; K75.81 Nonalcoholic steatohepatitis (NASH); Z20.822 Contact with and (suspected) exposure to COVID-19; Z95.5 Presence of coronary angioplasty implant and graft; Z90.49 Acquired absence of other specified parts of digestive tract; Z79.4 Long term (current) use of insulin; Z79.82 Long term (current) use of aspirin; Z79.899 Other long term (current) drug therapy

== ENCOUNTER 2020-11-25 15:31 | Inpatient (IN) | payer MEDICAID ==
[~2020-11-25] VITALS: Ht 157.5 cm; Wt 121.9 kg
[~2020-11-25 15:31] MED LIST changes: +PEPCID20 MG PO
[2020-11-25 19:10] VITALS: BP 136/64
[2020-11-26 05:07] LABS: HEMOGLOBIN 11.5 gm/dL (12.0-15.0); MCH 26.8 pg (26.0-34.0); MCV 83.8 fL (80.0-100.0); MPV 7.2 fl. (7.2-11.1); RBC 4.3 mil/uL (4.20-5.00); RDW-CV 14.8 % (10.5-14.5)
[2020-11-26 05:38] LABS: CALCIUM 8.4 mg/dL (8.5-10.1); CREATININE 0.8 mg/dL (0.6-1.3); POTASSIUM 4.2 mmol/L (3.5-5.1)
[2020-11-26 19:00] VITALS: BP 143/49
[2020-11-27 07:44] VITALS: BP 163/55
[2020-11-27 19:40] VITALS: BP 152/59
[2020-11-28 04:16] LABS: HEMATOCRIT 36.6 % (37.0-47.0); HEMOGLOBIN 11.8 gm/dL (12.0-15.0); MCH 27.2 pg (26.0-34.0); MCHC 32.3 g/dL (28.0-37.0); MCV 84.2 fL (80.0-100.0); MPV 7.2 fl. (7.2-11.1); RBC 4.35 mil/uL (4.20-5.00); WBC 11.8 thou/uL (4.0-11.0)
[2020-11-28 04:41] LABS: ALBUMIN 2.9 g/dL (3.4-5.0); CALCIUM 9.2 mg/dL (8.5-10.1); CREATININE 0.7 mg/dL (0.6-1.3); POTASSIUM 3.8 mmol/L (3.5-5.1); TOTAL BILIRUBIN 0.2 mg/dL (<0.1-1.0); TOTAL PROTEIN 6.5 g/dL (6.4-8.2)
[2020-11-28 07:30] VITALS: BP 162/76
[2020-11-28 08:00] VITALS: BP 162/76
[2020-11-28 20:00] VITALS: BP 150/61
[2020-11-29 07:58] VITALS: BP 146/53
[2020-11-29 20:00] VITALS: BP 167/51
[2020-11-30 20:00] VITALS: BP 171/73
[2020-12-01] MEDS ORDERED: BROVANA15 MCG/2 M INH (08:56)
[2020-12-01] MEDS ORDERED: LANTUS100 UNIT/M SUBQ (08:56)
[2020-12-01] MEDS ORDERED: PREDNISONE 10 M10 M1 PO (08:56)
[2020-12-01 09:40] VITALS: BP 155/62
[2020-12-01 20:00] VITALS: BP 153/73
[2020-12-02 07:44] VITALS: BP 132/49
[2020-12-02 20:00] VITALS: BP 143/59
[2020-12-03 04:48] LABS: HEMATOCRIT 35.3 % (37.0-47.0); HEMOGLOBIN 11.1 gm/dL (12.0-15.0); MCH 26.9 pg (26.0-34.0); MCHC 31.6 g/dL (28.0-37.0); MCV 85.3 fL (80.0-100.0); MPV 7.3 fl. (7.2-11.1); RBC 4.14 mil/uL (4.20-5.00)
[2020-12-03 05:29] LABS: CALCIUM 9.3 mg/dL (8.5-10.1); CREATININE 0.7 mg/dL (0.6-1.3); POTASSIUM 4.6 mmol/L (3.5-5.1)
[2020-12-03 07:40] VITALS: BP 160/70
[2020-12-03 20:00] VITALS: BP 135/63
[2020-12-04 08:00] VITALS: BP 119/56
[2020-12-04] MEDS ORDERED: PREDNISONE 10 M10 MG PO (10:36)
[2020-12-04 20:00] VITALS: BP 146/54
[2020-12-05 07:47] VITALS: BP 138/53
[2020-12-05 12:32] VITALS: BP 138/53
[2020-12-05 13:31] VITALS: BP 138/53
[2020-12-06] MEDS ORDERED: PREDNISONE 10 M10 M1 PO (09:25)
[2020-12-06] MEDS ORDERED: ALBUTEROL2.5 MG/3 M INH (09:27)
== END 2020-12-05 13:05 | disposition home or self-care (01) | DRG 947 ==
LOC: M.REH 15:31
PROVIDERS: Internal Medicine; ADMIT Physical Medicine & Rehabilitation; ATTEND Physical Medicine & Rehabilitation
PROC: 5A09357 Assistance with Respiratory Ventilation, Less than 24 Consecutive Hours, Continuous Positive Airway Pressure (ICD-10-PCS; principal; 2020-11-25)
PROC: 5A09357 Assistance with Respiratory Ventilation, Less than 24 Consecutive Hours, Continuous Positive Airway Pressure (ICD-10-PCS; 2020-11-26)
PROC: 5A09357 Assistance with Respiratory Ventilation, Less than 24 Consecutive Hours, Continuous Positive Airway Pressure (ICD-10-PCS; 2020-11-28)
PROC: 5A09357 Assistance with Respiratory Ventilation, Less than 24 Consecutive Hours, Continuous Positive Airway Pressure (ICD-10-PCS; 2020-11-29)
PROC: 5A09357 Assistance with Respiratory Ventilation, Less than 24 Consecutive Hours, Continuous Positive Airway Pressure (ICD-10-PCS; 2020-11-30)
PROC: 5A09357 Assistance with Respiratory Ventilation, Less than 24 Consecutive Hours, Continuous Positive Airway Pressure (ICD-10-PCS; 2020-12-01)
PROC: 5A09357 Assistance with Respiratory Ventilation, Less than 24 Consecutive Hours, Continuous Positive Airway Pressure (ICD-10-PCS; 2020-12-02)
PROC: 5A09357 Assistance with Respiratory Ventilation, Less than 24 Consecutive Hours, Continuous Positive Airway Pressure (ICD-10-PCS; 2020-12-03)
PROC: 5A09357 Assistance with Respiratory Ventilation, Less than 24 Consecutive Hours, Continuous Positive Airway Pressure (ICD-10-PCS; 2020-12-04)
DX: R53.81 Other malaise (principal); A41.9 Sepsis, unspecified organism; J96.01 Acute respiratory failure with hypoxia; J15.6 Pneumonia due to other Gram-negative bacteria; J15.8 Pneumonia due to other specified bacteria; J44.1 Chronic obstructive pulmonary disease with (acute) exacerbation; I50.32 Chronic diastolic (congestive) heart failure; E66.2 Morbid (severe) obesity with alveolar hypoventilation; Z68.42 Body mass index [BMI] 45.0-49.9, adult; E11.65 Type 2 diabetes mellitus with hyperglycemia; E78.00 Pure hypercholesterolemia, unspecified; I25.10 Atherosclerotic heart disease of native coronary artery without angina pectoris; K75.81 Nonalcoholic steatohepatitis (NASH); Z99.81 Dependence on supplemental oxygen; Z79.899 Other long term (current) drug therapy; Z79.4 Long term (current) use of insulin; Z79.82 Long term (current) use of aspirin; Z95.5 Presence of coronary angioplasty implant and graft

== ENCOUNTER 2020-12-17 21:25 | Emergency (ER) | payer MEDICAID ==
[~2020-12-17] VITALS: Ht 157.5 cm; Wt 119.8 kg
[2020-12-17 22:04] LABS: ABSOLUTE BASOPHILS 0.1 thou/uL (0.0-0.2); ABSOLUTE EOSINOPHILS 0.2 thou/uL (0.0-0.7); ABSOLUTE MONOCYTES 0.7 thou/uL (0.0-1.2); ABSOLUTE NEUTROPHILS 6.7 thou/uL (1.6-8.1); EOSINOPHILS 1.6 %; HEMATOCRIT 36.4 % (37.0-47.0); HEMOGLOBIN 11.5 gm/dL (12.0-15.0); LYMPHOCYTES 28.1 %; MCHC 31.5 g/dL (28.0-37.0); MCV 85.7 fL (80.0-100.0); MONOCYTES 6.7 %; MPV 7.3 fl. (7.2-11.1); NUCLEATED RBCS 0 /100WBC; PLATELET COUNT* 290 thou/uL (150-400); POLYS 62.6 %; RBC 4.25 mil/uL (4.20-5.00); RDW-CV 15.1 % (10.5-14.5); WBC 10.7 thou/uL (4.0-11.0)
[2020-12-17 22:14] LABS: CALCIUM 8.1 mg/dL (8.5-10.1); POTASSIUM 4.2 mmol/L (3.5-5.1); PROTIME 10.7 Seconds (9.20-11.50)
[2020-12-17 22:22] LABS: ALBUMIN 2.9 g/dL (3.4-5.0); TOTAL BILIRUBIN 0.3 mg/dL (<0.1-1.0); TOTAL PROTEIN 7.5 g/dL (6.4-8.2)
[2020-12-18 00:20] LABS: URINE BILIRUBIN NEGATIVE (Negative); URINE BLOOD NEGATIVE (Negative); URINE CLARITY SL CLOUDY; URINE COLOR YELLOW; URINE GLUCOSE-RANDOM 3+ (Negative); URINE KETONES NEGATIVE (Negative); URINE LEUKOCYTES-REFLEX NEGATIVE (Negative); URINE NITRITE-REFLEX POSITIVE (Negative); URINE PROTEIN NEGATIVE (Negative); URINE UROBILINOGEN 0.2 E.U./dl (0.2-1.0)
[2020-12-18 00:27] LABS: SQUAMOUS 0-3 Few /LPF (0-3); WBC CLUMPS Moderate (None Seen)
[2020-12-18 00:28] LABS: BACTERIA-REFLEX >30 Many /HPF (None Seen); CASTS None Seen /LPF (None Seen); CRYSTALS None Seen /LPF (None Seen); MUCUS 4-6 Moderate strn/LPF (None Seen); URINE RBC 3-10 Few /HPF (0-2); URINE WBC-REFLEX >25 Many /HPF (0-5)
[2020-12-18 00:32] LABS: BE 3.9 mmol/L (-2 to +3); PO2 82.2 mmHg (75.0-100.0)
[2020-12-18 00:36] LABS: PCO2 53.7 mmHg (35.0-45.0)
[2020-12-18] MEDS ORDERED: AUGMENTIN 875-1 EACH PO (00:55)
[2020-12-18 01:25] VITALS: BP 127/65
--- NOTE | 2020-12-18 09:44 | EKG ---
[place] [address] ELECTROCARDIOGRAM REPORT Name: LEILA ANAND Amanda Room: [facility]#: [id number] Admission: 12/17/20 Attend Phys: Discharge: 12/18/20 Date of : 58 Date of Service: 12/17/202139 Report #: [id number] THIS REPORT FOR: //name// [facility] ED Test Date: 2020-12-17 Test Time: 21:40:31 Pat Name: LEILA ANAND Department: Room: Gender: F Computer Terminal Operator: MR : 1960 Requested By: Trista Avila Order Number: [id number] MD: Romario Simeon Measurements Intervals [place] Rate: 89 P: 68 [place]: 157 QRS: -26 QRSD: 78 T: 93 QT: 371 QTc: 452 Interpretive Statements Sinus rhythm Borderline left axis deviation Compared to ECG 11/15/2020 18:41:50 Sinus tachycardia no longer present Atrial premature complex(es) no longer present Myocardial infarct finding no longer present Electronically Signed On 12-18-2020 9:44:18 TABLE OPERATOR by Romario Simeon [email or web address] <ELECTRONICALLY SIGNED> By: Romario Simeon MD, FACC 12/18/20 0944 39 39 Romario Simeon MD, FACC /EPI
== END 2020-12-18 01:25 | disposition home or self-care (01) ==
LOC: M.ERS 21:25
PROVIDERS: Emergency Medicine
DX: R06.00 Dyspnea, unspecified (principal); Z20.822 Contact with and (suspected) exposure to COVID-19; J44.9 Chronic obstructive pulmonary disease, unspecified; I11.0 Hypertensive heart disease with heart failure; I50.32 Chronic diastolic (congestive) heart failure; E78.00 Pure hypercholesterolemia, unspecified; G47.33 Obstructive sleep apnea (adult) (pediatric); E66.01 Morbid (severe) obesity due to excess calories; Z87.891 Personal history of nicotine dependence; Z98.51 Tubal ligation status; Z90.49 Acquired absence of other specified parts of digestive tract; Z68.42 Body mass index [BMI] 45.0-49.9, adult; Z79.4 Long term (current) use of insulin

== ENCOUNTER 2021-03-07 20:54 | Inpatient (IN) | payer MEDICAID ==
[~2021-03-07] VITALS: Ht 157.5 cm; Wt 128.8 kg
[2021-03-07] MEDS ORDERED: SERTRALINE HCL100 MG PO (21:14)
[2021-03-07 21:23] VITALS: BP 163/67
[2021-03-07 21:33] LABS: ABSOLUTE BASOPHILS 0.1 thou/uL (0.0-0.2); ABSOLUTE EOSINOPHILS 0.4 thou/uL (0.0-0.7); ABSOLUTE LYMPHOCYTES 2.8 thou/uL (0.8-5.3); ABSOLUTE MONOCYTES 0.7 thou/uL (0.0-1.2); ABSOLUTE NEUTROPHILS 6.9 thou/uL (1.6-8.1); BASOPHILS 0.6 %; HEMOGLOBIN 12.4 gm/dL (12.0-15.0); LYMPHOCYTES 25.6 %; MCHC 31.9 g/dL (28.0-37.0); MCV 84.8 fL (80.0-100.0); MONOCYTES 6.1 %; MPV 7.7 fl. (7.2-11.1); NUCLEATED RBCS 0 /100WBC; PLATELET COUNT* 214 thou/uL (150-400); POLYS 63.7 %; RDW-CV 16.3 % (10.5-14.5); WBC 10.9 thou/uL (4.0-11.0)
[2021-03-07 21:40] LABS: CREATININE 0.8 mg/dL (0.6-1.3); INR 0.9; POTASSIUM 4.9 mmol/L (3.5-5.1); PROTIME 10.1 Seconds (9.20-11.50)
[2021-03-07 21:54] LABS: ALBUMIN 3.2 g/dL (3.4-5.0); MAGNESIUM 1.9 mg/dL (1.8-2.4); TOTAL BILIRUBIN 0.5 mg/dL (<0.1-1.0); TOTAL PROTEIN 8.1 g/dL (6.4-8.2)
[2021-03-07 22:24] LABS: BE 7.7 mmol/L (-2 to +3)
[2021-03-07 22:30] LABS: PCO2 89.3 mmHg (35.0-45.0); PO2 236.6 mmHg (75.0-100.0); pH 7.251 (7.340-7.450)
[2021-03-08 01:07] LABS: BE 6.5 mmol/L (-2 to +3); PO2 71.8 mmHg (75.0-100.0)
[2021-03-08 01:09] LABS: PCO2 81.9 mmHg (35.0-45.0); pH 7.264 (7.340-7.450)
[2021-03-08 01:30] VITALS: BP 143/56
[2021-03-08 04:19] VITALS: BP 188/66
[2021-03-08 08:30] VITALS: BP 173/79
[2021-03-08 12:00] VITALS: BP 159/78
[2021-03-08] MEDS ORDERED: CLIMARA1 EAC3 TRANSDERM (13:21)
[2021-03-08 15:57] LABS: CALCIUM 9.9 mg/dL (8.5-10.1); CREATININE 1.3 mg/dL (0.6-1.3); POTASSIUM 4.7 mmol/L (3.5-5.1)
[2021-03-08 19:35] VITALS: BP 146/56
[2021-03-08 23:40] VITALS: BP 129/64
[2021-03-09 04:37] LABS: HEMATOCRIT 36.5 % (37.0-47.0); HEMOGLOBIN 11.7 gm/dL (12.0-15.0); MCH 27.1 pg (26.0-34.0); MCHC 32.1 g/dL (28.0-37.0); MCV 84.5 fL (80.0-100.0); MPV 7.9 fl. (7.2-11.1); NUCLEATED RBCS 0 /100WBC; PLATELET COUNT* 227 thou/uL (150-400); RBC 4.32 mil/uL (4.20-5.00); RDW-CV 16.5 % (10.5-14.5); WBC 10.9 thou/uL (4.0-11.0)
[2021-03-09 04:50] LABS: CALCIUM 9.7 mg/dL (8.5-10.1); CREATININE 0.9 mg/dL (0.6-1.3)
[2021-03-09 04:56] VITALS: BP 154/77
[2021-03-09 05:25] LABS: POTASSIUM 5.7 mmol/L (3.5-5.1)
[2021-03-09 05:46] LABS: ABSOLUTE LYMPHOCYTES 1.1 thou/uL (0.8-5.3); ABSOLUTE MONOCYTES 0.4 thou/uL (0.0-1.2); ABSOLUTE NEUTROPHILS 9.4 thou/uL (1.6-8.1); ANISOCYTOSIS 1+; PLATELET ESTIMATE ADEQUATE; POIKILOCYTOSIS 1+
[2021-03-09 09:29] VITALS: BP 137/60
--- NOTE | 2021-03-09 10:25 | EKG ---
[place] [address] ELECTROCARDIOGRAM REPORT Name: KIKALEILA Room: [address] ADM IN .R.#: [id number] Admission: 03/07/21 Attend Phys: Pipe Fenton, Discharge: Date of : 58 Date of Service: 03/07/212140 Report #: [id number] THIS REPORT FOR: //name// [facility] ED Test Date: 2021-03-07 Test Time: 21:41:28 Pat Name: LEILA ANAND Department: Room: [facility] Gender: F Splunk Architect: HEDY : 1960 Requested By: Trista Avila Order Number: [id number] MD: Clayton Montejo Measurements Intervals [place] Rate: 90 P: 240 DC: 153 QRS: -35 QRSD: 78 T: 47 QT: 379 QTc: 464 Interpretive Statements Sinus or ectopic atrial rhythm late transition Inferior infarct, old Baseline wander in lead(s) I,III,aVR,aVL,V1,V2,V3,V6 Compared to ECG 12/17/2020 21:40:31 Ectopic atrial rhythm now present Electronically Signed On 03-09-2021 10:25:10 CDT by Clayton Montejo [email or web address] <ELECTRONICALLY SIGNED> By: Clayton Montejo MD, [facility] 03/09/21 1025 40 40 Clayton Montejo MD, [facility] /EPI
[2021-03-09 11:40] VITALS: BP 156/62
--- NOTE | 2021-03-09 15:08 | CON ---
[address] [address] CONSULTATION Name: LEILA ANAND Room: [address] IN M.R.#: [id number] Admission: 03/07/21 Attend Phys: Pipe Fenton MD Discharge: Date of : 58 Report #: [id number] THIS REPORT FOR: cc: [facility] - Clinic physician unknown [facility] - Clinic physician unknown Swapnil Brown MD ~ DOC #: [id number] Swapnil Brown MD DATE OF CONSULTATION: 03/08/2021 CONSULTATION REQUESTED BY: Pipe Fenton MD. INDICATION FOR CONSULTATION: Acute on chronic hypoxemic and hypercarbic respiratory failure. HISTORY OF PRESENT ILLNESS: A 61-year-old female, past medical history includes a history of COPD as well as obstructive sleep apnea, obesity hypoventilation syndrome and uncontrolled diabetes. The patient is now admitted with increasing shortness of breath. She has also had a cough. There is not much sputum. There is no chest pain. She does have swelling of lower extremities, does not describe upper respiratory complaints. There is significant hypercarbia as well as a low pH on her arterial blood gases. The patient also has markedly elevated blood glucoses above 500. She has disturbed sleep at night as well as sleepiness during the day. These complaints are at baseline. She has some joint pains but they are at the baseline. REVIEW OF SYSTEMS: The patient's review of systems for 12 points is negative except as mentioned above. PAST MEDICAL HISTORY: Chronic hypoxemic and hypercarbic respiratory failure secondary to COPD, obstructive sleep apnea and obesity hypoventilation syndrome, uncontrolled diabetes, longstanding history of fluid overload where in recent echocardiogram which in fact shows a left ventricular ejection fraction of 55-60% with a pulmonary artery systolic of 32. The patient previously had both a BiPAP as well as Trelegy at home. She in fact returned the Trelegy. She did not like the screen, which is lit at night for Trelegy, also history of hypertension, coronary artery disease, cardiac stents, fatty liver disease, hyperlipidemia, hypothyroidism. PAST SURGICAL HISTORY: Appendectomy, tubal ligation and hormonal therapy with implants, PATRICK. SOCIAL HISTORY: There is an extensive history of smoking, has now discontinued. No known history of heavy alcohol [place] [address] CONSULTATION Name: ELILA ANAND Room: [address]#: [id number] Admission: 03/07/21 Attend Phys: Pipe Fenton MD Discharge: Date of : 58 Report #: [id number] CURRENT MEDICATIONS: List in Drive [employer] reviewed. HOME MEDICATION: Also list in Drive [employer] reviewed. ALLERGIES: No known drug allergies. FAMILY HISTORY: There is no pertinent family history. PHYSICAL EXAMINATION: GENERAL: She is alert, awake and oriented, did not appear to be in any distress at the time of my evaluation this afternoon. VITAL SIGNS: Had a pulse of 99 and a blood pressure of 159/78, saturating around 94%. She was on 10 liters oxygen via nasal cannula. She is morbidly obese, body mass index is 51. HEENT: Head is normocephalic and atraumatic. Pupils are equal and reactive. There is no throat erythema. Narrow airway. NECK: Does not show raised JVP, asymmetry, mass or lymph nodes. CHEST: Symmetrical expansion on inspection and palpation. On auscultation, breath sounds are bilaterally equal, but decreased. Expirations are prolonged. No added sounds. HEART: Regular. There is no murmur. ABDOMEN: Mildly distended, nontender. EXTREMITIES: Lower extremities do show 2+ edema, no calf tenderness. SKIN: Dry and intact. NEUROLOGIC: Moves all extremities bilaterally equally and spontaneously with no focal deficits identified. LABORATORY DATA: The patient's CTA chest is reviewed. In summary, there are changes consistent with COPD. There is some atelectasis and there may be some mild increase in pulmonary vascular congestion as well. I do not see any obvious infiltrates. The patient's arterial blood gases showing acute on chronic hypercarbic respiratory failure in [facility] reviewed. Lab work in [facility] reviewed. I repeated labs, creatinine in fact increased from 0.8 yesterday to 1.3 now. ASSESSMENT AND PLAN: 1. Acute on chronic hypoxic and hypercarbic respiratory failure, primarily this is secondary to chronic obstructive pulmonary disease exacerbation, obesity hypoventilation syndrome and sleep apnea. She also does appear to be fluid overloaded. I do not see any obvious infiltrate on her CT. We will go ahead and place her on AVAPS via BiPAP tonight and follow response. Titrate oxygen. She unfortunately returned the Trelegy and kept the BiPAP. We will check with the senior case manager regarding whether there will be a feasibility of switching her back to a Trelegy. She can keep the Trelegy skin covered if she does not like [address] [place] [address] CONSULTATION Name: LEILA ANAND Room: [address] IN M.R.#: [id number] Admission: 03/07/21 Attend Phys: Pipe Fenton MD Discharge: Date of : 58 Report #: [id number] the light from it. 2. Chronic obstructive pulmonary disease exacerbation. We will continue with Solu-Medrol as well as nebulizer. I later added budesonide. We will see if we can cut down the dose of the steroids soon as glucose is markedly elevated. For now, I continued with ceftriaxone as well; however, I do not see any obvious sign of pneumonia. 3. Obstructive sleep apnea and obesity hypoventilation syndrome. See discussion as above. 4. Fluid overload/past medical history of acute renal failure. She got IV dye yesterday with a rise in creatinine. Therefore, I did not give additional Lasix. We will need to watch this very closely. She does appear to be fluid overloaded overall and this does appear to be contributing to her respiratory failure. 5. Uncontrolled diabetes. Recommend increasing insulin to reach blood glucose as less than 200. If unable to give subcutaneous insulin, then recommend considering an insulin drip. 6. Evaluation for thromboembolic phenomena. No PE on CTA chest. I would like to do venous Dopplers as well. D-dimer was elevated. 7. Deep venous thrombosis prophylaxis, on Lovenox. Thanks for this consultation. MD JOANN Mckay/BEVERLY <ELECTRONICALLY SIGNED> By: Swapnil Brown MD 03/09/21 1508 2045 0049Alobito Brown MD /sandy
[2021-03-09 19:30] VITALS: BP 137/61
[2021-03-09 23:46] VITALS: BP 129/59
[2021-03-10 04:33] LABS: HEMATOCRIT 38.2 % (37.0-47.0); MCH 26.3 pg (26.0-34.0); MCHC 31.3 g/dL (28.0-37.0); MPV 7.7 fl. (7.2-11.1); RBC 4.55 mil/uL (4.20-5.00); RDW-CV 16.7 % (10.5-14.5); WBC 15.7 thou/uL (4.0-11.0)
[2021-03-10 04:34] VITALS: BP 139/73
[2021-03-10 04:49] LABS: ALBUMIN 3.5 g/dL (3.4-5.0); CALCIUM 9.6 mg/dL (8.5-10.1); MAGNESIUM 2.3 mg/dL (1.8-2.4); TOTAL BILIRUBIN 0.3 mg/dL (<0.1-1.0); TOTAL PROTEIN 8.2 g/dL (6.4-8.2)
[2021-03-10 08:00] VITALS: BP 158/82
[2021-03-10 10:21] LABS: BE 9.4 mmol/L (-2 to +3); PO2 66.4 mmHg (75.0-100.0); pH 7.349 (7.340-7.450)
[2021-03-10 10:33] LABS: PCO2 70.2 mmHg (35.0-45.0)
[2021-03-10 12:00] VITALS: BP 176/75
[2021-03-10 16:00] VITALS: BP 149/65
[2021-03-10 19:40] VITALS: BP 150/74
[2021-03-10 23:55] VITALS: BP 114/50
[2021-03-11 03:30] VITALS: BP 131/77
[2021-03-11 04:46] LABS: HEMATOCRIT 38.4 % (37.0-47.0); HEMOGLOBIN 11.9 gm/dL (12.0-15.0); MCH 26.3 pg (26.0-34.0); MCHC 31.1 g/dL (28.0-37.0); MCV 84.5 fL (80.0-100.0); MPV 7.8 fl. (7.2-11.1); RBC 4.54 mil/uL (4.20-5.00); RDW-CV 16.3 % (10.5-14.5); WBC 12.8 thou/uL (4.0-11.0)
[2021-03-11 05:04] LABS: ALBUMIN 3.2 g/dL (3.4-5.0); CALCIUM 8.6 mg/dL (8.5-10.1); MAGNESIUM 2.2 mg/dL (1.8-2.4); POTASSIUM 4.2 mmol/L (3.5-5.1); TOTAL BILIRUBIN 0.3 mg/dL (<0.1-1.0); TOTAL PROTEIN 7.8 g/dL (6.4-8.2)
[2021-03-11 08:00] VITALS: BP 145/64
[2021-03-11 11:42] VITALS: BP 141/62
[2021-03-11 16:58] VITALS: BP 154/55
[2021-03-11 20:00] VITALS: BP 141/73
[2021-03-12 00:05] VITALS: BP 136/64
[2021-03-12 04:23] LABS: ABSOLUTE LYMPHOCYTES 3.5 thou/uL (0.8-5.3); ABSOLUTE MONOCYTES 1.1 thou/uL (0.0-1.2); ABSOLUTE NEUTROPHILS 8.4 thou/uL (1.6-8.1); BASOPHILS 0.2 %; EOSINOPHILS 0.1 %; HEMATOCRIT 35.8 % (37.0-47.0); HEMOGLOBIN 11.5 gm/dL (12.0-15.0); LYMPHOCYTES 26.9 %; MCH 26.6 pg (26.0-34.0); MCHC 32.3 g/dL (28.0-37.0); MCV 82.5 fL (80.0-100.0); MONOCYTES 8.6 %; MPV 7.6 fl. (7.2-11.1); NUCLEATED RBCS 0 /100WBC; PLATELET COUNT* 247 thou/uL (150-400); POLYS 64.2 %; RBC 4.33 mil/uL (4.20-5.00); RDW-CV 16.2 % (10.5-14.5)
[2021-03-12 04:24] VITALS: BP 144/76
[2021-03-12 04:43] LABS: ALBUMIN 3.2 g/dL (3.4-5.0); CALCIUM 8.3 mg/dL (8.5-10.1); CREATININE 0.9 mg/dL (0.6-1.3); MAGNESIUM 2.3 mg/dL (1.8-2.4); POTASSIUM 4.3 mmol/L (3.5-5.1); TOTAL BILIRUBIN 0.2 mg/dL (<0.1-1.0)
[2021-03-12 07:45] LABS: BE 9.2 mmol/L (-2 to +3); pH 7.324 (7.340-7.450)
[2021-03-12 07:50] LABS: PCO2 75.1 mmHg (35.0-45.0)
[2021-03-12 08:00] VITALS: BP 142/77
[2021-03-13] VITALS: BP 159/75
[2021-03-13 04:00] VITALS: BP 163/66
[2021-03-13 05:19] LABS: CALCIUM 8.8 mg/dL (8.5-10.1); CREATININE 0.8 mg/dL (0.6-1.3); MAGNESIUM 2.2 mg/dL (1.8-2.4); POTASSIUM 3.7 mmol/L (3.5-5.1)
[2021-03-13 08:00] VITALS: BP 110/68
[2021-03-13 12:00] VITALS: BP 161/76
[2021-03-13 16:00] VITALS: BP 165/46
[2021-03-13 20:44] VITALS: BP 155/71
[2021-03-14 00:45] VITALS: BP 148/68
[2021-03-14 04:58] VITALS: BP 150/60
[2021-03-14 05:53] LABS: HEMATOCRIT 37.1 % (37.0-47.0); HEMOGLOBIN 11.8 gm/dL (12.0-15.0); MCH 26.5 pg (26.0-34.0); MCHC 31.7 g/dL (28.0-37.0); MCV 83.8 fL (80.0-100.0); MPV 7.6 fl. (7.2-11.1); RBC 4.43 mil/uL (4.20-5.00); RDW-CV 16.3 % (10.5-14.5); WBC 18.9 thou/uL (4.0-11.0)
[2021-03-14 06:14] LABS: ALBUMIN 3.3 g/dL (3.4-5.0); CALCIUM 8.9 mg/dL (8.5-10.1); CREATININE 0.9 mg/dL (0.6-1.3); MAGNESIUM 2.2 mg/dL (1.8-2.4); POTASSIUM 4.2 mmol/L (3.5-5.1); TOTAL BILIRUBIN 0.2 mg/dL (<0.1-1.0); TOTAL PROTEIN 7.3 g/dL (6.4-8.2)
[2021-03-14 08:25] VITALS: BP 185/71
[2021-03-14] MEDS ORDERED: PREDNISONE 20 M20 MG PO (08:43)
[2021-03-14] MEDS ORDERED: MYSOLINE50 MG PO (08:43)
[2021-03-14] MEDS ORDERED: SPIRONOLACTONE25 MG PO (08:43)
[2021-03-14 12:00] VITALS: BP 154/76
[2021-03-14 16:00] VITALS: BP 132/61
[2021-03-14 21:13] LABS: BE 6.1 mmol/L (-2 to +3); PO2 70.5 mmHg (75.0-100.0)
[2021-03-14 21:25] LABS: PCO2 58.6 mmHg (35.0-45.0)
[2021-03-15 00:07] VITALS: BP 141/70
[2021-03-15 04:05] VITALS: BP 146/64
[2021-03-15 08:15] VITALS: BP 159/65
[2021-03-15 11:18] LABS: HEMATOCRIT 37.5 % (37.0-47.0); HEMOGLOBIN 11.9 gm/dL (12.0-15.0); MCHC 31.7 g/dL (28.0-37.0); MCV 85.2 fL (80.0-100.0); RBC 4.4 mil/uL (4.20-5.00); RDW-CV 16.9 % (10.5-14.5); WBC 15.3 thou/uL (4.0-11.0)
[2021-03-15 11:36] LABS: CALCIUM 8.7 mg/dL (8.5-10.1); POTASSIUM 4.8 mmol/L (3.5-5.1)
[2021-03-15 12:00] VITALS: BP 147/60
[2021-03-15 16:00] VITALS: BP 141/65
[2021-03-15 20:00] VITALS: BP 124/54
[2021-03-16] VITALS: BP 140/64
[2021-03-16 04:00] VITALS: BP 118/67
[2021-03-16 04:49] LABS: HEMATOCRIT 35.9 % (37.0-47.0); HEMOGLOBIN 11.4 gm/dL (12.0-15.0); MCH 26.4 pg (26.0-34.0); MCHC 31.8 g/dL (28.0-37.0); MCV 83.1 fL (80.0-100.0); MPV 7.9 fl. (7.2-11.1); RBC 4.32 mil/uL (4.20-5.00); RDW-CV 16.6 % (10.5-14.5); WBC 15.2 thou/uL (4.0-11.0)
[2021-03-16 04:50] LABS: ALBUMIN 3.1 g/dL (3.4-5.0); ALKALINE PHOSPHATASE 151 U/L (46-116); ANION GAP 4 mmol/L (7-16); BUN 58 mg/dL (7-18); CALCIUM 9.1 mg/dL (8.5-10.1); CHLORIDE 95 mmol/L (98-107); CO2 33 mmol/L (21-32); CREATININE 1.1 mg/dL (0.6-1.3); GLUCOSE 357 mg/dL (70-99); MAGNESIUM 2.6 mg/dL (1.8-2.4); POTASSIUM 4.6 mmol/L (3.5-5.1); SGOT < 5 U/L (15-37); SGPT 31 U/L (30-65); SODIUM 132 mmol/L (136-145); TOTAL BILIRUBIN 0.3 mg/dL (<0.1-1.0); TOTAL PROTEIN 7.4 g/dL (6.4-8.2)
[2021-03-16 08:00] VITALS: BP 152/62
[2021-03-16] MEDS ORDERED: MYSOLINE50 MG PO (09:10)
[2021-03-16 11:02] VITALS: BP 152/62
== END 2021-03-16 12:19 | disposition home or self-care (01) | DRG 189 ==
LOC: M.ERS 20:54 → M.TBA-ER 23:24 → M.2W 23:24
PROVIDERS: Emergency Medicine; Family Medicine; Internal Medicine; Internal Medicine Critical Care Medicine; ADMIT Internal Medicine; ATTEND Internal Medicine
PROC: 5A09357 Assistance with Respiratory Ventilation, Less than 24 Consecutive Hours, Continuous Positive Airway Pressure (ICD-10-PCS; principal; 2021-03-08)
PROC: 5A0935A Assistance with Respiratory Ventilation, Less than 24 Consecutive Hours, High Flow/Velocity Cannula (ICD-10-PCS; principal; 2021-03-08)
PROC: 5A0935A Assistance with Respiratory Ventilation, Less than 24 Consecutive Hours, High Flow/Velocity Cannula (ICD-10-PCS; 2021-03-09)
PROC: 5A09357 Assistance with Respiratory Ventilation, Less than 24 Consecutive Hours, Continuous Positive Airway Pressure (ICD-10-PCS; 2021-03-09)
PROC: 5A09357 Assistance with Respiratory Ventilation, Less than 24 Consecutive Hours, Continuous Positive Airway Pressure (ICD-10-PCS; 2021-03-10)
PROC: 5A0935A Assistance with Respiratory Ventilation, Less than 24 Consecutive Hours, High Flow/Velocity Cannula (ICD-10-PCS; 2021-03-10)
PROC: 5A0935A Assistance with Respiratory Ventilation, Less than 24 Consecutive Hours, High Flow/Velocity Cannula (ICD-10-PCS; 2021-03-11)
PROC: 5A09357 Assistance with Respiratory Ventilation, Less than 24 Consecutive Hours, Continuous Positive Airway Pressure (ICD-10-PCS; 2021-03-11)
PROC: 5A09357 Assistance with Respiratory Ventilation, Less than 24 Consecutive Hours, Continuous Positive Airway Pressure (ICD-10-PCS; 2021-03-12)
PROC: 5A0935A Assistance with Respiratory Ventilation, Less than 24 Consecutive Hours, High Flow/Velocity Cannula (ICD-10-PCS; 2021-03-12)
PROC: 5A09357 Assistance with Respiratory Ventilation, Less than 24 Consecutive Hours, Continuous Positive Airway Pressure (ICD-10-PCS; 2021-03-13)
PROC: 5A0935A Assistance with Respiratory Ventilation, Less than 24 Consecutive Hours, High Flow/Velocity Cannula (ICD-10-PCS; 2021-03-13)
PROC: 5A09357 Assistance with Respiratory Ventilation, Less than 24 Consecutive Hours, Continuous Positive Airway Pressure (ICD-10-PCS; 2021-03-14)
PROC: 5A0935A Assistance with Respiratory Ventilation, Less than 24 Consecutive Hours, High Flow/Velocity Cannula (ICD-10-PCS; 2021-03-14)
PROC: 5A09357 Assistance with Respiratory Ventilation, Less than 24 Consecutive Hours, Continuous Positive Airway Pressure (ICD-10-PCS; 2021-03-15)
DX: J96.21 Acute and chronic respiratory failure with hypoxia (principal); J44.1 Chronic obstructive pulmonary disease with (acute) exacerbation; I50.32 Chronic diastolic (congestive) heart failure; E66.2 Morbid (severe) obesity with alveolar hypoventilation; Z68.43 Body mass index [BMI] 50.0-59.9, adult; I11.0 Hypertensive heart disease with heart failure; E78.00 Pure hypercholesterolemia, unspecified; K76.0 Fatty (change of) liver, not elsewhere classified; E11.65 Type 2 diabetes mellitus with hyperglycemia; J98.4 Other disorders of lung; L40.8 Other psoriasis; E78.5 Hyperlipidemia, unspecified; E03.9 Hypothyroidism, unspecified; I25.10 Atherosclerotic heart disease of native coronary artery without angina pectoris; J96.22 Acute and chronic respiratory failure with hypercapnia; F41.9 Anxiety disorder, unspecified; E87.70 Fluid overload, unspecified; Z20.822 Contact with and (suspected) exposure to COVID-19; Z90.49 Acquired absence of other specified parts of digestive tract; Z91.19 Patient's noncompliance with other medical treatment and regimen; Z79.4 Long term (current) use of insulin; Z79.899 Other long term (current) drug therapy

== ENCOUNTER 2021-04-01 12:59 | Inpatient (IN) | payer MEDICAID ==
[~2021-04-01] VITALS: Ht 157.5 cm; Wt 137.3 kg
--- NOTE | ~2021-04-01 | PROC ---
[address] [address] PROCEDURE REPORT Name: LEILA ANAND Room: [address] IN ..#: [id number] Admission: 04/01/21 Attend Phys: Evie Pryor Discharge: Date of : 58 Report #: [id number] THIS REPORT FOR: cc: [facility] - Clinic physician unknown [facility] - Clinic physician unknown [facility],Medical Records Staff ~ For GI report, please see the Provation report in Perceptive 7 content. By: 0646Medical Records Staff JR /PATRICIA
[~2021-04-01 12:59] MED LIST changes: +CLIMARA1 EAC3 TRANSDERM; +MYSOLINE50 MG PO; +SPIRONOLACTONE25 MG PO
[2021-04-01 13:06] VITALS: BP 213/76
[2021-04-01 13:43] LABS: ABSOLUTE BASOPHILS 0.1 thou/uL (0.0-0.2); ABSOLUTE EOSINOPHILS 0.3 thou/uL (0.0-0.7); ABSOLUTE LYMPHOCYTES 3.1 thou/uL (0.8-5.3); ABSOLUTE MONOCYTES 0.6 thou/uL (0.0-1.2); ABSOLUTE NEUTROPHILS 5.2 thou/uL (1.6-8.1); BASOPHILS 0.7 %; EOSINOPHILS 3.2 %; HEMATOCRIT 36.9 % (37.0-47.0); LYMPHOCYTES 33.5 %; MCH 27.4 pg (26.0-34.0); MCHC 32.4 g/dL (28.0-37.0); MCV 84.7 fL (80.0-100.0); MONOCYTES 6.9 %; MPV 7.5 fl. (7.2-11.1); NUCLEATED RBCS 0 /100WBC; PLATELET COUNT* 173 thou/uL (150-400); POLYS 55.7 %; RBC 4.36 mil/uL (4.20-5.00); RDW-CV 16.9 % (10.5-14.5); WBC 9.2 thou/uL (4.0-11.0)
[2021-04-01 13:50] LABS: CALCIUM 8.5 mg/dL (8.5-10.1); CREATININE 0.8 mg/dL (0.6-1.3)
[2021-04-01 14:01] LABS: ALBUMIN 3.1 g/dL (3.4-5.0); TOTAL BILIRUBIN 0.1 mg/dL (<0.1-1.0); TOTAL PROTEIN 7.2 g/dL (6.4-8.2)
--- NOTE | 2021-04-01 15:36 | EKG ---
[place] [address] ELECTROCARDIOGRAM REPORT Name: LEILA ANAND Room: [facility]#: [id number] Admission: 04/01/21 Attend Phys: Discharge: Date of : 58 Date of Service: 04/01/21 1314 Report #: [id number] THIS REPORT FOR: //name// [facility] ED Test Date: 2021-04-01 Test Time: 13:14:57 Pat Name: LEILA ANAND Department: Room: Gender: Manager Group Home: : 1960 Requested By: Mau Batres Order Number: [id number] MD: Adolph Lanza Measurements Intervals [place] Rate: 104 P: 61 [place]: 149 QRS: -31 QRSD: 84 T: 93 QT: 329 QTc: 433 Interpretive Statements Sinus tachycardia Left axis deviation Probable inferior scar Nonspecific T abnormalities, lateral leads Baseline wander in lead(s) V2 Compared to ECG 03/07/2021 21:41:28 T-wave abnormality now present Ectopic atrial rhythm no longer present Myocardial infarct finding persists Electronically Signed On 04-01-2021 15:35:52 CDT by Adolph Lanza [email or web address] <ELECTRONICALLY SIGNED> By: Adolph Lanza MD, [facility] 04/01/21 1535 1314 1314 Adolph Lanza MD, [facility] /EPI
[2021-04-01 16:04] VITALS: BP 148/71
[2021-04-01 16:15] VITALS: BP 149/58
[2021-04-01 23:37] VITALS: BP 162/68
[2021-04-02 04:18] VITALS: BP 150/74
[2021-04-02 08:00] VITALS: BP 156/73
[2021-04-02 12:08] VITALS: BP 140/70
[2021-04-02 16:26] VITALS: BP 160/78
[2021-04-02 18:51] LABS: BE 0.2 mmol/L (-2 to +3); PCO2 49.3 mmHg (35.0-45.0); PO2 73.4 mmHg (75.0-100.0); pH 7.348 (7.340-7.450)
[2021-04-03 00:38] VITALS: BP 155/79
[2021-04-03 04:14] VITALS: BP 130/65
[2021-04-03 04:47] LABS: ABSOLUTE BASOPHILS 0.1 thou/uL (0.0-0.2); ABSOLUTE LYMPHOCYTES 2.9 thou/uL (0.8-5.3); ABSOLUTE MONOCYTES 0.9 thou/uL (0.0-1.2); ABSOLUTE NEUTROPHILS 8.5 thou/uL (1.6-8.1); BASOPHILS 0.4 %; EOSINOPHILS 0.1 %; HEMATOCRIT 38.2 % (37.0-47.0); HEMOGLOBIN 12.2 gm/dL (12.0-15.0); LYMPHOCYTES 23.6 %; MCH 27.1 pg (26.0-34.0); MCHC 31.8 g/dL (28.0-37.0); MCV 85.1 fL (80.0-100.0); MONOCYTES 7.2 %; MPV 7.8 fl. (7.2-11.1); NUCLEATED RBCS 0 /100WBC; PLATELET COUNT* 226 thou/uL (150-400); POLYS 68.7 %; RBC 4.49 mil/uL (4.20-5.00); RDW-CV 16.8 % (10.5-14.5); WBC 12.4 thou/uL (4.0-11.0)
[2021-04-03 04:59] LABS: CALCIUM 10.2 mg/dL (8.5-10.1); POTASSIUM 4.9 mmol/L (3.5-5.1)
[2021-04-03 12:00] VITALS: BP 141/51
[2021-04-03 16:00] VITALS: BP 136/56
[2021-04-03 20:00] VITALS: BP 147/71
[2021-04-04 00:03] VITALS: BP 146/98
[2021-04-04 03:45] VITALS: BP 146/96
[2021-04-04 08:54] VITALS: BP 146/65
[2021-04-04 09:31] LABS: HEMATOCRIT 37.9 % (37.0-47.0); HEMOGLOBIN 12.4 gm/dL (12.0-15.0); MCH 27.5 pg (26.0-34.0); MCHC 32.6 g/dL (28.0-37.0); MCV 84.5 fL (80.0-100.0); MPV 7.6 fl. (7.2-11.1); RBC 4.49 mil/uL (4.20-5.00); RDW-CV 17.3 % (10.5-14.5); WBC 13.9 thou/uL (4.0-11.0)
[2021-04-04 09:43] LABS: ALBUMIN 3.5 g/dL (3.4-5.0); CALCIUM 9.3 mg/dL (8.5-10.1); MAGNESIUM 2.1 mg/dL (1.8-2.4); POTASSIUM 4.4 mmol/L (3.5-5.1); TOTAL BILIRUBIN 0.4 mg/dL (<0.1-1.0); TOTAL PROTEIN 7.7 g/dL (6.4-8.2)
[2021-04-04 12:00] VITALS: BP 143/57
[2021-04-04 16:00] VITALS: BP 145/68
[2021-04-04 20:00] VITALS: BP 166/62
[2021-04-05] VITALS (7 sets, daily range): BP systolic 113–155; BP diastolic 52–75
[2021-04-05 09:57] LABS: HEMATOCRIT 40.2 % (37.0-47.0); HEMOGLOBIN 12.9 gm/dL (12.0-15.0); MCH 27.2 pg (26.0-34.0); MCV 85.2 fL (80.0-100.0); MPV 7.6 fl. (7.2-11.1); RBC 4.72 mil/uL (4.20-5.00); RDW-CV 17.3 % (10.5-14.5); WBC 10.3 thou/uL (4.0-11.0)
--- NOTE | 2021-04-05 10:10 | CON ---
[address] [address] CONSULTATION Name: LEILA ANAND Room: [address] IN ..#: [id number] Admission: 04/01/21 Attend Phys: Evie Pryor Discharge: Date of : 58 Report #: [id number] THIS REPORT FOR: cc: [facility] - Clinic physician unknown [facility] - Clinic physician unknown Josué Stringer MD ~ DOC #: [id number] Josué Stringer MD DATE OF CONSULTATION: 04/02/2021 HISTORY OF PRESENT ILLNESS: This is a 61-year-old female with history of COPD and CHF, who presented to the hospital with exacerbation of her CHF and shortness of air. She is usually on 4 liters of oxygen at home and currently on 5 liters, getting diuresed with Lasix. Her lower extremities have 2+ edema. We were consulted in reference to patient dysphagia. She reports that usually solid food and large pills may get stuck in her upper esophagus. She denies any lower GI symptoms. The patient also has pneumonia for which she is receiving antibiotics. PAST MEDICAL HISTORY: Significant for history of COPD as the patient is on 4 liters of oxygen at home, CHF, hypertension, diabetes, morbid obesity, fatty liver disease, cellulitis, pneumonia, dyslipidemia. ALLERGIES: No known drug allergies. MEDICATIONS: Please refer to MAR. SOCIAL HISTORY: The patient lives at home. She is morbidly obese and is on 4 liters of O2 at home. She is a former smoker, but denies tobaccoism at this time. She also denies any alcohol use. FAMILY HISTORY: Significant for coronary artery disease and COPD. PHYSICAL EXAMINATION: GENERAL: Reveals morbidly obese female, lying on bed, on 5 liters of oxygen nasal cannula. VITAL SIGNS: Blood pressure of 160/78, respiration 18, pulse 86, and temperature 97.9. LUNGS: Clear. CARDIOVASCULAR: Regular. ABDOMEN: Soft, large, nontender. Bowel sounds are positive. Decreased breath sounds at the bases. NEUROLOGIC: The patient is alert, [place] [address] [address] CONSULTATION Name: KIKALEILA Room: [address]#: [id number] Admission: 04/01/21 Attend Phys: Evie Pyror Discharge: Date of : 58 Report #: [id number] LABORATORY DATA: Reveal sodium of 136, potassium 4.0, BUN is 14, creatinine 0.8. Lipase is 91, ALT is 40, alkaline phosphatase 183, GGTP is 637. WBC is 9.2 with hemoglobin of 12 and platelets of 173. IMAGING: Chest x-ray was obtained on admission. This is significant for mild vascular congestion and pulmonary edema. There is also cardiomegaly with lower atelectasis versus pneumonia. ASSESSMENT AND PLAN: The patient with chronic obstructive pulmonary disease on 4 liters of O2, who presents with possible pneumonia and heart failure. She is currently getting diuresed. She has dysphagia. We will consider EGD by tomorrow. Her O2 sat requirements are at baseline. We will make further recommendation after her upper endoscopy is complete. MD JERRY Gomez/RIVERA/CHANDNI <ELECTRONICALLY SIGNED> By: Josué Stringer MD 04/05/21 1010 1548 0405Josué Stringer MD /nt
[2021-04-05 10:20] LABS: ALBUMIN 3.6 g/dL (3.4-5.0); CALCIUM 8.8 mg/dL (8.5-10.1); CREATININE 0.9 mg/dL (0.6-1.3); POTASSIUM 4.8 mmol/L (3.5-5.1); TOTAL BILIRUBIN 0.3 mg/dL (<0.1-1.0); TOTAL PROTEIN 7.9 g/dL (6.4-8.2)
[2021-04-06 03:51] VITALS: BP 169/74
[2021-04-06 04:43] LABS: CALCIUM 9.5 mg/dL (8.5-10.1); MAGNESIUM 2.2 mg/dL (1.8-2.4); POTASSIUM 4.1 mmol/L (3.5-5.1)
[2021-04-06 04:55] LABS: HEMATOCRIT 39.3 % (37.0-47.0); HEMOGLOBIN 12.6 gm/dL (12.0-15.0); MCH 26.9 pg (26.0-34.0); MCHC 32.1 g/dL (28.0-37.0); MPV 7.5 fl. (7.2-11.1); RBC 4.68 mil/uL (4.20-5.00); RDW-CV 17.4 % (10.5-14.5); WBC 13.1 thou/uL (4.0-11.0)
[2021-04-06 07:55] VITALS: BP 162/75
[2021-04-06 12:00] VITALS: BP 151/67
[2021-04-06 16:00] VITALS: BP 173/78
[2021-04-06 20:00] VITALS: BP 121/75
[2021-04-07 01:00] VITALS: BP 154/76
[2021-04-07 08:00] VITALS: BP 134/66
[2021-04-07 11:28] VITALS: BP 134/66
[2021-04-07 12:01] VITALS: BP 147/62
[2021-04-07 15:34] VITALS: BP 145/60
[2021-04-07 23:48] VITALS: BP 158/63
[2021-04-08 04:52] VITALS: BP 136/50
[2021-04-08 07:45] VITALS: BP 150/51
[2021-04-08] MEDS ORDERED: PROTONIX40 M2 PO (09:04)
[2021-04-08] MEDS ORDERED: COLESTID1 GM PO (09:04)
[2021-04-08] MEDS ORDERED: VICODIN HP 10-1 EAC1 PO (09:04)
[2021-04-08] MEDS ORDERED: METOLAZONE 5 MG5 MG PO (09:04)
[2021-04-08] MEDS ORDERED: PREDNISONE 10 M10 M1 PO (09:04)
[2021-04-08 11:43] VITALS: BP 150/51
[2021-04-08 11:58] VITALS: BP 148/76
--- NOTE | 2021-04-10 17:06 | PATH ---
[address] [address] PATHOLOGY RPT PROCEDURE Name: LYRIC RANDLE Room: [address] IN M.R.#: [id number] Admission: 04/01/21 Date of : 58 Discharge: 04/08/21 Report #: [id number] Path Case #: [id number] [facility] Accession Number: [id number] . 01 Material submitted: . gastrointestinal site - GASTRIC BIOPSIES FOR GASTRITIS . 01 Clinical history: . EGD IN OR HEART FAILURE . 02 Diagnosis: Gastric biopsies: - Mild nonspecific chronic gastritis with dystrophic calcification of unknown etiology, negative for Helicobacter pylori organisms, granulomas and dysplasia. (CHASE:sandra; 04/10/2021) . Special stain: H. pylori immuno MBR 04/10/2021 1626 Local . 02 Electronically signed: . Ayaz Winter MD, Pathologist NPI- [id number] . 01 Gross description: . The specimen is received in formalin, labeled "Lyric Randle, gastric biopsies for gastritis" received as 2 fragments of soft foster tissue measuring up to 0.3 cm. Entirely submitted in A1. ([facility]; 04/09/2021) NANCY/NANCY 04/10/2021 1624 Local . 02 Pathologist provided ICD-10: K29.50 . 02 CPT . 001322, C61614 Specimen Comment: A courtesy copy of this report has been sent to [phone] Specimen Comment: [phone] Specimen Comment: Report sent to / DR LADD Performed at: [address] [id number] MD Red Meyers MD Phone: [phone] Performed at: 02 [facility] [address] [place], [id number] [address] [address] PATHOLOGY RPT PROCEDURE Name: LYRIC RANDLE Room: [address] IN M.R.#: [id number] Admission: 04/01/21 Date of : 58 Discharge: 04/08/21 Report #: [id number] Path Case #: [id number] MD Ayaz Winter MD Phone: [phone]
== END 2021-04-08 15:20 | disposition home or self-care (01) | DRG 291 ==
LOC: M.ERS 12:59 → M.TBA-ER 14:38 → M.ERS 16:05 → M.2W 16:19
PROVIDERS: Emergency Medicine Emergency Medical Services; Internal Medicine; ADMIT Internal Medicine; ATTEND Internal Medicine
PROC: 5A09357 Assistance with Respiratory Ventilation, Less than 24 Consecutive Hours, Continuous Positive Airway Pressure (ICD-10-PCS; 2021-04-03)
PROC: 5A09357 Assistance with Respiratory Ventilation, Less than 24 Consecutive Hours, Continuous Positive Airway Pressure (ICD-10-PCS; 2021-04-05)
PROC: 0D758ZZ Dilation of Esophagus, Via Natural or Artificial Opening Endoscopic (ICD-10-PCS; principal; 2021-04-07)
PROC: 0DB68ZX Excision of Stomach, Via Natural or Artificial Opening Endoscopic, Diagnostic (ICD-10-PCS; principal; 2021-04-07)
DX: I11.0 Hypertensive heart disease with heart failure (principal); J96.20 Acute and chronic respiratory failure, unspecified whether with hypoxia or hypercapnia; J18.9 Pneumonia, unspecified organism; J44.0 Chronic obstructive pulmonary disease with (acute) lower respiratory infection; Z68.43 Body mass index [BMI] 50.0-59.9, adult; E66.2 Morbid (severe) obesity with alveolar hypoventilation; I50.33 Acute on chronic diastolic (congestive) heart failure; E78.00 Pure hypercholesterolemia, unspecified; K76.0 Fatty (change of) liver, not elsewhere classified; E78.5 Hyperlipidemia, unspecified; R13.10 Dysphagia, unspecified; K44.9 Diaphragmatic hernia without obstruction or gangrene; K29.70 Gastritis, unspecified, without bleeding; E11.65 Type 2 diabetes mellitus with hyperglycemia; Z20.822 Contact with and (suspected) exposure to COVID-19; Z95.5 Presence of coronary angioplasty implant and graft; Z90.49 Acquired absence of other specified parts of digestive tract; Z87.891 Personal history of nicotine dependence; Z82.49 Family history of ischemic heart disease and other diseases of the circulatory system; Z83.6 Family history of other diseases of the respiratory system

== ENCOUNTER 2021-05-13 12:55 | Emergency (ER) | payer MEDICAID ==
[~2021-05-13] VITALS: Ht 157.5 cm; Wt 119.8 kg
[~2021-05-13 12:55] MED LIST changes: +COLESTID1 GM PO; +PROTONIX40 M2 PO
[2021-05-13 13:22] LABS: ABSOLUTE BASOPHILS 0.1 thou/uL (0.0-0.2); ABSOLUTE EOSINOPHILS 0.2 thou/uL (0.0-0.7); ABSOLUTE LYMPHOCYTES 3.2 thou/uL (0.8-5.3); ABSOLUTE MONOCYTES 0.9 thou/uL (0.0-1.2); ABSOLUTE NEUTROPHILS 7.2 thou/uL (1.6-8.1); BASOPHILS 1.2 %; HEMATOCRIT 39.6 % (37.0-47.0); HEMOGLOBIN 12.6 gm/dL (12.0-15.0); LYMPHOCYTES 27.3 %; MCH 27.6 pg (26.0-34.0); MCHC 31.9 g/dL (28.0-37.0); MCV 86.5 fL (80.0-100.0); MPV 7.9 fl. (7.2-11.1); NUCLEATED RBCS 0 /100WBC; PLATELET COUNT* 178 thou/uL (150-400); POLYS 61.5 %; RBC 4.57 mil/uL (4.20-5.00); RDW-CV 17.7 % (10.5-14.5); WBC 11.8 thou/uL (4.0-11.0)
[2021-05-13 13:31] LABS: CALCIUM 8.1 mg/dL (8.5-10.1); CREATININE 0.9 mg/dL (0.6-1.3); POTASSIUM 4.6 mmol/L (3.5-5.1)
[2021-05-13 13:52] LABS: ALBUMIN 3.4 g/dL (3.4-5.0); CK-MB MASS 0.8 ng/mL (<0.5-3.6); TOTAL BILIRUBIN 0.3 mg/dL (<0.1-1.0); TOTAL PROTEIN 7.8 g/dL (6.4-8.2)
[2021-05-13 14:04] LABS: URINE BILIRUBIN NEGATIVE (Negative); URINE BLOOD TRACE (Negative); URINE CLARITY CLEAR; URINE COLOR YELLOW; URINE GLUCOSE-RANDOM 3+ (Negative); URINE KETONES NEGATIVE (Negative); URINE LEUKOCYTES-REFLEX NEGATIVE (Negative); URINE PROTEIN NEGATIVE (Negative); URINE UROBILINOGEN 0.2 E.U./dl (0.2-1.0)
[2021-05-13 14:06] LABS: URINE NITRITE-REFLEX POSITIVE (Negative)
[2021-05-13 14:11] LABS: BACTERIA-REFLEX >30 Many /HPF (None Seen); CASTS None Seen /LPF (None Seen); CRYSTALS None Seen /LPF (None Seen); MUCUS None Seen strn/LPF (None Seen); SQUAMOUS 4-10 Moderate /LPF (0-3); URINE RBC 0-2 Rare /HPF (0-2); URINE WBC-REFLEX 6-15 Few /HPF (0-5)
[2021-05-13] MEDS ORDERED: DOXYCYCLINE 10100 MG PO (14:58)
[2021-05-13] MEDS ORDERED: PREDNISONE 20 M20 M1 PO (14:58)
[2021-05-13 15:27] VITALS: BP 139/69
--- NOTE | 2021-05-13 16:20 | EKG ---
[place] [address] ELECTROCARDIOGRAM REPORT Name: KIKALEILA Patel [facility] [id number] Admission: 05/13/21 Attend Phys: Discharge: 05/13/21 Date of : 58 Date of Service: 05/13/21 1301 Report #: [id number] THIS REPORT FOR: //name// [facility] ED Test Date: 2021-05-13 Test Time: 13:01:49 Pat Name: LEILA ANAND Department: Room: Gender: F Personal Trainer: DSL : 1960 Requested By: Irvin Andrade Order Number: [id number] MD: Clayton Montejo Measurements Intervals [place] Rate: 97 P: 58 [place]: 158 QRS: -33 QRSD: 82 T: 87 QT: 348 QTc: 442 Interpretive Statements Sinus rhythm nonspecific T wave changes Left axis deviation Compared to ECG 04/01/2021 13:14:57 Sinus tachycardia no longer present Electronically Signed On 05-13-2021 16:19:49 CDT by Clayton Montejo [email or web address] <ELECTRONICALLY SIGNED> By: Clayton Montejo MD, [facility] 05/13/21 1619 1301 1301 Clayton Montejo MD, [facility] /EPI
== END 2021-05-13 15:28 | disposition home or self-care (01) ==
LOC: M.ERS 12:55
PROVIDERS: Family Medicine
DX: J44.1 Chronic obstructive pulmonary disease with (acute) exacerbation (principal); N39.0 Urinary tract infection, site not specified; I11.0 Hypertensive heart disease with heart failure; I50.30 Unspecified diastolic (congestive) heart failure; E78.00 Pure hypercholesterolemia, unspecified; E11.9 Type 2 diabetes mellitus without complications; F17.210 Nicotine dependence, cigarettes, uncomplicated; I25.10 Atherosclerotic heart disease of native coronary artery without angina pectoris; E66.9 Obesity, unspecified; Z95.5 Presence of coronary angioplasty implant and graft; Z87.891 Personal history of nicotine dependence; Z98.51 Tubal ligation status; Z79.891 Long term (current) use of opiate analgesic; Z79.899 Other long term (current) drug therapy; Z79.4 Long term (current) use of insulin; Z79.82 Long term (current) use of aspirin

== ENCOUNTER 2021-05-29 14:18 | Emergency (ER) | payer MEDICAID ==
[~2021-05-29] VITALS: Ht 157.5 cm; Wt 130.6 kg
--- NOTE | 2021-05-29 15:33 | EKG ---
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: : 1960 Requested By: Erica William Order Number: [id number] MD: Clayton Montejo Measurements Intervals [place] Rate: 95 P: 66 [place]: 150 QRS: -23 QRSD: 78 T: 88 QT: 351 QTc: 442 Interpretive Statements Sinus rhythm Borderline left axis deviation Consider anterior infarct Baseline wander in lead(s) V2 Compared to ECG 05/13/2021 13:01:49 no change Electronically Signed On 05-29-2021 15:33:50 CDT by Clayton Montejo [email or web address] <ELECTRONICALLY SIGNED> By: Clayton Montejo MD, [facility] 05/29/21 1533 1511 1511 Clayton Montejo MD, [facility] /EPI
[2021-05-29 15:55] LABS: ABSOLUTE BASOPHILS 0.1 thou/uL (0.0-0.2); ABSOLUTE EOSINOPHILS 0.3 thou/uL (0.0-0.7); ABSOLUTE LYMPHOCYTES 2.6 thou/uL (0.8-5.3); ABSOLUTE MONOCYTES 1.1 thou/uL (0.0-1.2); ABSOLUTE NEUTROPHILS 8.9 thou/uL (1.6-8.1); EOSINOPHILS 2.7 %; HEMATOCRIT 40.3 % (37.0-47.0); HEMOGLOBIN 12.9 gm/dL (12.0-15.0); LYMPHOCYTES 19.8 %; MCH 26.8 pg (26.0-34.0); MCHC 31.9 g/dL (28.0-37.0); MONOCYTES 8.2 %; MPV 7.9 fl. (7.2-11.1); NUCLEATED RBCS 0 /100WBC; PLATELET COUNT* 234 thou/uL (150-400); POLYS 68.3 %; RDW-CV 17.4 % (10.5-14.5); WBC 13.1 thou/uL (4.0-11.0)
[2021-05-29 16:02] LABS: CALCIUM 8.6 mg/dL (8.5-10.1); CREATININE 0.7 mg/dL (0.6-1.3)
[2021-05-29 16:03] LABS: POTASSIUM 4.7 mmol/L (3.5-5.1)
[2021-05-29 16:13] LABS: ALBUMIN 3.2 g/dL (3.4-5.0); TOTAL BILIRUBIN 0.7 mg/dL (<0.1-1.0); TOTAL PROTEIN 7.6 g/dL (6.4-8.2)
[2021-05-29 16:49] LABS: SGPT 46.8 U/L (30-65)
[2021-05-29] MEDS ORDERED: PREDNISONE 20 M20 M1 PO (17:56)
[2021-05-29] MEDS ORDERED: LEVAQUIN 500 M500 MG PO (18:04)
[2021-05-29 18:22] VITALS: BP 156/84
[2021-05-30] MEDS ORDERED: humulin R SUBQ (13:45)
== END 2021-05-29 18:24 | disposition left against medical advice (07) ==
LOC: M.ERS 14:18
PROVIDERS: Physician Assistant
DX: I50.22 Chronic systolic (congestive) heart failure (principal); F17.210 Nicotine dependence, cigarettes, uncomplicated; E78.00 Pure hypercholesterolemia, unspecified; Z20.822 Contact with and (suspected) exposure to COVID-19; Z79.899 Other long term (current) drug therapy; Z98.51 Tubal ligation status

== ENCOUNTER 2021-05-29 18:33 | Inpatient (IN) | payer MEDICAID ==
[~2021-05-29] VITALS: Ht 157.5 cm; Wt 130.4 kg
[2021-05-29 18:55] VITALS: BP 162/63
[2021-05-29 22:41] VITALS: BP 158/68
[2021-05-30 00:17] VITALS: BP 172/90
[2021-05-30 05:14] VITALS: BP 144/62
--- NOTE | 2021-05-30 08:07 | NUR ---
PATIENT ARRIVED ON FLOOR FROM ER ABOUT 2245. PATIENT ADMISSION HISTORY AND ASSESSMENT WAS COMPLETED CHARTED. PATIENT ACCIDENTALLY PULLED OUT HER IV IN THE ER AND IS A VERY HARD STICK UNABLE TO GET ACCESS AT THIS TIME. PATIENT IS ON OXYGEN AT 6L AND BIPAP WITH 6L WHEN SLEEPING. WILL CONTINUE TO MONITOR.
[2021-05-30 09:14] VITALS: BP 146/57
[2021-05-30 12:00] VITALS: BP 139/60
[2021-05-30 12:49] LABS: ABSOLUTE BASOPHILS 0.1 thou/uL (0.0-0.2); ABSOLUTE LYMPHOCYTES 1.5 thou/uL (0.8-5.3); ABSOLUTE MONOCYTES 0.6 thou/uL (0.0-1.2); ABSOLUTE NEUTROPHILS 9.9 thou/uL (1.6-8.1); BASOPHILS 0.7 %; EOSINOPHILS 0.1 %; HEMOGLOBIN 12.8 gm/dL (12.0-15.0); LYMPHOCYTES 12.5 %; MCH 26.4 pg (26.0-34.0); MCHC 30.5 g/dL (28.0-37.0); MCV 86.4 fL (80.0-100.0); MONOCYTES 4.8 %; MPV 7.8 fl. (7.2-11.1); NUCLEATED RBCS 0 /100WBC; PLATELET COUNT* 235 thou/uL (150-400); POLYS 81.9 %; RBC 4.86 mil/uL (4.20-5.00); RDW-CV 17.4 % (10.5-14.5)
[2021-05-30 13:04] LABS: APTT 27.9 Seconds (25.0-31.3); PROTIME 10.5 Seconds (9.20-11.50)
[2021-05-30 13:07] LABS: ALBUMIN 3.3 g/dL (3.4-5.0); CALCIUM 8.7 mg/dL (8.5-10.1); CREATININE 1.1 mg/dL (0.6-1.3); POTASSIUM 4.8 mmol/L (3.5-5.1); TOTAL BILIRUBIN 0.9 mg/dL (<0.1-1.0); TOTAL PROTEIN 8.1 g/dL (6.4-8.2)
[2021-05-30] MEDS ORDERED: humulin R SUBQ (13:45)
[2021-05-30 16:00] VITALS: BP 142/71
[2021-05-30 20:00] VITALS: BP 120/44
--- NOTE | 2021-05-30 20:04 | NUR ---
pt blood sugar elevated through out day. insuline with little to no effect. MD aware. possible transfer to ICU if increased insulin dose this even does not bring down blood sugar. clip on sunglasses assembler aware. lab draw pending for blood glucose result.
[2021-05-31 00:36] VITALS: BP 115/58
[2021-05-31 04:00] VITALS: BP 133/62
[2021-05-31 07:54] VITALS: BP 148/66
[2021-05-31 12:00] VITALS: BP 135/54
[2021-05-31 16:00] VITALS: BP 141/60
--- NOTE | 2021-05-31 18:01 | NUR ---
SPOKE WITH MD PATIENT READING HIGH. FOLLOW ORDER TO GIVEN INSULIN LISPRO EVERY 2 HR WITH A BLOOD SUGAR CHECK. CALL MD IF NMOT EFFECTIVE AFTER 5 DOSES.
[2021-05-31 19:45] VITALS: BP 146/40
[2021-06-01 00:16] VITALS: BP 140/64
[2021-06-01 04:43] VITALS: BP 133/52
[2021-06-01 04:56] LABS: ANION GAP 8 mmol/L (7-16); BUN 58 mg/dL (7-18); CALCIUM 8.9 mg/dL (8.5-10.1); CHLORIDE 91 mmol/L (98-107); CHOLESTEROL 291 mg/dL (<200); CO2 36 mmol/L (21-32); CREATININE 1.7 mg/dL (0.6-1.3); GLUCOSE 140 mg/dL (70-99); HDL CHOLESTEROL 46 mg/dL (>40); POTASSIUM 3.4 mmol/L (3.5-5.1); SODIUM 135 mmol/L (136-145); TC:HDL 6.3 Ratio (Not establshd); TRIGLYCERIDE 424 mg/dL (<150); VLDL 85 mg/dL (<40)
--- NOTE | 2021-06-01 05:42 | NUR ---
PT SLEPT ON AND OFF THIS SHIFT. ASSESSMENT DOCUMENTED. MEDS GIVEN PER E-DEC. IV PATENT. PAIN MEDS GIVEN PER E-DEC WITH RELIEF. PTS BLOOD SUGARS MORE CONTROLLED THIS SHIFT. PT ABLE TO MAKE NEEDS KNOWN. WILL CONTINUE WITH PLAN OF CARE.
[2021-06-01 06:25] LABS: SERUM ASSESSMENT Clear
[2021-06-01 08:37] VITALS: BP 130/70
--- NOTE | 2021-06-01 10:26 | NUR ---
CM ASSESSMENT: PT IS KNOWN TO THIS CM FROM PREVIOUS ADMISSIONS. PT RESIDES AT HOME WITH DTR AND SHE ASSIST THE PT NEEDED WITH CARES. PT USES WALKER OR CANE FOR MOBILITY. PT USES HOME OXYGEN AND BIPAP. PT HAS PAST HX OF INPT ARU HERE. PT HAS PAST HH HX (NURSING ONLY D/T MEDICAID INSURANCE). PT CURRENTLY ON-SERVICE WITH [facility] FOR HOME C[facility]IVER S[facility] THRU [facility] 7DAYS/WK 3HRS/DAY. CM WILL REMAIN AVAILABLE TO ASSIST AND FOLLOW NEEDED.
--- NOTE | 2021-06-01 12:58 | CON ---
[address] [address] CONSULTATION Name: LEILA ANAND Room: [address] IN .R.#: [id number] Admission: 05/29/21 Attend Phys: Michaelle King MD Discharge: Date of : 58 Report #: [id number] THIS REPORT FOR: cc: [facility] - Clinic physician unknown [facility] - Clinic physician unknown Clayton Montejo MD [facility] ~ DATE OF CONSULTATION: 05/31/2021 CARDIOLOGY CONSULTATION HISTORY OF PRESENT ILLNESS: The patient is a 61-year-old single white female who I was asked to see in the hospital after she complained to being short of breath. The patient has extensive and complicated past medical history. After an abnormal stress test, she apparently had a stent placed in her coronary arteries by Dr. Garduno at [facility] in 2008. She has done well since that time. However, she is not very active because of her large size. She continues to see Dr. Garduno, who now has an office here in [place]. She denies any recurrent chest tightness. She has a long history of shortness of breath. She has oxygen at home and has a nebulizer. She was last admitted here to [facility] in March with a COPD exacerbation. Recently, she has had increasing shortness of breath and edema. She denies any palpitations or syncope. She denies any fever or cough. PAST MEDICAL HISTORY: She has had previous appendectomy, tubal ligation, hypertension, diabetes, hyperlipidemia. CURRENT MEDICATIONS: Consists of spironolactone, Colestid, Zaroxolyn, Protonix, Synthroid, Bumex, prednisone, insulin, Neurontin, Abilify, Zoloft, Climara, diltiazem, allopurinol, clonazepam and aspirin a day. ALLERGIES: She has no known drug allergies. FAMILY HISTORY: Her mother had coronary stents. SOCIAL HISTORY: She is . Her ex- actually . She currently lives with daughter in [place], [place]. Quit smoking in 2008. No alcohol abuse. She uses marijuana occasionally. REVIEW OF SYSTEMS: She is 5 feet 2 inches and 288 pounds. No history of stroke. She has COPD. She has a fatty liver. No kidney disease. She has a history of panic attacks. She has been hospitalized at [facility] in the past. No chronic skin condition. PHYSICAL EXAMINATION: GENERAL: Revealed an overweight, middle-aged female who [place] [address] CONSULTATION Name: LEILA ANAND Room: [address]#: [id number] Admission: 05/29/21 Attend Phys: Michaelle King MD Discharge: Date of : 58 Report #: [id number] VITAL SIGNS: She had a blood pressure of 130/60, pulse 70. She is afebrile. HEENT: She was anicteric. Conjunctivae pink. Mucosa is moist. NECK: Veins does not appear distended. No carotid bruits. NECK: Supple. CHEST: Clear to auscultation. HEART: Regular rate and rhythm without murmur. ABDOMEN: Obese. EXTREMITIES: Had trace edema. Dorsalis pedis pulse, 2+ bilaterally. SKIN: Cool and dry. NEUROLOGIC: Nonfocal. DIAGNOSTIC DATA: Her ECG on admission showed a sinus rhythm. Her workup included an echocardiogram in October this year that showed an ejection fraction of 60%. Her x-rays on admission included a chest x-ray that showed cardiomegaly, mild vascular congestion. She actually underwent a CT scan of the chest using a PE protocol yesterday that showed no evidence of pulmonary embolus, aortic dissection, atelectasis noted. She actually had a venous duplex scan of her legs in February of this year that showed no DVT. LABORATORY WORK: Sodium 133, creatinine 1.1, potassium 4.8, glucose was 617. Liver function studies including alkaline phosphatase 216, GGTP is 637, albumin 3.3, troponin 0.06. BNP 136. Her white blood cell count 12.0, hematocrit 42.0. IMPRESSION AND RECOMMENDATIONS: 1. Diastolic heart failure. Recommend Lasix. 2. Hypertension. 3. Diabetes. 4. Chronic obstructive pulmonary disease. 5. Previous stent. I would continue aspirin a day. 6. Sleep apnea. The patient uses CPAP. 7. Hyperlipidemia. The patient is on a statin drug. <ELECTRONICALLY SIGNED> By: Clayton Montejo MD, [facility] 06/01/21 1258 0908 1220Davinicho Montejo MD, FACC /nt
[2021-06-01 14:41] VITALS: BP 128/65
--- NOTE | 2021-06-01 15:14 | 2DMMODE ---
[place] [address] 2 D/M-MODE ECHOCARDIOGRAM Name: KIKALEILA Room: [address] IN [place].#: [id number] Admission: 05/29/21 Attend Phys: Michaelle King, Discharge: Date of : 58 Date of Service: 06/01/21 1514 Report #: [id number] THIS REPORT FOR: cc: [facility] - Clinic physician unknown [facility] - Clinic physician unknown Clayton Montejo MD [facility] ~ APPROVED REPORT Study performed: 06/01/2021 14:18:00 EXAM: Comprehensive 2D, Doppler, and color-flow Echocardiogram Patient Location: In-Patient Room #: [facility] Status: routine BSA: 2.23 HR: 83 bpm BP: 133/52 mmHg Rhythm: NSR Other Information Study Quality: Fair Indications Congestive Heart Failure Dyspnea 2D Dimensions IVSd: 14.78 (7-11mm) LVOT Diam: 19.46 (18-24mm) LVDd: 40.89 mm PWd: 12.23 (7-11mm) Ascending Ao: 30.46 (22-36mm) LVDs: 27.38 (25-40mm) Aortic Root: 31.46 mm Volumes Left Atrial Volume (Systole) LA ESV Index: 22.20 mL/m2 Aortic Valve AoV Peak Eber.: 1.77 m/s AO Peak Gr.: 12.48 mmHg LVOT Max P.82 mmHg AO Mean Gr.: 6.17 mmHg LVOT Mean P.40 mmHg LVOT Max V: 1.57 m/s AO V2 VTI: 30.29 cm LVOT Mean V: 0.94 m/s SAMANTHA (VTI): 3.01 cm2 LVOT V1 VTI: 30.59 [place] [address] 2 D/M-MODE ECHOCARDIOGRAM Name: LEILA ANAND Room: [address] IN ..#: [id number] Admission: 05/29/21 Attend Phys: Michaelle King, Discharge: Date of : 58 Date of Service: 06/01/21 1514 Report #: [id number] Mitral Valve E/A Ratio: 1.02 MV Decel. Time: 227.91 ms MV E Max Eber.: 1.01 m/s MV PHT: 66.09 ms MVA (PHT): 3.33 cm2 TDI E/Lateral E': 9.18 E/Medial E': 12.63 Medial E' Eber.: 0.08 m/s Lateral E' Eber.: 0.11 m/s Pulmonary Valve PV Peak Eber.: 1.19 m/s PV Peak Gr.: 5.62 mmHg Left Ventricle The left ventricle is normal size. endocardium not well visualized Mild concentric left ventricular hypertrophy. Left ventricular systolic function is normal. The left ventricular ejection fraction is within the normal range. LVEF is 55-60%. The left ventricular diastolic function is normal. Right Ventricle The right ventricle is normal size. The right ventricular systolic function is normal. Atria The left atrium size is normal. The right atrium size is normal. Aortic Valve The aortic valve is normal in structure. Trace aortic regurgitation. There is no aortic valvular stenosis. Mitral Valve The mitral valve is normal in structure. Trace mitral regurgitation. No evidence of mitral valve stenosis. Tricuspid Valve The tricuspid valve is normal in structure. Trace tricuspid regurgitation. Unable to assess PA pressure. Pulmonic Valve The pulmonary valve is normal in structure. [place] [address] 2 D/M-MODE ECHOCARDIOGRAM Name: LEILA ANAND Room: [address] IN [facility]#: [id number] Admission: 05/29/21 Attend Phys: Michaelle King, Discharge: Date of : 58 Date of Service: 06/01/21 1514 Report #: [id number] Great Vessels The aortic root is normal in size. IVC is not well visualized. Pericardium There is no pericardial effusion. <Conclusion> Normal echocardiogram. Mild concentric left ventricular hypertrophy. Left ventricular systolic function is normal. The left ventricular ejection fraction is within the normal range. <ELECTRONICALLY SIGNED> By: Clayton Montejo MD, [facility] 06/01/21 1514 1514 1514 Clayton Montejo MD, [facility] /INF
[2021-06-01 20:00] VITALS: BP 153/63
[2021-06-01 20:06] VITALS: BP 155/64
[2021-06-02 01:16] VITALS: BP 126/71
[2021-06-02 04:38] VITALS: BP 136/68
[2021-06-02 05:09] LABS: HEMATOCRIT 41.1 % (37.0-47.0); HEMOGLOBIN 13.8 gm/dL (12.0-15.0); MCH 27.3 pg (26.0-34.0); MCHC 33.5 g/dL (28.0-37.0); MCV 81.6 fL (80.0-100.0); MPV 7.4 fl. (7.2-11.1); RBC 5.04 mil/uL (4.20-5.00); RDW-CV 16.7 % (10.5-14.5); WBC 15.3 thou/uL (4.0-11.0)
[2021-06-02 05:16] LABS: CALCIUM 9.1 mg/dL (8.5-10.1); CREATININE 1.2 mg/dL (0.6-1.3); POTASSIUM 3.6 mmol/L (3.5-5.1)
[2021-06-02 07:09] LABS: GLYCOHEMOGLOBIN (HGB A1C) 13.1 % (4.8-5.6)
[2021-06-02 07:30] VITALS: BP 135/56
[2021-06-02 12:00] VITALS: BP 137/64
--- NOTE | 2021-06-02 14:09 | NUR ---
PLAN OF CARE: PHYSICIAN INFORMS OF PLAN FOR PT TO REMAIN INPT ONE MORE DAY, AND POSSIBLY D/C HOME TOMORROW WITH HH (NURSING ONLY D/T MEDICAID INSURANCE). CM WILL REMAIN AVAILABLE TO ASSIST AND FOLLOW NEEDED.
[2021-06-02 16:00] VITALS: BP 125/66
[2021-06-02 20:00] VITALS: BP 134/78
[2021-06-03] VITALS: BP 159/74
[2021-06-03 04:00] VITALS: BP 130/65
--- NOTE | 2021-06-03 05:05 | NUR ---
PT ALERT ORIENTED. UP AD MALIA. O2 AT 4 LITERS NC. 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
[2021-06-03 08:00] VITALS: BP 153/77
[2021-06-03 12:33] VITALS: BP 115/67
[2021-06-03] MEDS ORDERED: LIPITOR40 MG PO (16:02)
[2021-06-03] MEDS ORDERED: PREDNISONE 10 M10 MG PO (16:13)
--- NOTE | 2021-06-03 16:24 | NUR ---
PLAN FOR THE PT TO D/C HOME TODAY WITH HH. PT DECLINED HH. NO OTHER CM D/C PLANNING NEEDS ANTICIAPTED. CM WILL REMAIN AVAILABLE TO ASSIST AND FOLLOW NEEDED.
[2021-06-03 16:28] VITALS: BP 115/67
[2021-06-03 16:43] VITALS: BP 148/66
--- NOTE | 2021-06-03 16:55 | NUR ---
Discharge instructions given. No concerns voiced. IV accessed removed.
--- NOTE | 2021-06-04 23:23 | CON ---
[address] [address] CONSULTATION Name: LEILA ANAND Room: [address] IN [place]#: [id number] Admission: 05/29/21 Attend Phys: Michaelle King MD Discharge: 06/03/21 Date of : 58 Report #: [id number] THIS REPORT FOR: cc: [facility] - Clinic physician unknown [facility] - Clinic physician unknown Swapnil Brown MD ~ DATE OF CONSULTATION: 06/02/2021 REQUESTING PHYSICIAN: Joann Son DO. INDICATION FOR CONSULTATION: Acute on chronic hypoxemic and hypercarbic respiratory failure. HISTORY OF PRESENT ILLNESS: This is a 61 years old female with past medical history as mentioned below. I know her from a previous admission to this hospital. The patient has a history of COPD, previously used to have a Trelegy as well as BiPAP at home. Unfortunately, rather than keeping the Trelegy, she returned the Trelegy and now only has a BiPAP, is on long-term oxygen at home, does have morbid obesity, body mass index is 53. She does have obstructive sleep apnea as well and has had previously difficult to control blood glucose, has been on steroids. At this time, again she is admitted with increasing shortness of breath, has had a cough as well. There is not much sputum. There is no chest pain. She did not describe upper respiratory complaints. She has had swelling of lower extremities. She does not have calf pain. The patient did have a CTA chest performed, which shows some atelectasis and infiltrates, but these all appeared to be old. There may be some mild increase in pulmonary vascular congestion as well. The patient overall reports improvement in shortness of breath since she was admitted and has no new complaints. The patient has had disturbed sleep at night as well as sleepiness during the day. These complaints are at baseline. The patient did initially have some orthopnea as well and this is better. She has had some joint pains, which remain at baseline. REVIEW OF SYSTEMS: For 12 points is negative, except as mentioned above. PAST MEDICAL HISTORY: Chronic hypoxemic and hypercarbic respiratory failure secondary to chronic obstructive pulmonary disease, obstructive sleep apnea and obesity hypoventilation syndrome, on oxygen long-term, on BiPAP while asleep long-term, previously had Trelegy for sleep at night, but she returned, uncontrolled diabetes, multiple episodes of fluid overload, hypertension, coronary artery disease, cardiac stents, fatty liver disease, hyperlipidemia and hypothyroidism. Her baseline creatinine is normal at around 1.2. There is a recent echocardiogram, which shows a left ventricular ejection fraction of 55-60% without elevation [place] [address] CONSULTATION Name: KIKALEILA Room: [address] IN [place].#: [id number] Admission: 05/29/21 Attend Phys: Michaelle King MD Discharge: 06/03/21 Date of : 58 Report #: [id number] SOCIAL HISTORY: There is an extensive history of smoking in the past, has now discontinued. No known history of heavy alcohol use or illegal drug use. CURRENT MEDICATIONS: List in [facility] reviewed. HOME MEDICATIONS: List in [facility] reviewed. ALLERGIES: No known drug allergies. FAMILY HISTORY: No pertinent family history known at this time. PHYSICAL EXAMINATION: GENERAL: She is alert, awake and oriented, does not appear to be in any distress at this time. VITAL SIGNS: Has a pulse of 86 and a blood pressure of 137/64, she is saturating 93%. She is on her baseline oxygen, which is 4 liters. Respiratory rate is around 18. She is afebrile with a temperature of 36.2. HEENT: Head is normocephalic and atraumatic. Pupils are equal and reactive. There is no throat erythema. NECK: Does not show raised JVP, asymmetry, mass or lymph nodes. CHEST: Symmetrical expansion on inspection and palpation. On auscultation, breath sounds are bilaterally equal, decreased. No added sounds. HEART: Regular. There is no murmur. ABDOMEN: Soft and nontender. LOWER EXTREMITIES: 2+ edema, no calf tenderness. SKIN: Dry and intact. NEUROLOGIC: Moves all extremities bilaterally equally and spontaneously with no focal deficit identified. LABORATORY DATA: The patient's chest x-ray, venous Dopplers as well as CTA chest in [facility] reviewed and compared with the previous studies. The patient's lab work in [facility] also reviewed. ASSESSMENT AND PLAN: 1. Acute on chronic hypoxemic and hypercarbic respiratory failure. This appears to be secondary to fluid overload and bronchospasm. I do not see any obvious sign of infection at this time. Workup for thromboembolism is negative. At this point, we will continue with BiPAP while asleep. Continue to titrate oxygen. The patient is on her baseline amounts of oxygen. 2. Chronic obstructive pulmonary disease exacerbation, noted. The patient was initially treated with Solu-Medrol and is now on prednisone. I switched the prednisone over to a prednisone taper. We will continue with [place] [address] CONSULTATION Name: LEILA ANAND Room: [address] IN [facility].#: [id number] Admission: 05/29/21 Attend Phys: Michaelle King MD Discharge: 06/03/21 Date of : 58 Report #: [id number] 3. Fluid overload/recent elevation in creatinine. Cardiology service is managing diuretics. 4. Obstructive sleep apnea and obesity hypoventilation syndrome. Continue BiPAP while asleep. 5. Morbid obesity. Weight loss is strongly recommended. 6. Uncontrolled diabetes, management per the primary service. 7. Pulmonary infiltrates/atelectasis. I compared with the patient's old CT and I essentially do not see any major change. If she coughs up sputum, then we will send for cultures. I do not see any obvious sign of a new infection and therefore, for now, I decided to hold off on starting antibiotics. Certainly, the same could be considered should her respiratory status worsen. I will be happy to see the patient for followup in the office. <ELECTRONICALLY SIGNED> By: Swapnil Brown MD 06/04/21 2323 1754 [id number] Brown MD /nt
== END 2021-06-03 18:54 | disposition home or self-care (01) | DRG 291 ==
LOC: M.ERS 18:33 → M.TBA-ER 18:44 → M.2W 23:07
PROVIDERS: Internal Medicine; Internal Medicine Cardiovascular Disease; ADMIT Internal Medicine; ATTEND Internal Medicine
PROC: 5A09357 Assistance with Respiratory Ventilation, Less than 24 Consecutive Hours, Continuous Positive Airway Pressure (ICD-10-PCS; principal; 2021-05-29)
PROC: 5A09357 Assistance with Respiratory Ventilation, Less than 24 Consecutive Hours, Continuous Positive Airway Pressure (ICD-10-PCS; 2021-05-31)
PROC: 5A09357 Assistance with Respiratory Ventilation, Less than 24 Consecutive Hours, Continuous Positive Airway Pressure (ICD-10-PCS; 2021-06-01)
DX: I11.0 Hypertensive heart disease with heart failure (principal); J96.21 Acute and chronic respiratory failure with hypoxia; J18.9 Pneumonia, unspecified organism; J96.22 Acute and chronic respiratory failure with hypercapnia; E66.2 Morbid (severe) obesity with alveolar hypoventilation; Z68.43 Body mass index [BMI] 50.0-59.9, adult; J44.1 Chronic obstructive pulmonary disease with (acute) exacerbation; J98.11 Atelectasis; J44.0 Chronic obstructive pulmonary disease with (acute) lower respiratory infection; I50.43 Acute on chronic combined systolic (congestive) and diastolic (congestive) heart failure; E78.5 Hyperlipidemia, unspecified; I25.10 Atherosclerotic heart disease of native coronary artery without angina pectoris; E03.9 Hypothyroidism, unspecified; E78.00 Pure hypercholesterolemia, unspecified; E11.65 Type 2 diabetes mellitus with hyperglycemia; K76.0 Fatty (change of) liver, not elsewhere classified; Z95.5 Presence of coronary angioplasty implant and graft; Z90.49 Acquired absence of other specified parts of digestive tract; Z79.899 Other long term (current) drug therapy; Z82.49 Family history of ischemic heart disease and other diseases of the circulatory system; Z63.5 Disruption of family by separation and divorce; Z87.891 Personal history of nicotine dependence; Z79.82 Long term (current) use of aspirin; Z99.81 Dependence on supplemental oxygen; Z79.4 Long term (current) use of insulin

== ENCOUNTER 2021-06-21 21:41 | Inpatient (IN) | payer MEDICAID ==
[~2021-06-21] VITALS: Ht 157.5 cm; Wt 130.6 kg
[~2021-06-21 21:41] MED LIST changes: +humulin R SUBQ
[2021-06-21 21:48] VITALS: BP 157/77
[2021-06-21 23:42] LABS: HEMATOCRIT 38.9 % (37.0-47.0); HEMOGLOBIN 12.1 gm/dL (12.0-15.0); MCH 26.7 pg (26.0-34.0); MCHC 31.2 g/dL (28.0-37.0); MCV 85.5 fL (80.0-100.0); MPV 7.7 fl. (7.2-11.1); NUCLEATED RBCS 0 /100WBC; PLATELET COUNT* 164 thou/uL (150-400); RBC 4.55 mil/uL (4.20-5.00); RDW-CV 16.6 % (10.5-14.5); WBC 12.3 thou/uL (4.0-11.0)
[2021-06-22 00:12] LABS: CALCIUM 8.7 mg/dL (8.5-10.1); POTASSIUM 4.7 mmol/L (3.5-5.1)
[2021-06-22 00:18] LABS: BE 2.1 mmol/L (-2 to +3)
[2021-06-22 00:21] LABS: PCO2 68.8 mmHg (35.0-45.0); PO2 199.5 mmHg (75.0-100.0); pH 7.273 (7.340-7.450)
[2021-06-22 01:18] LABS: ABSOLUTE LYMPHOCYTES 1.7 thou/uL (0.8-5.3); ABSOLUTE NEUTROPHILS 9.6 thou/uL (1.6-8.1); PLATELET ESTIMATE ADEQUATE
[2021-06-22 05:22] LABS: URINE BILIRUBIN NEGATIVE (Negative); URINE BLOOD NEGATIVE (Negative); URINE CLARITY CLEAR; URINE COLOR YELLOW; URINE GLUCOSE-RANDOM 3+ (Negative); URINE KETONES TRACE (Negative); URINE LEUKOCYTES-REFLEX NEGATIVE (Negative); URINE NITRITE-REFLEX NEGATIVE (Negative); URINE PROTEIN 1+ (Negative); URINE UROBILINOGEN 0.2 E.U./dl (0.2-1.0)
[2021-06-22 06:22] VITALS: BP 150/76
[2021-06-22 09:45] VITALS: BP 177/79
--- NOTE | 2021-06-22 10:52 | EKG ---
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 : 1960 Requested By: Trista Avila Order Number: [id number] MD: Clayton Montejo Measurements Intervals [place] Rate: 97 P: 52 NH: 164 QRS: -20 QRSD: 86 T: 95 QT: 368 QTc: 468 Interpretive Statements Pacemaker spikes or artifacts Sinus rhythm Atrial premature complex Borderline left axis deviation Low voltage, precordial leads Abnormal T, consider ischemia, lateral leads Artifact in lead(s) II,III,aVR,aVF,V1,V3,V4,V5,V6 Compared to ECG 05/29/2021 15:11:11 Atrial premature complex(es) now present Low QRS voltage now present Electronically Signed On 06-22-2021 10:51:51 CDT by Clayton Montejo [email or web address] <ELECTRONICALLY SIGNED> By: Clayton Montejo MD, [facility] 06/22/21 1051 2328 Clayton Montejo MD, [facility] /EPI
[2021-06-22 13:45] VITALS: BP 139/62
[2021-06-22 18:00] VITALS: BP 138/63
[2021-06-22 22:00] VITALS: BP 119/63
[2021-06-23] VITALS (7 sets, daily range): BP systolic 124–141; BP diastolic 58–68
--- NOTE | 2021-06-23 01:48 | NUR ---
UNABLE TO USE V60 DUE TO OXYGEN CONNECTION MALFUNCTION AT THE WALL. PT PLACED ON HOME CPAP W/ 7LPM BLED IN. PT APPEARS RESTING COMFORTABLE. SATS 95%
[2021-06-23 04:26] LABS: HEMATOCRIT 36.6 % (37.0-47.0); HEMOGLOBIN 11.4 gm/dL (12.0-15.0); MCH 26.3 pg (26.0-34.0); MCHC 31.2 g/dL (28.0-37.0); MCV 84.4 fL (80.0-100.0); MPV 7.8 fl. (7.2-11.1); RBC 4.33 mil/uL (4.20-5.00); RDW-CV 16.6 % (10.5-14.5); WBC 12.5 thou/uL (4.0-11.0)
[2021-06-23 04:27] LABS: ALBUMIN 3.4 g/dL (3.4-5.0); CALCIUM 8.9 mg/dL (8.5-10.1); CREATININE 1.3 mg/dL (0.6-1.3); MAGNESIUM 2.2 mg/dL (1.8-2.4); TOTAL BILIRUBIN 0.3 mg/dL (<0.1-1.0); TOTAL PROTEIN 7.6 g/dL (6.4-8.2)
[2021-06-23 06:04] LABS: BE 1.2 mmol/L (-2 to +3); PO2 86.8 mmHg (75.0-100.0); pH 7.304 (7.340-7.450)
[2021-06-23 06:06] LABS: PCO2 59.2 mmHg (35.0-45.0)
[2021-06-24 00:47] VITALS: BP 133/65
[2021-06-24 03:33] VITALS: BP 103/46
[2021-06-24 04:58] LABS: HEMATOCRIT 35.8 % (37.0-47.0); HEMOGLOBIN 11.3 gm/dL (12.0-15.0); MCHC 31.6 g/dL (28.0-37.0); MCV 85.4 fL (80.0-100.0); MPV 7.6 fl. (7.2-11.1); RBC 4.19 mil/uL (4.20-5.00); RDW-CV 17.1 % (10.5-14.5); WBC 11.8 thou/uL (4.0-11.0)
[2021-06-24 05:28] LABS: ALBUMIN 3.3 g/dL (3.4-5.0); CALCIUM 8.7 mg/dL (8.5-10.1); CREATININE 1.4 mg/dL (0.6-1.3); MAGNESIUM 2.4 mg/dL (1.8-2.4); POTASSIUM 4.5 mmol/L (3.5-5.1); TOTAL BILIRUBIN 0.3 mg/dL (<0.1-1.0); TOTAL PROTEIN 7.1 g/dL (6.4-8.2)
[2021-06-24 07:25] VITALS: BP 118/53
[2021-06-24 11:25] VITALS: BP 113/40
--- NOTE | 2021-06-24 16:17 | NUR ---
PUI. Pt known to this CM from previous hospital stay. Left VM for Pt's brother, await phone call. Per chart review, Pt resides at home with her dtr, dtr assists with ADLs as needed. Pt has a walker and cane for mobility. Pt wears home o2 and has a bipap. Hx of ARU recently. Pt has in home caregivers that come 7days/week for 3 hrs/day. CM following for dc needs.
--- NOTE | 2021-06-24 17:16 | NUR ---
PT REMAINED ALERT AND ORIENTED. PT AGITATED AT PENDING COVID STATUS, PT STATES SHE DOES NOT HAVE IT AND WANTS OFF THIS UNIT. PT EDUCATED ON COVID PROTOCOL. PT STATES SHE WANTS LASIX, PHYSICIAN NOTIFIED. O2 7 LITERS, PT WEARS 5 LITERS AT HOME. FAMILY UPDATED. FALL RISK PRECAUTIONS IN PLACE. ACCU CHECKS COMPLETED. HEART MONTIORED. CALL LIGHT WITHIN REACH.
[2021-06-24 17:21] VITALS: BP 118/47
[2021-06-24] MEDS ORDERED: FUROSEMIDE 40 M40 MG PO (17:24)
[2021-06-24 20:00] VITALS: BP 161/61
[2021-06-25] VITALS (7 sets, daily range): BP systolic 99–154; BP diastolic 47–73
--- NOTE | 2021-06-25 07:42 | NUR ---
PT SLEPT ON AND OFF THIS SHIFT. ASSESSMENT DOCUMENTED. MEDS GIVEN PER E-MAR. IV PATENT. PAIN MEDS GIVEN PER E-MAR WITH RELIEF. PT ON 7L NC THIS SHIFT. DR NOTIFED OF GLUCOSE GREATER THAN 400, NO NEW ORDERS. PT ABLE TO MAKE NEEDS KNOWN. WILL CONTINUE WITH PLAN OF CARE.
--- NOTE | 2021-06-25 12:27 | NUR ---
Nutrition: Pt admitted to COVID unit. On 7L O2. RD very familiar with pt. Pt lives at home with dtr. Has in home caregivers. Wt is in usual range, 288#. CHO controlled diet ordered. Meds: insulin, lasix, Fe. PMHx: DM, OBE, CHF, COPD. Labs: BUN 57, cr 1.4, BG 300s, albumin 3.3. Cannot visit with pt 1:1 d/t COVID restrictions. Pt usually eats well. I always give her new recipes when she is admitted here. She tries to eat healthy and watch her BG. Consider low nutrition risk at this time. RD available via consult for nutrition needs.
--- NOTE | 2021-06-25 15:13 | NUR ---
Covid negative. Copd exac. Get up out of bed today. Anticipate dc tomorrow.
--- NOTE | 2021-06-25 18:15 | NUR ---
PATIENT RESTING IN BED. PATIENT UP TO COMMODE/CHAIR AD MALIA. PATIENT DOES GET SHORT OF AIR AND DESAT WITH ACTIVITY. OXYGEN ON AT 7L/NC. PATIENT HAS COMPLAINTS OF GENERALIZED PAIN, TREATED ADEQUATELY WITH MEDICATION. PATIENT HAS EXCELLENT APPETITE. PATIENT HAD HOME INSULIN PENS, AWAITING FRIEND TO BRING NEEDLES. PATIENT DENIES ANY NEEDS AT THIS TIME. CALL LIGHT WITHIN REACH.
[2021-06-26 04:00] VITALS: BP 98/74
--- NOTE | 2021-06-26 05:31 | NUR ---
PT SLEPT ON AND OFF THIS SHIFT. ASSESSMENT DOCUMENTED. MEDS GIVEN PER E-DEC. IV PATENT. PAIN AND ANXIETY MEDS GIVEN PER E-MAR. PT ON 6L NC THIS SHIFT, HOME CPAP AT TIMES. PT ABLE TO MAKE NEEDS KNOWN. WILL CONTINUE WITH PLAN OF CARE.
[2021-06-26 07:45] VITALS: BP 128/50
[2021-06-26 09:29] LABS: HEMATOCRIT 39.1 % (37.0-47.0); HEMOGLOBIN 12.2 gm/dL (12.0-15.0); MCH 26.6 pg (26.0-34.0); MCHC 31.1 g/dL (28.0-37.0); MCV 85.3 fL (80.0-100.0); MPV 7.7 fl. (7.2-11.1); RBC 4.58 mil/uL (4.20-5.00); RDW-CV 17.3 % (10.5-14.5); WBC 11.6 thou/uL (4.0-11.0)
[2021-06-26 09:43] LABS: CREATININE 1.1 mg/dL (0.6-1.3); POTASSIUM 4.7 mmol/L (3.5-5.1)
[2021-06-26] MEDS ORDERED: PREDNISONE 10 M10 MG PO (10:41)
[2021-06-26 12:16] VITALS: BP 108/72
--- NOTE | 2021-06-26 16:22 | NUR ---
Pt discharging to home today. No meeds
[2021-06-26 18:37] VITALS: BP 108/72
[2021-06-27 00:31] VITALS: BP 134/54
[2021-06-27 04:18] VITALS: BP 178/64
--- NOTE | 2021-06-27 05:17 | NUR ---
PATIENT WAS TRANSFFERED UP FROM ROOM 102 AT BEGINNING OF THE SHIFT. PATIENT TOOK A SHOWER WITH HELP OF HER FRIEND. PATIENT REMAINS ON OXYGEN AT 5L PER NC. AND HOME CPAP WHILE SLEEPING. BLOOD SUGARS HAVE IMPROVED TO UPPER 100'S TO 200'S. PATIENT WAS GIVEN PAIN MEDICINE ONCE THIS SHIFT. PATIENT SHOULD DISCHARGE HOME TODAY. WILL CONTINUE TO MONITOR.
[2021-06-27 09:00] VITALS: BP 162/66
[2021-06-27 11:00] VITALS: BP 108/72
== END 2021-06-27 12:38 | disposition home or self-care (01) | DRG 177 ==
LOC: M.ERS 21:41 → M.TBA-ER 06-22 01:50 → M.ORTHSURG 06-23 16:37 → M.2W 06-26 19:58
PROVIDERS: Emergency Medicine; Family Medicine; Internal Medicine; ADMIT Internal Medicine; ATTEND Internal Medicine
PROC: 5A09357 Assistance with Respiratory Ventilation, Less than 24 Consecutive Hours, Continuous Positive Airway Pressure (ICD-10-PCS; 2021-06-22)
PROC: 5A09357 Assistance with Respiratory Ventilation, Less than 24 Consecutive Hours, Continuous Positive Airway Pressure (ICD-10-PCS; 2021-06-23)
PROC: 5A0935A Assistance with Respiratory Ventilation, Less than 24 Consecutive Hours, High Flow/Velocity Cannula (ICD-10-PCS; 2021-06-24)
PROC: 5A09357 Assistance with Respiratory Ventilation, Less than 24 Consecutive Hours, Continuous Positive Airway Pressure (ICD-10-PCS; 2021-06-24)
PROC: 5A0935A Assistance with Respiratory Ventilation, Less than 24 Consecutive Hours, High Flow/Velocity Cannula (ICD-10-PCS; principal; 2021-06-26)
PROC: 5A09357 Assistance with Respiratory Ventilation, Less than 24 Consecutive Hours, Continuous Positive Airway Pressure (ICD-10-PCS; 2021-06-27)
DX: J15.6 Pneumonia due to other Gram-negative bacteria (principal); J96.21 Acute and chronic respiratory failure with hypoxia; I50.33 Acute on chronic diastolic (congestive) heart failure; I13.0 Hypertensive heart and chronic kidney disease with heart failure and stage 1 through stage 4 chronic kidney disease, or unspecified chronic kidney disease; J44.0 Chronic obstructive pulmonary disease with (acute) lower respiratory infection; J44.1 Chronic obstructive pulmonary disease with (acute) exacerbation; J15.9 Unspecified bacterial pneumonia; N18.30 Chronic kidney disease, stage 3 unspecified; Z20.822 Contact with and (suspected) exposure to COVID-19; Z79.899 Other long term (current) drug therapy; E66.01 Morbid (severe) obesity due to excess calories; E11.65 Type 2 diabetes mellitus with hyperglycemia

== ENCOUNTER 2021-07-14 09:52 | Inpatient (IN) | payer MEDICAID ==
[~2021-07-14] VITALS: Ht 157.5 cm; Wt 139.8 kg
[~2021-07-14 09:52] MED LIST changes: +FUROSEMIDE 40 M40 MG PO
[2021-07-14 09:56] VITALS: BP 173/71
[2021-07-14 10:44] LABS: ABSOLUTE BASOPHILS 0.1 thou/uL (0.0-0.2); ABSOLUTE EOSINOPHILS 0.2 thou/uL (0.0-0.7); ABSOLUTE LYMPHOCYTES 2.2 thou/uL (0.8-5.3); ABSOLUTE MONOCYTES 0.8 thou/uL (0.0-1.2); ABSOLUTE NEUTROPHILS 8.7 thou/uL (1.6-8.1); BASOPHILS 1.1 %; HEMATOCRIT 39.6 % (37.0-47.0); HEMOGLOBIN 12.6 gm/dL (12.0-15.0); LYMPHOCYTES 18.3 %; MCH 26.8 pg (26.0-34.0); MCHC 31.8 g/dL (28.0-37.0); MCV 84.4 fL (80.0-100.0); MONOCYTES 6.3 %; NUCLEATED RBCS 0 /100WBC; PLATELET COUNT* 118 thou/uL (150-400); POLYS 72.3 %; RBC 4.69 mil/uL (4.20-5.00); RDW-CV 16.6 % (10.5-14.5); WBC 12.1 thou/uL (4.0-11.0)
[2021-07-14 10:51] LABS: CALCIUM 8.4 mg/dL (8.5-10.1); CREATININE 0.6 mg/dL (0.6-1.3); POTASSIUM 4.8 mmol/L (3.5-5.1)
[2021-07-14 10:56] LABS: ALBUMIN 3.5 g/dL (3.4-5.0); TOTAL BILIRUBIN 0.4 mg/dL (<0.1-1.0); TOTAL PROTEIN 6.9 g/dL (6.4-8.2)
--- NOTE | 2021-07-14 11:49 | EKG ---
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1960 Requested By: Ayaz Castillo Order Number: [id number] MD: Romario Simeon Measurements Intervals [place] Rate: 84 P: 62 WI: 149 QRS: -19 QRSD: 75 T: 69 QT: 362 QTc: 428 Interpretive Statements Sinus rhythm Borderline left axis deviation Low voltage, precordial leads Baseline wander in lead(s) II,III,aVL,aVF,V1,V2,V3,V4,V5,V6 Compared to ECG 06/21/2021 23:28:38 Atrial premature complex(es) no longer present T-wave abnormality no longer present Possible ischemia no longer present Electronically Signed On 07-14-2021 11:49:08 CDT by Romario Simeon [email or web address] <ELECTRONICALLY SIGNED> By: Romario Simeon MD, [facility] 07/14/21 1149 1040 1040 Romario Simeon MD, [facility] /EPI
[2021-07-14 22:49] VITALS: BP 144/49
[2021-07-14 22:56] VITALS: BP 156/64
[2021-07-15 01:17] VITALS: BP 173/78
[2021-07-15 05:30] LABS: HEMATOCRIT 38.9 % (37.0-47.0); HEMOGLOBIN 12.4 gm/dL (12.0-15.0); MCH 27.7 pg (26.0-34.0); MCHC 31.8 g/dL (28.0-37.0); MPV 7.9 fl. (7.2-11.1); NUCLEATED RBCS 0 /100WBC; PLATELET COUNT* 124 thou/uL (150-400); RBC 4.47 mil/uL (4.20-5.00); WBC 8.6 thou/uL (4.0-11.0)
[2021-07-15 05:35] VITALS: BP 134/60
[2021-07-15 05:37] LABS: CALCIUM 8.8 mg/dL (8.5-10.1); POTASSIUM 4.5 mmol/L (3.5-5.1)
[2021-07-15 06:25] LABS: ABSOLUTE LYMPHOCYTES 1.3 thou/uL (0.8-5.3); ABSOLUTE MONOCYTES 0.4 thou/uL (0.0-1.2); ABSOLUTE NEUTROPHILS 6.9 thou/uL (1.6-8.1); PLATELET ESTIMATE DECREASED
[2021-07-15 07:34] VITALS: BP 129/55
[2021-07-15 11:40] VITALS: BP 143/52
[2021-07-15 16:00] VITALS: BP 163/71
[2021-07-15 19:30] VITALS: BP 159/68
[2021-07-16] VITALS: BP 132/51
[2021-07-16 04:00] VITALS: BP 150/65
[2021-07-16 07:20] LABS: ABSOLUTE BASOPHILS 0.1 thou/uL (0.0-0.2); ABSOLUTE LYMPHOCYTES 2.9 thou/uL (0.8-5.3); ABSOLUTE NEUTROPHILS 9.2 thou/uL (1.6-8.1); BASOPHILS 0.6 %; EOSINOPHILS 0.1 %; HEMATOCRIT 39.6 % (37.0-47.0); HEMOGLOBIN 12.6 gm/dL (12.0-15.0); LYMPHOCYTES 22.1 %; MCH 27.3 pg (26.0-34.0); MCHC 31.8 g/dL (28.0-37.0); MCV 85.7 fL (80.0-100.0); MONOCYTES 7.3 %; MPV 7.8 fl. (7.2-11.1); NUCLEATED RBCS 0 /100WBC; PLATELET COUNT* 167 thou/uL (150-400); POLYS 69.9 %; RBC 4.63 mil/uL (4.20-5.00); RDW-CV 17.2 % (10.5-14.5); WBC 13.2 thou/uL (4.0-11.0)
[2021-07-16 07:33] LABS: APTT 23.8 Seconds (25.0-31.3); PROTIME 10.2 Seconds (9.20-11.50)
[2021-07-16 07:34] VITALS: BP 142/64
[2021-07-16 07:36] LABS: ALBUMIN 3.5 g/dL (3.4-5.0); CALCIUM 8.7 mg/dL (8.5-10.1); MAGNESIUM 2.2 mg/dL (1.8-2.4); PHOSPHORUS* 4.9 mg/dL (2.5-4.9); POTASSIUM 4.8 mmol/L (3.5-5.1); TOTAL BILIRUBIN 0.3 mg/dL (<0.1-1.0); TOTAL PROTEIN 7.2 g/dL (6.4-8.2)
[2021-07-16 12:00] VITALS: BP 130/63
[2021-07-16 16:00] VITALS: BP 145/48
[2021-07-16 20:00] VITALS: BP 147/58
[2021-07-17] VITALS: BP 142/67
[2021-07-17 04:00] VITALS: BP 136/56
[2021-07-17 08:29] LABS: ABSOLUTE LYMPHOCYTES 3.8 thou/uL (0.8-5.3); ABSOLUTE MONOCYTES 1.1 thou/uL (0.0-1.2); ABSOLUTE NEUTROPHILS 8.4 thou/uL (1.6-8.1); BASOPHILS 0.1 %; EOSINOPHILS 0.1 %; HEMATOCRIT 40.3 % (37.0-47.0); HEMOGLOBIN 12.6 gm/dL (12.0-15.0); LYMPHOCYTES 28.5 %; MCHC 31.2 g/dL (28.0-37.0); MCV 86.6 fL (80.0-100.0); MONOCYTES 7.9 %; MPV 7.8 fl. (7.2-11.1); NUCLEATED RBCS 0 /100WBC; PLATELET COUNT* 185 thou/uL (150-400); POLYS 63.4 %; RBC 4.66 mil/uL (4.20-5.00); RDW-CV 17.8 % (10.5-14.5); WBC 13.3 thou/uL (4.0-11.0)
[2021-07-17 08:35] VITALS: BP 143/79
[2021-07-17 09:13] LABS: ALBUMIN 3.8 g/dL (3.4-5.0); CALCIUM 9.5 mg/dL (8.5-10.1); CREATININE 0.9 mg/dL (0.6-1.3); POTASSIUM 4.1 mmol/L (3.5-5.1); TOTAL BILIRUBIN 0.4 mg/dL (<0.1-1.0); TOTAL PROTEIN 7.5 g/dL (6.4-8.2)
[2021-07-17 11:58] VITALS: BP 167/73
[2021-07-17 17:12] VITALS: BP 168/76
--- NOTE | 2021-07-17 17:58 | CON ---
[address] [address] CONSULTATION Name: LEILA ANAND Room: [address] IN [place].R.#: [id number] Admission: 07/14/21 Attend Phys: Pipe Fenton MD Discharge: Date of : 58 Report #: [id number] THIS REPORT FOR: cc: [facility] - Clinic physician unknown [facility] - Clinic physician unknown Swapnil Brown MD ~ REQUESTING PHYSICIAN: Pipe Fenton MD INDICATION FOR CONSULTATION: Acute on chronic hypoxemic respiratory failure. HISTORY OF PRESENT ILLNESS: A 61-year-old female has had multiple admissions to this hospital and is well known to us. She does have a longstanding history of COPD. She is on oxygen long-term. She also uses a BiPAP long-term. She previously had a Trilogy device for use while asleep, but unfortunately she preferred to the BiPAP over Trilogy and returned it. She does have obstructive sleep apnea as well. At this time, she is again admitted with increasing shortness of breath. There is some swelling of lower extremities as well. She says she has had small amount of yellow sputum production. There is no chest pain. There are no upper respiratory complaints. She does complain of having a sore throat and discomfort in her tongue. She has disturbed sleep at night. She has sleepiness during the day. These complaints are at baseline. She has had some joint pains, which are also at baseline. REVIEW OF SYSTEMS: The review of systems for 12 points is negative except as mentioned above. PAST MEDICAL HISTORY: COPD, on oxygen long-term, obstructive sleep apnea. The patient has chronic hypoxemic and hypercarbic respiratory failure, is on a BiPAP while asleep. Previously had a Trilogy device for use while asleep, but she returned it. Uncontrolled diabetes, multiple previous episodes of fluid overload, hypertension, coronary artery disease, cardiac stents, fatty liver disease, hyperlipidemia, hypothyroidism. She has had mild elevation in creatinine on multiple occasions; however, usually baseline creatinine returns back to between 1.0-1.2. Last available echocardiogram shows a normal left ventricular ejection fraction of 55-60% without elevation in right heart pressures. SOCIAL HISTORY: Extensive history of smoking in the past, discontinued around 2007 or 2008. No known history of heavy alcohol use or illegal drug use. CURRENT MEDICATIONS: List [place] [address] CONSULTATION Name: LEILA ANAND Room: [address]#: [id number] Admission: 07/14/21 Attend Phys: Pipe Fenton MD Discharge: Date of : 58 Report #: [id number] HOME MEDICATIONS: List also in [facility] reviewed. ALLERGIES: No known drug allergies. FAMILY HISTORY: No pertinent family history. IMMUNIZATION HISTORY: She says that she has received 2 doses of COVID-19 vaccine. The second dose was recently. PHYSICAL EXAMINATION: GENERAL: She is alert, awake and oriented. VITAL SIGNS: Pulse of 80 and a blood pressure of 143/54, she is saturating 95%. She is on 6 liters nasal cannula. Note that she is on more oxygen than her baseline. Her baseline is 4 liters, but she is also saturating 95%, heart rate is 80, respiratory rate is around 18-20. She is afebrile with a temperature of 36.1. Body mass index 56.3. HEENT: Head is normocephalic and atraumatic. Pupils are equal and reactive. There is thrush present in her throat. Mallampati 4 airway, mild throat erythema as well. NECK: Does not show raised JVP asymmetry, mass or lymph nodes. CHEST: Symmetrical expansion on inspection and palpation. On auscultation, breath sounds are bilaterally equal, but decreased. I do not hear any added sounds. HEART: Regular. There is no murmur. ABDOMEN: Mildly distended, nontender. EXTREMITIES: Lower extremities, 1+ edema, no calf tenderness. SKIN: Dry and intact. NEUROLOGIC: Moves all extremities bilaterally equally and spontaneously. There is no focal deficit identified. LABORATORY DATA: The patient's CBC as well as chemistries are [facility] and these are reviewed. Note that her glucoses have been elevated up to 443. Sodium was mildly elevated to 144, BUN is elevated to 19, but creatinine is 1.0. The entire lab work is in [facility] and is reviewed. COVID-19 antigen is negative. The patient also did have a chest x-ray performed yesterday, I did review the same and compared with the patient's previous chest x-rays. At first glance, it appears more likely to me that the changes since the last chest x-ray are secondary to increase in pulmonary vascular congestion. Certainly, it will be possible that there are infiltrates at the left lung base as well. ASSESSMENT AND PLAN: 1. Acute on chronic hypoxemic and hypercarbic respiratory failure. Baseline pCO2 has ranged from 49-59. Per current decompensation at first glance, it appears to be secondary to fluid overload. There [place] [address] CONSULTATION Name: LEILA ANAND Room: [address]#: [id number] Admission: 07/14/21 Attend Phys: Pipe Fenton MD Discharge: Date of : 58 Report #: [id number] of chronic obstructive pulmonary disease exacerbation as well. Certainly it will be possible that she has pneumonia as well though her chest x-ray findings likely are more due to increase in pulmonary vascular congestion. She is on a BiPAP while asleep. We will continue the same. Continue to titrate oxygen. 3. Fluid overload. We will watch BUN and creatinine closely. I will go ahead and give her an additional dose of Lasix now. Note that she is on Lasix 80 and Aldactone 25 daily in the morning. We will repeat a chest x-ray tomorrow and see where we stand. 4. Chronic obstructive pulmonary disease exacerbation. Agree with Solu-Medrol and nebulized bronchodilators; however, I feel that we can cut back the steroid dose. I cut back Solu-Medrol to 62.5 mg once a day. We will continue with DuoNeb and Brovana as currently ordered. 5. Pulmonary infiltrates. Again, these are more likely due to increase in pulmonary vascular congestion than pneumonia, but pneumonia will be possible. I feel that it is reasonable to continue Levaquin as currently ordered. If possible, then obtain a sputum culture. Note that the patient has a previous history of MRSA positivity in her nose. In case she was to worsen, then I will consider adding MRSA coverage. 6. Thrush. Fluconazole and nystatin. Watch LFTs. Watch for QT interval. 7. 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 8. Uncontrolled diabetes. She is on incredible 60 units b.i.d. of Lantus in addition to being on regular insulin at 112 units t.i.d. I would defer management to the Primary Service. 9. Edema of lower extremity/evaluation for thromboembolic phenomena. I will do venous Dopplers. We will check a D-dimer tomorrow. She is higher than average risk for contrast nephropathy. Previous D-dimers have been mildly elevated as well. At this time, I am inclined to hold off on doing a CTA of chest, but we will reassess tomorrow. 10. Deep venous thrombosis prophylaxis, Lovenox. 11. Clostridium difficile prophylaxis, Lactinex. 12. Gastrointestinal prophylaxis, already on Protonix. Thanks for this consultation. <ELECTRONICALLY SIGNED> By: Swapnil Brown MD 07/17/21 1758 1250 [id number] Brown MD /nt
[2021-07-17 20:00] VITALS: BP 171/63
[2021-07-18] VITALS: BP 145/64
[2021-07-18 04:00] VITALS: BP 135/43
[2021-07-18 06:32] LABS: CALCIUM 8.5 mg/dL (8.5-10.1); CREATININE 1.1 mg/dL (0.6-1.3); MAGNESIUM 2.1 mg/dL (1.8-2.4)
[2021-07-18] MEDS ORDERED: LEVOFLOXACIN750 MG PO (07:56)
[2021-07-18] MEDS ORDERED: PREDNISONE 10 M10 M1 PO (07:57)
[2021-07-18 08:00] VITALS: BP 154/84
[2021-07-18 12:00] VITALS: BP 177/82
[2021-07-18 16:00] VITALS: BP 150/62
[2021-07-18 20:00] VITALS: BP 152/71
[2021-07-19 01:37] VITALS: BP 152/56
[2021-07-19 05:08] VITALS: BP 148/60
[2021-07-19 08:00] VITALS: BP 161/65
[2021-07-19 12:00] VITALS: BP 149/57
[2021-07-19 14:47] VITALS: BP 1612/65
[2021-07-19 16:24] VITALS: BP 1612/65
== END 2021-07-19 16:10 | disposition home or self-care (01) | DRG 193 ==
LOC: M.ERS 09:52 → M.TBA-ER 12:14 → M.2W 22:35
PROVIDERS: Emergency Medicine; Internal Medicine Critical Care Medicine; ADMIT Internal Medicine; ATTEND Internal Medicine
PROC: 5A09357 Assistance with Respiratory Ventilation, Less than 24 Consecutive Hours, Continuous Positive Airway Pressure (ICD-10-PCS; principal; 2021-07-15)
PROC: 5A09357 Assistance with Respiratory Ventilation, Less than 24 Consecutive Hours, Continuous Positive Airway Pressure (ICD-10-PCS; 2021-07-16)
PROC: 5A09357 Assistance with Respiratory Ventilation, Less than 24 Consecutive Hours, Continuous Positive Airway Pressure (ICD-10-PCS; 2021-07-17)
PROC: 5A09357 Assistance with Respiratory Ventilation, Less than 24 Consecutive Hours, Continuous Positive Airway Pressure (ICD-10-PCS; 2021-07-18)
DX: J18.9 Pneumonia, unspecified organism (principal); J96.21 Acute and chronic respiratory failure with hypoxia; J96.22 Acute and chronic respiratory failure with hypercapnia; J44.0 Chronic obstructive pulmonary disease with (acute) lower respiratory infection; J44.1 Chronic obstructive pulmonary disease with (acute) exacerbation; Z68.43 Body mass index [BMI] 50.0-59.9, adult; G47.33 Obstructive sleep apnea (adult) (pediatric); I10 Essential (primary) hypertension; I25.10 Atherosclerotic heart disease of native coronary artery without angina pectoris; E78.5 Hyperlipidemia, unspecified; B37.9 Candidiasis, unspecified; E03.9 Hypothyroidism, unspecified; E11.65 Type 2 diabetes mellitus with hyperglycemia; E66.01 Morbid (severe) obesity due to excess calories; E88.81 Metabolic syndrome and other insulin resistance; Z20.822 Contact with and (suspected) exposure to COVID-19; D69.6 Thrombocytopenia, unspecified; Z79.82 Long term (current) use of aspirin; Z87.891 Personal history of nicotine dependence; Z95.5 Presence of coronary angioplasty implant and graft; Z79.899 Other long term (current) drug therapy

== ENCOUNTER 2021-07-25 19:06 | Inpatient (IN) | payer MEDICAID ==
[~2021-07-25] VITALS: Ht 157.5 cm; Wt 136.3 kg
[~2021-07-25 19:06] MED LIST changes: +LEVOFLOXACIN750 MG PO
[2021-07-25 19:07] VITALS: BP 153/74
[2021-07-25 19:34] LABS: HEMATOCRIT 40.2 % (37.0-47.0); HEMOGLOBIN 12.7 gm/dL (12.0-15.0); MCHC 31.5 g/dL (28.0-37.0); MCV 85.6 fL (80.0-100.0); MPV 7.4 fl. (7.2-11.1); NUCLEATED RBCS 0 /100WBC; PLATELET COUNT* 212 thou/uL (150-400); RDW-CV 16.7 % (10.5-14.5)
[2021-07-25 19:46] LABS: CALCIUM 9.1 mg/dL (8.5-10.1); POTASSIUM 4.3 mmol/L (3.5-5.1)
[2021-07-25 19:52] LABS: APTT 22.8 Seconds (25.0-31.3); INR 0.9
[2021-07-25 19:56] LABS: ALBUMIN 3.4 g/dL (3.4-5.0); MAGNESIUM 1.6 mg/dL (1.8-2.4); TOTAL BILIRUBIN 0.4 mg/dL (<0.1-1.0); TOTAL PROTEIN 7.6 g/dL (6.4-8.2)
[2021-07-25 20:14] LABS: ABSOLUTE EOSINOPHILS 0.1 thou/uL (0.0-0.7); ABSOLUTE MONOCYTES 0.4 thou/uL (0.0-1.2); ABSOLUTE NEUTROPHILS 9.5 thou/uL (1.6-8.1); LARGE PLATELETS OCCASIONAL; PLATELET ESTIMATE ADEQUATE
[2021-07-25 20:34] LABS: BE 10.9 mmol/L (-2 to +3); PO2 83.6 mmHg (75.0-100.0); pH 7.396 (7.340-7.450)
[2021-07-25 22:06] LABS: URINE BILIRUBIN NEGATIVE (Negative); URINE BLOOD NEGATIVE (Negative); URINE CLARITY CLEAR; URINE COLOR YELLOW; URINE GLUCOSE-RANDOM 3+ (Negative); URINE KETONES NEGATIVE (Negative); URINE LEUKOCYTES-REFLEX NEGATIVE (Negative); URINE NITRITE-REFLEX NEGATIVE (Negative); URINE PROTEIN TRACE (Negative); URINE UROBILINOGEN 0.2 E.U./dl (0.2-1.0)
[2021-07-25 23:15] VITALS: BP 162/60
[2021-07-25 23:23] VITALS: BP 132/59
[2021-07-26 04:00] VITALS: BP 125/62
--- NOTE | 2021-07-26 05:57 | NUR ---
REPORT RECIEVED FROM ER. PT ORIENTED TO ROOM, CALL LIGHT SHOWN, FALL AGREEMENT WENT OVER, PT STATED UNDERSTANDING. ADMISSION DOCUMENTED. IV PATENT, FLUIDS INFUSING. NOTIFED OF SIGNS OF FLUID OVERLOADING AND PATIENTS REQUEST FOR DIET ORDERS. ORDERS FOR LASIX RECIEVED, FLUIDS CONTINUED. PT FRUSTERATED ON NO FOOD DIET, EXPLAINED IMPORTANCE OF NOT EATING WITH BIPAP ON, PT STILL FRUSTERATED ATTEMPTING TO CALL 911 TO TRANSFER PT BACK HOME. NURSING ICT CUSTOMER SUPPORT OFFICER IN TO TALK TO PATIENT. PAGED AGAIN, NNO. PT IS CALMER THIS AM. FALL PRECAUTIONS IN PLACE. PT ABLE TO MAKE NEEDS KNOWN. WILL CONTINUE WITH PLAN OF CARE.
[2021-07-26 07:55] VITALS: BP 142/48
--- NOTE | 2021-07-26 09:52 | EKG ---
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 : 1960 Requested By: Melisa Ervin Order Number: [id number] MD: Clayton Montejo Measurements Intervals [employer] Rate: 97 P: 72 GA: 131 QRS: -11 QRSD: 75 T: 55 QT: 348 QTc: 442 Interpretive Statements Sinus rhythm Abnormal R-wave progression, late transition Baseline wander in lead(s) V3,V4 Compared to ECG 07/14/2021 10:40:12 No significant changes Electronically Signed On 07-26-2021 9:52:02 CDT by Clayton Montejo [email or web address] <ELECTRONICALLY SIGNED> By: Clayton Montejo MD, FACC 07/26/21 0952 07 07 Clayton Montejo MD, FACC /EPI
--- NOTE | 2021-07-26 11:15 | NUR ---
per hospitalits request, this RN checked with pts pharmacy, [facility] in [place] to inquire about pt receiving pain medications. chief nuclear medicine technologist stated pts last pain med script is Hydrocodone, 20 pills total on this script last given on 04/08/21, writen by Dr Meghan graves.
[2021-07-26 12:00] VITALS: BP 133/53
[2021-07-26 16:00] VITALS: BP 128/41
--- NOTE | 2021-07-26 18:40 | NUR ---
NO ACUTE EVENTS THIS SHIFT.
[2021-07-26 20:03] VITALS: BP 147/55
[2021-07-26 23:43] VITALS: BP 93/72
[2021-07-27 03:52] VITALS: BP 110/77
[2021-07-27 04:24] LABS: ABSOLUTE LYMPHOCYTES 2.1 thou/uL (0.8-5.3); ABSOLUTE MONOCYTES 0.8 thou/uL (0.0-1.2); ABSOLUTE NEUTROPHILS 8.7 thou/uL (1.6-8.1); BASOPHILS 0.4 %; EOSINOPHILS 0.3 %; HEMATOCRIT 38.2 % (37.0-47.0); HEMOGLOBIN 12.4 gm/dL (12.0-15.0); LYMPHOCYTES 18.1 %; MCH 27.7 pg (26.0-34.0); MCHC 32.6 g/dL (28.0-37.0); MCV 85.2 fL (80.0-100.0); MONOCYTES 6.7 %; MPV 7.7 fl. (7.2-11.1); NUCLEATED RBCS 0 /100WBC; PLATELET COUNT* 221 thou/uL (150-400); POLYS 74.5 %; RBC 4.48 mil/uL (4.20-5.00); RDW-CV 16.6 % (10.5-14.5); WBC 11.6 thou/uL (4.0-11.0)
[2021-07-27 04:31] LABS: CALCIUM 8.8 mg/dL (8.5-10.1); CREATININE 1.1 mg/dL (0.6-1.3); POTASSIUM 3.8 mmol/L (3.5-5.1)
--- NOTE | 2021-07-27 05:28 | NUR ---
PT STABLE. DENIES PAIN. BLOOD SUGARS REMAIN HIGH, 497 AND 450. WAS NOTIFIED, NO NEW ORDERS RECEIVED. BLOOD SUGAR WITH LAB WAS 288. UP TO BSC INDEPENDENTLY. CONTINUE TO BE ON 5L AND BIPAP. VITALS WNL. REMAINS FREE FROM INJURY.
--- NOTE | 2021-07-27 05:46 | NUR ---
ASSUMED CARE OF PT FROM [facility], PT CALM AND COOPERATIVE AGREEABLE AT THIS TIME TO BE ON UNIT. INTERIOR DESIGN PROGRAM CHAIR SHOWS NSR 92 02 4 L NC . PT HAVE LARGE AMOUNT OF SALTY SNACKS. PT APPEARS COMFORTABLE AT THIS TIME. WILL CONITINUE WITH CURRENT PLAN OF CARE.
[2021-07-27 09:00] VITALS: BP 173/78
[2021-07-27 16:34] VITALS: BP 173/78
[2021-07-27] MEDS ORDERED: PREDNISONE 10 M10 M1 PO (17:24)
[2021-07-27 18:26] VITALS: BP 173/78
== END 2021-07-27 17:10 | disposition home or self-care (01) | DRG 193 ==
LOC: M.ERS 19:06 → M.TBA-ER 22:03 → M.ORTHSURG 22:03 → M.2W 22:57 → M.ORTHSURG 07-27 05:41
PROVIDERS: Internal Medicine; Personal Emergency Response Attendant; ADMIT Internal Medicine; ATTEND Internal Medicine
PROC: 5A09357 Assistance with Respiratory Ventilation, Less than 24 Consecutive Hours, Continuous Positive Airway Pressure (ICD-10-PCS; principal; 2021-07-25)
PROC: 5A09357 Assistance with Respiratory Ventilation, Less than 24 Consecutive Hours, Continuous Positive Airway Pressure (ICD-10-PCS; 2021-07-26)
DX: J18.9 Pneumonia, unspecified organism (principal); J96.21 Acute and chronic respiratory failure with hypoxia; J44.1 Chronic obstructive pulmonary disease with (acute) exacerbation; J44.0 Chronic obstructive pulmonary disease with (acute) lower respiratory infection; Z68.43 Body mass index [BMI] 50.0-59.9, adult; I50.9 Heart failure, unspecified; M10.9 Gout, unspecified; E78.5 Hyperlipidemia, unspecified; G47.33 Obstructive sleep apnea (adult) (pediatric); I11.0 Hypertensive heart disease with heart failure; E11.65 Type 2 diabetes mellitus with hyperglycemia; Z20.822 Contact with and (suspected) exposure to COVID-19; K76.0 Fatty (change of) liver, not elsewhere classified; E66.01 Morbid (severe) obesity due to excess calories; Z87.891 Personal history of nicotine dependence; Z79.4 Long term (current) use of insulin

== ENCOUNTER 2021-08-06 22:02 | Inpatient (IN) | payer MEDICAID ==
[~2021-08-06] VITALS: Ht 157.5 cm; Wt 138.3 kg
[2021-08-06 22:29] VITALS: BP 138/88
[2021-08-06 22:37] LABS: ABSOLUTE BASOPHILS 0.2 thou/uL (0.0-0.2); ABSOLUTE EOSINOPHILS 0.1 thou/uL (0.0-0.7); ABSOLUTE LYMPHOCYTES 3.8 thou/uL (0.8-5.3); ABSOLUTE MONOCYTES 0.8 thou/uL (0.0-1.2); BASOPHILS 1.9 %; HEMATOCRIT 39.2 % (37.0-47.0); HEMOGLOBIN 12.5 gm/dL (12.0-15.0); LYMPHOCYTES 31.7 %; MCH 27.2 pg (26.0-34.0); MCHC 31.9 g/dL (28.0-37.0); MCV 85.2 fL (80.0-100.0); MONOCYTES 6.7 %; MPV 7.9 fl. (7.2-11.1); NUCLEATED RBCS 0 /100WBC; PLATELET COUNT* 148 thou/uL (150-400); POLYS 58.7 %; RDW-CV 16.9 % (10.5-14.5)
[2021-08-06 22:46] LABS: CREATININE 0.8 mg/dL (0.6-1.3); POTASSIUM 3.9 mmol/L (3.5-5.1)
[2021-08-06 22:49] LABS: APTT 23.9 Seconds (25.0-31.3); INR 0.9; PROTIME 9.8 Seconds (9.20-11.50)
[2021-08-06 22:53] LABS: BE 3.6 mmol/L (-2 to +3); pH 7.301 (7.340-7.450)
[2021-08-06 22:55] LABS: PCO2 66.2 mmHg (35.0-45.0); PO2 139.1 mmHg (75.0-100.0)
[2021-08-06 22:57] LABS: ALBUMIN 3.2 g/dL (3.4-5.0); CALCIUM 9.2 mg/dL (8.5-10.1); TOTAL BILIRUBIN 0.4 mg/dL (<0.1-1.0); TOTAL PROTEIN 7.1 g/dL (6.4-8.2)
[2021-08-07 04:37] VITALS: BP 137/79
[2021-08-07 08:30] VITALS: BP 146/66
[2021-08-07 09:12] VITALS: BP 146/66
--- NOTE | 2021-08-07 10:01 | EKG ---
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1960 Requested By: Melisa Ervin Order Number: [id number] MD: Clayton Montejo Measurements Intervals [employer] Rate: 103 P: 46 [place]: 154 QRS: -6 QRSD: 76 T: 151 QT: 296 QTc: 388 Interpretive Statements Sinus tachycardia Low voltage, precordial leads Abnormal T, consider ischemia, lateral leads Baseline wander in lead(s) I,III,aVL Compared to ECG 08/06/2021 22:09:40 Sinus rhythm no longer present T-wave abnormality still present Electronically Signed On 08-07-2021 10:00:41 CDT by Clayton Montejo [email or web address] <ELECTRONICALLY SIGNED> By: Clayton Montejo MD, [facility] 08/07/21 1000 1 1 Clayton Montejo MD, [facility] /EPI
[2021-08-07 12:10] VITALS: BP 148/62
[2021-08-07 15:55] VITALS: BP 120/52
--- NOTE | 2021-08-07 17:02 | EKG ---
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1960 Requested By: Melisa Ervin Order Number: [id number] MD: Clayton Montejo Measurements Intervals [place] Rate: 92 P: 46 [place]: 150 QRS: -8 QRSD: 81 T: 140 QT: 348 QTc: 431 Interpretive Statements Sinus rhythm Low voltage, precordial leads Nonspecific T abnormalities, lateral leads Baseline wander in lead(s) V1,V2,V3 Compared to ECG 07/25/2021 19:08:05 Low QRS voltage now present Electronically Signed On 08-07-2021 17:02:14 CDT by Clayton Montejo [email or web address] <ELECTRONICALLY SIGNED> By: Clayton Montejo MD, FACC 08/07/211701 08 08 Clayton Montejo MD, FAC /EPI
--- NOTE | 2021-08-07 18:50 | 2DMMODE ---
[place] [address] 2 D/M-MODE ECHOCARDIOGRAM Name: LEILA ANAND Room: [address] IN .R.#: [id number] Admission: 08/07/21 Attend Phys: Esperanza Son Discharge: Date of : 58 Date of Service: 08/07/21 1849 Report #: [id number] THIS REPORT FOR: cc: [facility] - Clinic physician unknown [facility] - Clinic physician unknown Clayton Montejo MD [facility] ~ APPROVED REPORT Study performed: 08/07/2021 17:26:09 EXAM: Limited 2D and color flow Echocardiogram Patient Location: In-Patient Room #: [facility] Status: routine BSA: 2.27 HR: 92 bpm BP: 148/62 mmHg Rhythm: NSR Other Information Study Quality: Adequate Indications Non STEMI Unable to visualized apical veiws. Left Ventricle The left ventricle is normal size. There is normal LV segmental wall motion. Mild concentric left ventricular hypertrophy. The left ventricular systolic function is normal. The left ventricular ejection fraction is within the normal range. LVEF is 55-60%. Right Ventricle The right ventricle is normal size. The right ventricular systolic function is normal. Atria The left atrium size is normal. The right atrium size is normal. Aortic Valve The aortic valve is normal in structure. Mitral Valve The mitral valve is [place] [address] 2 D/M-MODE ECHOCARDIOGRAM Name: LEILA ANAND Room: [address] IN M.R.#: [id number] Admission: 08/07/21 Attend Phys: Esperanza Son Discharge: Date of : 58 Date of Service: 08/07/211848 Report #: [id number] Tricuspid Valve The tricuspid valve is normal in structure. Pulmonic Valve The pulmonary valve is normal in structure. Great Vessels The aortic root is normal in size. Pericardium There is no pericardial effusion. <Conclusion> LVEF is 55-60%. There is no pericardial effusion. <ELECTRONICALLY SIGNED> By: Clayton Montejo MD, FACC 08/07/211848 48 48 Clayton Montejo MD, FACC /INF
[2021-08-08 00:44] VITALS: BP 148/76
[2021-08-08 04:29] LABS: HEMATOCRIT 37.9 % (37.0-47.0); MCH 27.5 pg (26.0-34.0); MCHC 31.7 g/dL (28.0-37.0); MCV 86.6 fL (80.0-100.0); MPV 7.5 fl. (7.2-11.1); RBC 4.38 mil/uL (4.20-5.00); RDW-CV 17.3 % (10.5-14.5); WBC 10.2 thou/uL (4.0-11.0)
[2021-08-08 04:32] VITALS: BP 146/60
[2021-08-08 04:52] LABS: ALBUMIN 3.1 g/dL (3.4-5.0); ALKALINE PHOSPHATASE 142 U/L (46-116); ANION GAP 7 mmol/L (7-16); BUN 25 mg/dL (7-18); CALCIUM 8.8 mg/dL (8.5-10.1); CHLORIDE 98 mmol/L (98-107); CHOLESTEROL 148 mg/dL (<200); CO2 33 mmol/L (21-32); CREATININE 1.3 mg/dL (0.6-1.3); GLUCOSE 375 mg/dL (70-99); HDL CHOLESTEROL 46 mg/dL (>40); LDL CHOLESTEROL 41 mg/dL (<100); POTASSIUM 4.9 mmol/L (3.5-5.1); SGOT 16 U/L (15-37); SGPT 40 U/L (30-65); SODIUM 138 mmol/L (136-145); TC:HDL 3.2 Ratio (Not establshd); TOTAL BILIRUBIN 0.5 mg/dL (<0.1-1.0); TOTAL PROTEIN 7.1 g/dL (6.4-8.2); TRIGLYCERIDE 307 mg/dL (<150); VLDL 61 mg/dL (<40)
[2021-08-08 08:00] VITALS: BP 142/52
[2021-08-08 09:30] LABS: MAGNESIUM 2.2 mg/dL (1.8-2.4)
[2021-08-08 12:59] LABS: SERUM ASSESSMENT Clear
[2021-08-08 15:40] VITALS: BP 153/69
[2021-08-08 19:30] VITALS: BP 140/66
[2021-08-09] VITALS: BP 116/41
[2021-08-09 04:00] VITALS: BP 146/71
[2021-08-09 06:23] LABS: HEMATOCRIT 37.2 % (37.0-47.0); MCH 27.4 pg (26.0-34.0); MCHC 32.3 g/dL (28.0-37.0); MCV 84.9 fL (80.0-100.0); MPV 7.5 fl. (7.2-11.1); RBC 4.37 mil/uL (4.20-5.00); RDW-CV 16.7 % (10.5-14.5); WBC 9.8 thou/uL (4.0-11.0)
[2021-08-09 06:35] LABS: ALBUMIN 3.2 g/dL (3.4-5.0); CALCIUM 8.8 mg/dL (8.5-10.1); CREATININE 1.4 mg/dL (0.6-1.3); MAGNESIUM 1.9 mg/dL (1.8-2.4); POTASSIUM 3.3 mmol/L (3.5-5.1); TOTAL BILIRUBIN 0.5 mg/dL (<0.1-1.0); TOTAL PROTEIN 7.4 g/dL (6.4-8.2)
[2021-08-09 09:00] VITALS: BP 112/42
[2021-08-09 16:00] VITALS: BP 115/36
[2021-08-09 20:14] VITALS: BP 107/58
[2021-08-10] VITALS: BP 126/79
[2021-08-10 04:00] VITALS: BP 116/54
[2021-08-10 04:23] LABS: HEMATOCRIT 37.2 % (37.0-47.0); HEMOGLOBIN 12.1 gm/dL (12.0-15.0); MCH 27.5 pg (26.0-34.0); MCHC 32.4 g/dL (28.0-37.0); MCV 84.9 fL (80.0-100.0); MPV 7.6 fl. (7.2-11.1); RBC 4.38 mil/uL (4.20-5.00); RDW-CV 16.8 % (10.5-14.5); WBC 11.5 thou/uL (4.0-11.0)
[2021-08-10 04:58] LABS: ALBUMIN 3.3 g/dL (3.4-5.0); CREATININE 1.4 mg/dL (0.6-1.3); MAGNESIUM 1.9 mg/dL (1.8-2.4); POTASSIUM 3.4 mmol/L (3.5-5.1); TOTAL BILIRUBIN 0.4 mg/dL (<0.1-1.0); TOTAL PROTEIN 7.6 g/dL (6.4-8.2)
[2021-08-10 08:34] VITALS: BP 123/53
[2021-08-10 14:13] VITALS: BP 128/57
--- NOTE | 2021-08-10 16:42 | CARDNUC ---
[place] [address] CARDIAC NUCLEAR IMAGING REPORT Name: KIKALEILA K Room: [address] IN [facility]#: [id number] Admission: 08/07/21 Attend Phys: Esperanza Son Discharge: Date of : 58 Date of Service: 08/10/21 1641 Report #: [id number] THIS REPORT FOR: cc: [facility] - Clinic physician unknown [facility] - Clinic physician unknown Romario Simeon MD [facility] ~ APPROVED REPORT Imaging Protocol: Stress Tc-99m/Rest Tc-99m 2 days Study performed: 08/07/2021 12:16:00 Indication: Dyspnea Patient Location: In-Patient Room #: 102 Stress Nurse: Antionette Alejandro RN Ht: 5 ft 2 in Wt: 300 lbs BSA: 2.27 m2 BMI: 54.86 Medical History Medical History: CAD s/p stent, CHF, COPD, Diabetes, HTN, Hyperlipidemia, Former Smoker Medications: furosemide, colestipol, asa-81, atorvastatin, diltiazem Allergies: No known drug allergies Cardiac Risk Factors: Age, DM, HTN, Hyperlipidemia, Past Smoker Previous Cardiac Procedures: PCI Exercise History: Sedentary Resting Data Rest SPECT myocardial perfusion imaging was performed in supine position 30 minutes following the intravenous injection of 35.5 mCi of Tc-99m Sestamibi. Time of rest injection: 1500 Date: 08/07/2021 The images were gated to evaluate regional wall motion and calculate left ventricular ejection fraction. Administration Route: IV Pharmacologic Stress Pharmacologic stress test was performed by injecting Regadenoson 0.4 mg IV push over 10-15 seconds immediately followed by the intravenous injection of 31.0 mCi of Tc-99m Sestamibi. Time of stress injection: 11:05 Date: 08/10/2021 [place] [address] CARDIAC NUCLEAR IMAGING REPORT Name: LEILA ANAND Room: [address]#: [id number] Admission: 08/07/21 Attend Phys: Esperanza Son Discharge: Date of : 58 Date of Service: 08/10/21 1641 Report #: [id number] Administration Route: IV Heart Rate at time of stress injection: 106 bpm. Gated Stress SPECT was performed 45 minutes after stress injection. The images were gated to evaluate regional wall motion and calculate left ventricular ejection fraction. Stress Test Details Stress Test: Pharmacologic stress testing performed using 0.4 mg of regadenoson per 5 mL given IV over 10 seconds. Reason for pharmacologic stress test: unsteady gait and on ixygen. HR Max Heart Rate (APMHR): 158 bpm Resting HR: 94 bpm Target HR (85% APMHR): 134 bpm Max HR Achieved: 107 bpm % of APMHR: 67 Recovery HR: 98 bpm BP Resting BP: 214/47 mmHg Max BP: 192/43 mmHg Recovery BP: 176/57 mmHg ECG Resting ECG: Sinus Rhythm Stress ECG: Sinus Tachycardia ST Change: None Arrhythmia: None Recovery ECG: Sinus Rhythm Recovery ST Change: None Recovery Arrhythmia: None Clinical Reason for Termination: Completed protocol The patient's had no significant cardiac symptoms with Lexiscan infusion. Stress ECG Conclusion The baseline twelve-lead EKG shows sinus rhythm without significant ST segment abnormality. EKGs obtained during and post Lexiscan infusion show sinus rhythm and sinus tachycardia with no significant ST segment or T wave changes when compared to baseline. There were no stress-induced arrhythmias. Study Quality Study: [place] [address] CARDIAC NUCLEAR IMAGING REPORT Name: KIKANAWAFLEILA Amanda Room: [address]#: [id number] Admission: 08/07/21 Attend Phys: Esperanza Son Discharge: Date of : 58 Date of Service: 08/10/21 1641 Report #: [id number] Artifact: No artifact Study Data At rest, the left ventricular ejection fraction was 90%.. Post stress, the left ventricular ejection was 90%.. Perfusion Perfusion images obtained at rest and post Lexiscan stress showed uniform uptake of the radioisotope throughout the myocardium. There were no defects to suggest infarct or ischemia. Wall Motion Normal left ventricular wall motion. Nuclear Conclusion ECG Findings: negative for ischemia Clinical Findings: negative for ischemia Nuclear Findings: negative for ischemia Exercise Capacity: not assessed Left Ventricular Function: normal Risk Study: low Perfusion images show no defect to suggest infarct or ischemia. Left ventricular systolic function appears vigorous on gated studies. This is a low risk study. <Conclusion> The baseline twelve-lead EKG shows sinus rhythm without significant ST segment abnormality. EKGs obtained during and post Lexiscan infusion show sinus rhythm and sinus tachycardia with no significant ST segment or T wave changes when compared to baseline. There were no stress-induced arrhythmias. <ELECTRONICALLY SIGNED> By: Romario Simeon MD, FACC 08/10/211640 40 40 Romario Simeon MD, FACC /INF
[2021-08-10 18:54] VITALS: BP 117/40
[2021-08-10 20:00] VITALS: BP 125/50
[2021-08-11 00:04] VITALS: BP 120/50
[2021-08-11 03:49] VITALS: BP 110/47
[2021-08-11 04:07] LABS: HEMATOCRIT 36.8 % (37.0-47.0); HEMOGLOBIN 11.7 gm/dL (12.0-15.0); MCH 26.8 pg (26.0-34.0); MCHC 31.9 g/dL (28.0-37.0); MCV 84.1 fL (80.0-100.0); MPV 7.5 fl. (7.2-11.1); RBC 4.37 mil/uL (4.20-5.00); RDW-CV 17.2 % (10.5-14.5); WBC 11.2 thou/uL (4.0-11.0)
[2021-08-11 04:35] LABS: ALBUMIN 3.3 g/dL (3.4-5.0); CREATININE 1.7 mg/dL (0.6-1.3); MAGNESIUM 2.1 mg/dL (1.8-2.4); POTASSIUM 3.9 mmol/L (3.5-5.1); TOTAL BILIRUBIN 0.3 mg/dL (<0.1-1.0); TOTAL PROTEIN 7.5 g/dL (6.4-8.2)
[2021-08-11 08:10] VITALS: BP 136/59
[2021-08-11 12:00] VITALS: BP 120/55
[2021-08-11 16:00] VITALS: BP 119/59
[2021-08-11 19:45] VITALS: BP 133/62
[2021-08-12 00:35] VITALS: BP 142/48
[2021-08-12 04:27] VITALS: BP 147/50
[2021-08-12 04:35] LABS: HEMATOCRIT 35.4 % (37.0-47.0); HEMOGLOBIN 11.3 gm/dL (12.0-15.0); MCH 27.1 pg (26.0-34.0); MCV 84.6 fL (80.0-100.0); MPV 7.7 fl. (7.2-11.1); RBC 4.18 mil/uL (4.20-5.00); RDW-CV 16.6 % (10.5-14.5); WBC 10.3 thou/uL (4.0-11.0)
[2021-08-12 04:53] LABS: CALCIUM 9.2 mg/dL (8.5-10.1); CREATININE 1.2 mg/dL (0.6-1.3); MAGNESIUM 2.4 mg/dL (1.8-2.4); POTASSIUM 4.3 mmol/L (3.5-5.1); TOTAL BILIRUBIN 0.3 mg/dL (<0.1-1.0); TOTAL PROTEIN 6.9 g/dL (6.4-8.2)
[2021-08-12 08:10] VITALS: BP 142/56
[2021-08-12 12:51] VITALS: BP 142/66
[2021-08-12 16:30] VITALS: BP 118/64
[2021-08-12 19:45] VITALS: BP 132/53
[2021-08-13 00:29] VITALS: BP 118/52
[2021-08-13 04:14] LABS: HEMATOCRIT 35.3 % (37.0-47.0); HEMOGLOBIN 11.4 gm/dL (12.0-15.0); MCH 27.4 pg (26.0-34.0); MCHC 32.4 g/dL (28.0-37.0); MCV 84.7 fL (80.0-100.0); MPV 7.5 fl. (7.2-11.1); RBC 4.17 mil/uL (4.20-5.00); RDW-CV 17.1 % (10.5-14.5); WBC 11.4 thou/uL (4.0-11.0)
[2021-08-13 04:26] LABS: CALCIUM 9.1 mg/dL (8.5-10.1); CREATININE 1.2 mg/dL (0.6-1.3); POTASSIUM 4.1 mmol/L (3.5-5.1)
[2021-08-13 04:33] VITALS: BP 133/73
[2021-08-13 08:45] VITALS: BP 134/54
[2021-08-13 12:14] VITALS: BP 117/56
[2021-08-13 15:57] VITALS: BP 144/70
[2021-08-13 20:00] VITALS: BP 134/74
[2021-08-14] VITALS: BP 141/73
[2021-08-14 04:43] VITALS: BP 142/68
[2021-08-14 07:45] VITALS: BP 114/58
[2021-08-14 12:30] VITALS: BP 99/51
[2021-08-14 17:06] VITALS: BP 135/58
[2021-08-14 20:00] VITALS: BP 144/75
[2021-08-15] VITALS: BP 132/74
[2021-08-15 04:48] VITALS: BP 138/59
[2021-08-15 08:10] VITALS: BP 149/65
[2021-08-15 11:06] VITALS: BP 138/59
[2021-08-15 12:37] VITALS: BP 101/54
[2021-08-15 18:07] VITALS: BP 138/59
== END 2021-08-15 23:22 | disposition home or self-care (01) | DRG 280 ==
LOC: M.ERS 22:02 → M.TBA-ER 08-07 01:54 → M.ORTHSURG 08-07 09:25
PROVIDERS: Internal Medicine; Personal Emergency Response Attendant; Registered Nurse; ADMIT Internal Medicine; ATTEND Internal Medicine
PROC: 5A09357 Assistance with Respiratory Ventilation, Less than 24 Consecutive Hours, Continuous Positive Airway Pressure (ICD-10-PCS; 2021-08-09)
PROC: 5A0935A Assistance with Respiratory Ventilation, Less than 24 Consecutive Hours, High Flow/Velocity Cannula (ICD-10-PCS; 2021-08-09)
PROC: 5A0935A Assistance with Respiratory Ventilation, Less than 24 Consecutive Hours, High Flow/Velocity Cannula (ICD-10-PCS; 2021-08-10)
PROC: 5A09357 Assistance with Respiratory Ventilation, Less than 24 Consecutive Hours, Continuous Positive Airway Pressure (ICD-10-PCS; 2021-08-11)
PROC: 5A0935A Assistance with Respiratory Ventilation, Less than 24 Consecutive Hours, High Flow/Velocity Cannula (ICD-10-PCS; 2021-08-11)
PROC: 5A09357 Assistance with Respiratory Ventilation, Less than 24 Consecutive Hours, Continuous Positive Airway Pressure (ICD-10-PCS; 2021-08-12)
PROC: 5A0935A Assistance with Respiratory Ventilation, Less than 24 Consecutive Hours, High Flow/Velocity Cannula (ICD-10-PCS; 2021-08-12)
PROC: 5A09357 Assistance with Respiratory Ventilation, Less than 24 Consecutive Hours, Continuous Positive Airway Pressure (ICD-10-PCS; 2021-08-13)
PROC: 5A0935A Assistance with Respiratory Ventilation, Less than 24 Consecutive Hours, High Flow/Velocity Cannula (ICD-10-PCS; 2021-08-13)
PROC: 5A09357 Assistance with Respiratory Ventilation, Less than 24 Consecutive Hours, Continuous Positive Airway Pressure (ICD-10-PCS; 2021-08-14)
PROC: 5A0935A Assistance with Respiratory Ventilation, Less than 24 Consecutive Hours, High Flow/Velocity Cannula (ICD-10-PCS; 2021-08-14)
PROC: 5A09357 Assistance with Respiratory Ventilation, Less than 24 Consecutive Hours, Continuous Positive Airway Pressure (ICD-10-PCS; principal; 2021-08-15)
DX: I21.4 Non-ST elevation (NSTEMI) myocardial infarction (principal); J96.01 Acute respiratory failure with hypoxia; I50.33 Acute on chronic diastolic (congestive) heart failure; Z68.43 Body mass index [BMI] 50.0-59.9, adult; J44.1 Chronic obstructive pulmonary disease with (acute) exacerbation; I11.0 Hypertensive heart disease with heart failure; Z20.822 Contact with and (suspected) exposure to COVID-19; E78.5 Hyperlipidemia, unspecified; G47.33 Obstructive sleep apnea (adult) (pediatric); E66.9 Obesity, unspecified; G89.29 Other chronic pain; E11.9 Type 2 diabetes mellitus without complications; I25.10 Atherosclerotic heart disease of native coronary artery without angina pectoris; Z95.5 Presence of coronary angioplasty implant and graft